=== PATIENT | female | born 1950 | race Caucasian/White ===

== ENCOUNTER → 2017-04-07 | Outpatient (CLI) | payer MEDICARE ==
--- NOTE | 2017-04-07 15:49 | CT ---
EXAMINATION TYPE: CT thoracic spine wo con DATE OF EXAM: 04/07/2017 COMPARISON: NONE HISTORY: Middle back pain. No known injury. CT DLP: 1251 mGycm Automated exposure control for dose reduction was used. Helical acquisition through the thoracic spin e. Coronal and sagittal reconstructions. FINDINGS: Postop changes are noted to the thoracic lumbar spine. There is artifact present. Thoracic vertebral bodies are intact. There is maintained height and alignment. There is multilevel s pondylosis. Vacuum phenomenon present at the intervertebral region of multiple levels. No significant spinal stenosis. No sizable disc herniation. Some facet arthropathy changes present at the lower lum bar levels. T12-L1 show some hypertrophic change at the ligamentum flavum likely encroaching on the l ateral recesses. No definite foraminal encroachment. There is mild spinal curvature. The heart may be enlarged. IMPRESSION: POSTOP CHANGES. DEGENERATIVE DISC DISEASE. FACET ARTHROPATHY. MILD SPINAL CURVATURE. ADDITIONAL FINDI NGS ABOVE.
== END | disposition home or self-care (01) ==
LOC: RADCTMAIN 15:05
PROVIDERS: ATTEND Orthopaedic Surgery
DX: M51.34 Other intervertebral disc degeneration, thoracic region (principal); M46.04 Spinal enthesopathy, thoracic region; M43.8X4 Other specified deforming dorsopathies, thoracic region; Z98.890 Other specified postprocedural states
CPT/HCPCS: 72128

== ENCOUNTER 2017-04-26 14:04 | Observation (INO) | payer MEDICARE ==
[2017-04-26] MEDS ORDERED: SODIUM CHLORIDE 0.9% 1,000 ML IV STA ×2 (14:23)
--- NOTE | 2017-04-26 14:42 | ED ---
General Adult HPI - General Chief complaint: Syncope Stated complaint: spouse states she blacked out in the car Time Seen by Provider: 04/26/17 14:22 Source: patient, RN notes reviewed, old records reviewed Mode of arrival: wheelchair Limitations: no limitations - History of Present Illness Initial comments: This is a 66-year-old female to the ER for evaluation. This patient presents today for evaluation of syncopal event. Patient was driving with family member , room began spinning, patient began to feel weak and lightheaded and then passed out. Patient's states there was then seizure-like activity patient stated blankly into space for about 2 minutes and no symptoms persisted. Patient has been feeling fine lately no nausea no vomiting no fevers. No other significant symptoms or complaints. Patient feels a little shaky at this time with headache denies chest pain or shortness of breath. No recent travel history no change of medications denies drugs or alcohol. Patient states she has had similar symptoms before I did see a neurologist for abnormal CT findings - Related Data Home Medications Medication Instructions Recorded Confirmed Baclofen [Lioresal] 10 mg PO BID 04/26/17 04/26/17 Cetirizine HCl [Zyrtec] 10 mg PO DAILY 04/26/17 04/26/17 Cholecalciferol (Vitamin D3) 2,000 unit PO DAILY 04/26/17 04/26/17 [Vitamin D3] DULoxetine HCL [Cymbalta] 60 mg PO DAILY 04/26/17 04/26/17 Dicyclomine [Bentyl] 20 mg PO QID PRN 04/26/17 04/26/17 Gabapentin [Neurontin] 600 mg PO Q6H 04/26/17 04/26/17 Levothyroxine Sodium [Synthroid] 112 mcg PO DAILY 04/26/17 04/26/17 Liothyronine Sodium [Cytomel] 10 mcg PO DAILY 04/26/17 04/26/17 Losartan Potassium [Cozaar] 100 mg PO DAILY 04/26/17 04/26/17 Meloxicam [Mobic] 15 mg PO DAILY 04/26/17 04/26/17 Multivitamins, Thera [Multivitamin 1 tab PO DAILY 04/26/17 04/26/17 (formulary)] Oxybutynin Chloride [Ditropan] 5 mg PO BID 04/26/17 04/26/17 Pantoprazole Sodium [Protonix] 40 mg PO DAILY 04/26/17 04/26/17 amLODIPine [Norvasc] 5 mg PO DAILY 04/26/17 04/26/17 oxyCODONE-APAP 10-325MG [Percocet 1 tab PO Q8H PRN 04/26/17 04/26/17 10-325 mg] Allergies Allergy/AdvReac Type Severity Reaction Status Date / Time adhesive tape Allergy Rash/Hives Verified 04/26/17 14:44 hydrocodone [From Vicodin] Allergy Rash/Hives Verified 04/26/17 14:44 metaxalone [From Skelaxin] Allergy Rash/Hives Verified 04/26/17 14:44 methocarbamol [From Robaxin] Allergy Rash/Hives Verified 04/26/17 14:44 Sulfa (Sulfonamide Allergy Rash/Hives Verified 04/26/17 14:44 Antibiotics) Review of Systems ROS Statement: Those systems with pertinent positive or pertinent negative responses have been documented in the HPI. ROS Other: All systems not noted in ROS Statement are negative. 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, back pain History of Any Multi-Drug Resistant Organisms: None Reported Past Surgical History: Back Surgery, Cholecystectomy, Joint Replacement, Orthopedic Surgery Additional Past Surgical History / Comment(s): left knee and left hip replacement, right wrist surgery Past Psychological History: Anxiety Smoking Status: Never smoker Past Alcohol Use History: None Reported Past Drug Use History: None Reported General Exam Limitations: no limitations General appearance: alert, in no apparent distress Head exam: Present: atraumatic, normocephalic, normal inspection Eye exam: Present: normal appearance, PERRL, EOMI. Absent: scleral icterus, conjunctival injection, periorbital swelling ENT exam: Present: normal exam, mucous membranes moist Neck exam: Present: normal inspection. Absent: tenderness, meningismus, lymphadenopathy Respiratory exam: Present: normal lung sounds bilaterally. Absent: respiratory distress, wheezes, rales, rhonchi, stridor Cardiovascular Exam: Present: regular rate, normal rhythm, normal heart sounds. Absent: systolic murmur, diastolic murmur, rubs, gallop, clicks GI/Abdominal exam: Present: soft, normal bowel sounds. Absent: distended, tenderness, guarding, rebound, rigid Extremities exam: Present: normal inspection, full ROM, normal capillary refill. Absent: tenderness, pedal edema, joint swelling, calf tenderness Back exam: Present: normal inspection Neurological exam: Present: alert, oriented X3, CN II-XII intact Psychiatric exam: Present: normal affect, normal mood Skin exam: Present: warm, dry, intact, normal color. Absent: rash Course Vital Signs 04/26/17 14:06 Temperature 97.0 F L Pulse Rate 83 Respiratory 16 Rate Blood Pressure 141/72 O2 Sat by Pulse 99 Oximetry - Reevaluation(s) Reevaluation #1: 04/26/17 15:38 She does have history of nodules on brain, patient is aware of these, may have been cause of prior episodes of syncope, same findings on today's CT brain Reevaluation #2: 04/26/17 15:39 Patient is without syncopal event here in the ER EKG Findings - EKG Comments: EKG Findings:: EKG shows normal sinus rate of 84, OH 154, QRS 132, QTc 479 Medical Decision Making - Medical Decision Making 66 female ER for evaluation of syncope. Patient has history of syncope which was similar events. Patient's symptoms lasted about 2 hours, patient new symptom is that she also seizure-like activity and confusion. Patient be admitted for neurological evaluation - Lab Data Result diagrams: 04/26/17 14:20 04/26/17 14:20 Lab Results 04/26/17 04/26/17 04/26/17 Range/Units 14:20 14:20 14:20 WBC 6.3 (3.8-10.6) k/uL RBC 4.88 (3.80-5.40) m/uL Hgb 14.0 (11.4-16.0) gm/dL Hct 42.5 (34.0-46.0) % MCV 87.1 (80.0-100.0) fL MCH 28.6 (25.0-35.0) pg MCHC 32.8 (31.0-37.0) g/dL RDW 14.5 (11.5-15.5) % Plt Count 284 (150-450) k/uL Neutrophils % 55 % Lymphocytes % 29 % Monocytes % 8 % Eosinophils % 5 % Basophils % 1 % Neutrophils # 3.5 (1.3-7.7) k/uL Lymphocytes # 1.9 (1.0-4.8) k/uL Monocytes # 0.5 (0-1.0) k/uL Eosinophils # 0.3 (0-0.7) k/uL Basophils # 0.1 (0-0.2) k/uL PT (9.0-12.0) sec INR (<1.2) APTT (22.0-30.0) sec D-Dimer (<0.60) mg/L FEU Sodium 139 (137-145) mmol/L Potassium 3.8 (3.5-5.1) mmol/L Chloride 103 (98-107) mmol/L Carbon Dioxide 25 (22-30) mmol/L Anion Gap 11 mmol/L BUN 15 (7-17) mg/dL Creatinine 0.63 (0.52-1.04) mg/dL Est GFR (MDRD) Af Amer >60 (>60 ml/min/1.73 sqM) Est GFR (MDRD) Non-Af >60 (>60 ml/min/1.73 sqM) Glucose 128 H (74-99) mg/dL Calcium 9.2 (8.4-10.2) mg/dL Phosphorus 3.2 (2.5-4.5) mg/dL Magnesium 1.8 (1.6-2.3) mg/dL Total Bilirubin 0.5 (0.2-1.3) mg/dL AST 35 (14-36) U/L ALT 45 (9-52) U/L Alkaline Phosphatase 166 H (38-126) U/L Total Creatine Kinase 40 (30-135) U/L CK-MB (CK-2) 0.9 (0.0-2.4) ng/mL CK-MB (CK-2) Rel Index 2.3 Troponin I <0.012 (0.000-0.034) ng/mL Total Protein 6.8 (6.3-8.2) g/dL Albumin 4.1 (3.5-5.0) g/dL Urine Color Urine Appearance (Clear) Urine pH (5.0-8.0) Ur Specific [place] (1.001-1.035) Urine Protein (Negative) Urine Glucose (UA) (Negative) Urine Ketones (Negative) Urine Blood (Negative) Urine Nitrite (Negative) Urine Bilirubin (Negative) Urine Urobilinogen (<2.0) mg/dL Ur Leukocyte Esterase (Negative) 04/26/17 04/26/17 Range/Units 14:20 15:15 WBC (3.8-10.6) k/uL RBC (3.80-5.40) m/uL Hgb (11.4-16.0) gm/dL Hct (34.0-46.0) % MCV (80.0-100.0) fL MCH (25.0-35.0) pg MCHC (31.0-37.0) g/dL RDW (11.5-15.5) % Plt Count (150-450) k/uL Neutrophils % % Lymphocytes % % Monocytes % % Eosinophils % % Basophils % % Neutrophils # (1.3-7.7) k/uL Lymphocytes # (1.0-4.8) k/uL Monocytes # (0-1.0) k/uL Eosinophils # (0-0.7) k/uL Basophils # (0-0.2) k/uL PT 10.3 (9.0-12.0) sec INR 1.0 (<1.2) APTT 23.5 (22.0-30.0) sec D-Dimer 0.86 H (<0.60) mg/L FEU Sodium (137-145) mmol/L Potassium (3.5-5.1) mmol/L Chloride (98-107) mmol/L Carbon Dioxide (22-30) mmol/L Anion Gap mmol/L BUN (7-17) mg/dL Creatinine (0.52-1.04) mg/dL Est GFR (MDRD) Af Amer (>60 ml/min/1.73 sqM) Est GFR (MDRD) Non-Af (>60 ml/min/1.73 sqM) Glucose (74-99) mg/dL Calcium (8.4-10.2) mg/dL Phosphorus (2.5-4.5) mg/dL Magnesium (1.6-2.3) mg/dL Total Bilirubin (0.2-1.3) mg/dL AST (14-36) U/L ALT (9-52) U/L Alkaline Phosphatase (38-126) U/L Total Creatine Kinase (30-135) U/L CK-MB (CK-2) (0.0-2.4) ng/mL CK-MB (CK-2) Rel Index Troponin I (0.000-0.034) ng/mL Total Protein (6.3-8.2) g/dL Albumin (3.5-5.0) g/dL Urine Color Yellow Urine Appearance Clear (Clear) Urine pH 7.0 (5.0-8.0) Ur Specific [place] 1.015 (1.001-1.035) Urine Protein Trace H (Negative) Urine Glucose (UA) Negative (Negative) Urine Ketones Negative (Negative) Urine Blood Negative (Negative) Urine Nitrite Negative (Negative) Urine Bilirubin Negative (Negative) Urine Urobilinogen 2.0 (<2.0) mg/dL Ur Leukocyte Esterase Negative (Negative) - Radiology Data Radiology results: report reviewed (CT brain negative, CT chest negative.), image reviewed Disposition Clinical Impression: Vasovagal syncope Disposition: ADMITTED IP TO THIS [facility] Condition: Fair Referrals: Cian Bonilla MD [Primary Care Provider] - 1-2 days
[2017-04-26 14:43] LABS: Basophils # (A) 0.1 k/uL (0-0.2); Basophils % (A) 1 %; CH 28.3; CHCM 32.6; Eosinophils # (A) 0.3 k/uL (0-0.7); Eosinophils % (A) 5 %; HCT 42.5 % (34.0-46.0); HDW 2.38; Luc # (Auto) 0.16; Luc % (Auto) 3; Lymphocytes # (A) 1.9 k/uL (1.0-4.8); Lymphocytes % (A) 29 %; MCH 28.6 pg (25.0-35.0); MCHC 32.8 g/dL (31.0-37.0); MCV 87.1 fL (80.0-100.0); Mean Platelet Volume 8.2; Monocytes # (A) 0.5 k/uL (0-1.0); Monocytes % (A) 8 %; Neutrophils # (A) 3.5 k/uL (1.3-7.7); Neutrophils % (A) 55 %; RBC 4.88 m/uL (3.80-5.40); RDW 14.5 % (11.5-15.5); WBC 6.3 k/uL (3.8-10.6)
[2017-04-26 14:56] LABS: ALT 45 U/L (9-52); AST 35 U/L (14-36); Alkaline Phosphatase 166 U/L (38-126); Anion Gap 11 mmol/L; Blood Urea Nitrogen 15 mg/dL (7-17); Calcium 9.2 mg/dL (8.4-10.2); Carbon Dioxide 25 mmol/L (22-30); Chloride 103 mmol/L (98-107); Glucose 128 mg/dL (74-99); Magnesium 1.8 mg/dL (1.6-2.3); Non-African American GFR(MDRD) >60 (>60 ml/min/1.73 sqM); Phosphorus 3.2 mg/dL (2.5-4.5); Sodium 139 mmol/L (137-145); Total Bilirubin 0.5 mg/dL (0.2-1.3); Total Protein 6.8 g/dL (6.3-8.2)
[2017-04-26 14:59] LABS: Partial Thromboplastin Time 23.5 sec (22.0-30.0); Prothrombin Time 10.3 sec (9.0-12.0)
[2017-04-26 15:02] LABS: Potassium 3.8 mmol/L (3.5-5.1)
[2017-04-26 15:08] LABS: Creatine Kinase 40 U/L (30-135)
[2017-04-26] MEDS ORDERED: RX INFO: IV CONTRAST WAS GIVEN 1 EACH MISC MISCELLANE PRN (15:08)
--- NOTE | 2017-04-26 15:09 | CT ---
EXAMINATION TYPE: CT brain wo con DATE OF EXAM: 04/26/2017 HISTORY: Blacked out CT DLP: 985.6 mGycm. Automated Exposure Control for Dose Reduction was Utilized. TECHNIQUE: CT scan of the head is performed without contrast. COMPARISON: None. FINDINGS: There is no acute intracranial hemorrhage or midline shift identified. There is diffuse v entricular and sulcal prominence consistent with diffuse age-related cerebral atrophy. There is low- attenuation in the periventricular white matter consistent with chronic small vessel ischemic change. There is 1.5 cm transverse by 1.4 cm AP diameter by 1.1 cm craniocaudal hyperdense oval well-define d lesion anterior suprasellar level on axial image 15 and sagittal image 25. The globes are intact an d the visualized sinuses are clear. No sellar mass is noted. IMPRESSION: No acute intracranial hemorrhage or midline shift. There is mild diffuse age-related ce rebral atrophy and chronic small vessel ischemic change noted. Round anterior hyperdense suprasellar extra-axial mass, differential would favor vascular etiology or aneurysm based on location relative to the kaibab of [place], neoplasm or meningioma is in differential, other etiologies are not excluded . Correlation with old outside CT and MRI is advised. Further investigation with MRI/MRA study can be performed based on clinical and outside imaging correlation.
[2017-04-26 15:21] LABS: Creatine Kinase MB 0.9 ng/mL (0.0-2.4); Troponin I <0.012 ng/mL (0.000-0.034)
[2017-04-26 15:30] LABS: Appearance,Urine Clear (Clear); Bilirubin,Urine Negative (Negative); Glucose,Urine (UA) Negative (Negative); Ketones,Urine Negative (Negative); Leukocyte Esterase,Urine Negative (Negative); Nitrite,Urine Negative (Negative); Protein,Urine Trace (Negative); Specific Gravity,Urine 1.015 (1.001-1.035); UA Billing (MACRO vs. MICRO) CHEM
[2017-04-26] MEDS ORDERED: ASPIRIN 325 MG TAB PO STA (15:34)
--- NOTE | 2017-04-26 15:48 | CT ---
EXAMINATION TYPE: CT angio chest DATE OF EXAM: 04/26/2017 COMPARISON: NONE HISTORY: Syncope today. Chest pain per order. CT DLP: 588 mGycm. Automated Exposure Control for Dose Reduction was Utilized. CONTRAST: CTA scan of the thorax is performed with IV Contrast, patient injected with 90 mL of Omnipaque 350, p ulmonary embolism protocol. MIP Images are created on CT scanner and reviewed. FINDINGS: LUNGS: Dependent atelectasis is present both lower lobes. Central increased opacity mosaic attenuatio n is consistent with mild congestion. No suspicious focal consolidation is seen. No pleural effusion or pneumothorax is present bilaterally. MEDIASTINUM: There is suboptimal bolus with heterogeneity and equal contrast in right and left heart systems but there is no convincing CT evidence for acute pulmonary embolism. There are no greater th an 1 cm hilar or mediastinal lymph nodes. No significant pericardial effusion is seen. Cardiomegaly is present. OTHER: There are posterior interpedicular rods and screws transfixing T11-L1 levels bilaterally. Ther e is moderate to severe anterior spurring mid to lower thoracic spine above this. There is sclerosis and disc space narrowing T10-T11 level. There is posterior spur disc effacing anterior thecal sac L1- L2 level on sagittal image 78. IMPRESSION: 1. Suboptimal study without CT evidence for pulmonary embolism. 2. Cannot exclude CHF exacerbation as there is cardiomegaly with suspected mild central vascular sarah beth estion, clinical correlation advised. No suspicious focal infiltrate noted.
--- NOTE | 2017-04-26 17:24 | US ---
EXAMINATION TYPE: US carotid duplex BILAT DATE OF EXAM: 04/26/2017 COMPARISON: NONE CLINICAL HISTORY: Stenosis. Weakness on admission. EXAM MEASUREMENTS: RIGHT: Peak Systolic Velocity (PSV) cm/sec ----- Right CCA: 85.9 ----- Right ICA: 79.0 ----- Right ECA: 56.9 ICA/CCA ratio: 0.9 RIGHT: End Diastole cm/sec ----- Right CCA: 6.9 ----- Right ICA: 13.5 ----- Right ECA: 6.5 LEFT: Peak Systolic Velocity (PSV) cm/sec ----- Left CCA: 69.3 ----- Left ICA: 100.0 ----- Left ECA: 78.2 ICA/CCA ratio: 1.4 LEFT: End Diastole cm/sec ----- Left CCA: 11.9 ----- Left ICA: 22.1 ----- Left ECA: 9.2 VERTEBRALS (direction of flow): Right Vertebral: Antegrade Left Vertebral: Antegrade Rhythm: Normal Patient has short thick neck with tortuous vessels, technically difficult study. No significant [facility] elevations. Exam is noted technically difficult and suboptimal as detailed above. Grayscale images show no signif icant focal plaque at carotid bulb level bilaterally. Velocity measurements and ratios in visualized portion of both internal carotid arteries is within normal limits. IMPRESSION: Suboptimal study without hemodynamically significant stenosis clearly seen in either int ernal carotid artery.
[2017-04-26] MEDS: SODIUM CHLORIDE 0.9% 1,000 ML IV SCH (17:35)
[2017-04-26 18:02] VITALS: BMI 36.1
--- NOTE | 2017-04-26 18:38 | HP ---
HISTORY AND PHYSICAL CHIEF COMPLAINT: 66-year-old, white female, brought for syncopal episode. HISTORY OF PRESENT ILLNESS: 66-year-old, white female came in for syncope. Room began spitting. Became weak, lightheadedness and passed out. She had seizure-like activity. Apparently about ten minutes and no symptoms persisted. No nausea. No vomiting. No fevers. Denies headache. Denies chest pain, shortness of breath. No travel history. No drug or alcohol. She had similar symptoms before and did see a neurologist, had normal CT scan findings. HOME MEDICATIONS: Include , Zyrtec, vitamin D3, Cymbalta, Bentyl, Neurontin, Synthroid, Cytomel, Cozaar, Mobic, multivitamin, Ditropan, Protonix, Norvasc and Percocet. ALLERGIES: TO ADHESIVE, HYDROCODONE, METHOCARBAMOL, SULFA. REVIEW OF SYMPTOMS: 14-point review of system negative except for mentioned in HPI. PAST MEDICAL HISTORY: Hypertension, nodules on her pituitary gland. Back pain. Back surgery, cholecystectomy, joint replacement. Orthopedic surgery, left knee and left hip replacement, right wrist surgery, anxiety. SOCIAL HISTORY: No smoking, no alcohol. No illicit drugs. PHYSICAL EXAM: Temp 97, pulse 83, respiratory rate 12 to 16, blood pressure 140s over 70s. O2 99% on room air. CARDIOVASCULAR: S1, S2. Lungs transmitted upper sounds. GI soft, nontender. HEMATOLOGIC: Negative Homans. Psych fair mood and affect. Back normal inspection. SKIN: Warm dry, intact. Ophthalmologic: Pupils equal, round, reactive to light and accommodation. ENT external ear canals within normal limits. EKG sinus rhythm. ASSESSMENT: 1. Syncope of unclear etiology. 2. Possible seizure-like activity. 3. Confusion. 4. Abnormal CAT scan, rule out aneurysm. Will discuss with the patient. Possible MRI and MRA of the brain. See if she has had that done before. Vasovagal syncope is more likely cause. Please see further orders in the chart. We will check her thyroid levels. Please see further orders. MMODL / IJN: [id number] /
[2017-04-27] MEDS ORDERED: MELATONIN 5 MG TABLET PO PRN (01:41)
[2017-04-27] MEDS: SODIUM CHLORIDE 0.9% 1,000 ML IV SCH ×2 (02:24→19:24)
[2017-04-27 04:17] LABS: Cholesterol 156 mg/dL (<200); HDL Cholesterol 52 mg/dL (40-60)
[2017-04-27] MEDS ORDERED: POTASSIUM CHLORIDE ER 20 MEQ TAB.ER PO STA (09:24)
[2017-04-27] MEDS: METOPROLOL TARTRATE 25 MG TAB PO SCH ×2 (10:13→19:41)
[2017-04-27] MEDS: ASPIRIN 325 MG TAB PO SCH (10:14)
[2017-04-27] MEDS: amLODIPine 5 MG TAB PO SCH (10:14)
[2017-04-27] MEDS: LEVOTHYROXINE 100 MCG TAB PO SCH (10:14)
[2017-04-27] MEDS ORDERED: DICYCLOMINE 20 MG TAB PO PRN (10:25)
[2017-04-27] MEDS ORDERED: ONDANSETRON 4 MG/2 ML VIAL IVP PRN (10:29)
[2017-04-27] MEDS: oxyCODONE-APAP 10-325MG 1 EACH TAB PO PRN ×2 (10:45→19:41)
--- NOTE | 2017-04-27 10:54 | CONS ---
CONSULTATION This is a 66-year-old lady with a history of hypertension, hypothyroidism, previous back surgery, and multiple joint replacements, specifically of the left hip and knee. She was traveling in the car with her boyfriend and then she had an episode when she felt dizzy. When she felt dizzy, she apparently mentioned that to her boyfriend and the next minute she remembers having woken up and then felt a little nauseous, but did not have any vomiting. She did not have any loss of bladder or bowel control. Apparently, her boyfriend noted some seizure-like activity when she threw her hands up. This is the 1st time she had an episode of this magnitude. Two years ago she blacked out briefly and had a neuro workup. Details are unavailable. She sees a doctor in the [facility] practice. She denies any chest pain. She is resting comfortably. The whole plane of the picture suggests more of a neurological event than a cardiac syncopal event. However she does not have any other major medical problems other than hypertension, which has been generally under good control. PAST MEDICAL HISTORY: 1. Hypertension. 2. Hypothyroidism on replacement therapy. 3. History of a syncope type episode of a very brief duration of less than a few seconds, 2 years ago. 4. History of back surgery, cholecystectomy, left hip and knee arthroplasty. SOCIAL HISTORY: Patient is not a smoker. Does not use recreational drugs and does not consume alcohol. ALLERGIES: SHE IS ALLERGIC TO VICODIN IS SKELAXIN, ROBAXIN, SULFA. MEDICATIONS: Include Synthroid 112 mcg daily, losartan 100 mg daily, Mobic, amlodipine 5 mg daily, Protonix, and she also takes Ditropan. REVIEW OF SYMPTOMS: Review of systems unremarkable for the episode discussed above. Specifically, she does not have any hematemesis, melena, genitourinary symptoms, fevers, chills, or cough with expectoration. She does have some anxiety issues. PHYSICAL EXAMINATION: Blood pressure was 160/80, pulse rate is about 80 per minute, regular. HEENT: Unremarkable. Fundus was not examined by me. Neck is supple. No JVD. I do not hear a carotid bruit. There is no thyromegaly. Heart exam reveals S1, S2 with slightly tachycardic. No murmurs or rubs. Lungs are clear. Abdomen is soft, nontender. Lower extremities reveal palpable pulses. No edema. Central nervous system is normal. EKG revealed a sinus mechanism with a right bundle branch block type pattern. No acute changes. LABORATORY DATA: Suggests that troponins are normal. Thyroid functions suggest a low TSH. IMPRESSION: 1. Episode of what seems to be more or less a syncope or more likely to be a seizure. 2. Hypertension. 3. Hypothyroidism. 4. Elevated D-dimer. RECOMMENDATIONS: I am recommending that we cut down the Synthroid from 112-100 mcg daily. I will optimize BP control by resumption of amlodipine and add a small dose of beta jhonny. Her clinical scenario suggests more likely seizure than syncope. I will continue telemetry monitoring. Obtain echocardiogram. CT scan raises the possibility of an aneurysm. This needs to be further clarified by MR angiography or CT angiography. I will await input from Neurology. We will do an echo tomorrow and optimize BP control and continue telemetry. I discussed my thoughts in detail with the patient. Thank you very much for the consult. IVONNE / IJN: [id number] /
[2017-04-27] MEDS: MELOXICAM 7.5 MG TAB PO SCH (11:25)
[2017-04-27] MEDS: OXYBUTYNIN CHLORIDE 5 MG TAB PO SCH ×2 (11:25→19:41)
[2017-04-27] MEDS: LORATADINE 10 MG TAB PO SCH (11:25)
[2017-04-27] MEDS: GABAPENTIN 300 MG CAP PO SCH ×3 (11:26→19:41)
[2017-04-27] MEDS: DULoxetine HCL 60 MG CAPSULE.DR PO SCH (11:26)
[2017-04-27] MEDS: LIOTHYRONINE SODIUM 5 MCG TAB PO SCH (11:26)
[2017-04-27] MEDS: LOSARTAN 50 MG TAB PO SCH (11:26)
--- NOTE | 2017-04-27 13:15 | P.CONS ---
History of Present Illness - Reason for Consult Consult date: 04/27/17 syncope - Chief Complaint syncope - History of Present Illness is a pleasant 66-year-old female being evaluated by the neurology service for syncope and possible seizure activity.she states she was in a car as a passenger with her boyfriend and she began to feel weak and lightheaded. Soon after that she had an episode of syncope with what is described as a generalized tonic posturing. She reportedly lasted for about 2-3 minutes. She was a little confused when she came out of this episode. There was no tongue biting or incontinence nausea or vomiting. She had a mild headache after. There was a little bit of confusion until the time she arrived to the emergency room, and she did notice some shaking of her right armstopped after about a half -hour. She had a similar episode about 2 years ago that was also witnessed. But at that time she was seated at a table she lost consciousness for only a few seconds, and there was no confusion afterwards.vital signs on admission were normal. Her EKG was normal. Her CT of the brain without contrast showed no acute intracranial abnormalities. There was some age-related cerebral atrophy and chronic small vessel ischemic changes. There was a finding of a round anterior hyperdense suprasellar mass. Differential was thought to favor a vascular etiology or aneurysm based on its location. Neoplasm and meningioma would be also in the differential. Further investigation was recommended with an MRI and MRA study. And this is been ordered . EEG has also been ordered. at the time of my exam she is resting comfortably in bed in no acute distress.she denies any new neurological symptoms. 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, back pain History of Any Multi-Drug Resistant Organisms: None Reported Past Surgical History: Back Surgery, Cholecystectomy, Joint Replacement, Orthopedic Surgery Additional Past Surgical History / Comment(s): left knee and left hip replacement, right wrist surgery, bilateral carpal tunnel release Past Anesthesia/Blood Transfusion Reactions: No Reported Reaction Past Psychological History: Anxiety Smoking Status: Never smoker Past Alcohol Use History: None Reported Past Drug Use History: None Reported - Past Family History Mother Family Medical History: Cancer Additional Family Medical History / Comment(s): from [facility] Father Family Medical History: Diabetes Mellitus Additional Family Medical History / Comment(s): from DM complications Medications and Allergies Home Medications Medication Instructions Recorded Confirmed Type Baclofen [Lioresal] 10 mg PO BID 04/26/17 04/26/17 History Cetirizine HCl [Zyrtec] 10 mg PO DAILY 04/26/17 04/26/17 History Cholecalciferol (Vitamin D3) 2,000 unit PO DAILY 04/26/17 04/26/17 History [Vitamin D3] DULoxetine HCL [Cymbalta] 60 mg PO DAILY 04/26/17 04/26/17 History Dicyclomine [Bentyl] 20 mg PO QID PRN 04/26/17 04/26/17 History Gabapentin [Neurontin] 600 mg PO Q6H 04/26/17 04/26/17 History Levothyroxine Sodium [Synthroid] 112 mcg PO DAILY 04/26/17 04/26/17 History Liothyronine Sodium [Cytomel] 10 mcg PO DAILY 04/26/17 04/26/17 History Losartan Potassium [Cozaar] 100 mg PO DAILY 04/26/17 04/26/17 History Meloxicam [Mobic] 15 mg PO DAILY 04/26/17 04/26/17 History Multivitamins, Thera [Multivitamin 1 tab PO DAILY 04/26/17 04/26/17 History (formulary)] Oxybutynin Chloride [Ditropan] 5 mg PO BID 04/26/17 04/26/17 History Pantoprazole Sodium [Protonix] 40 mg PO DAILY 04/26/17 04/26/17 History amLODIPine [Norvasc] 5 mg PO DAILY 04/26/17 04/26/17 History oxyCODONE-APAP 10-325MG [Percocet 1 tab PO Q8H PRN 04/26/17 04/26/17 History 10-325 mg] Allergies Allergy/AdvReac Type Severity Reaction Status Date / Time adhesive tape Allergy Rash/Hives Verified 04/26/17 14:44 hydrocodone [From Vicodin] Allergy Rash/Hives Verified 04/26/17 14:44 metaxalone [From Skelaxin] Allergy Rash/Hives Verified 04/26/17 14:44 methocarbamol [From Robaxin] Allergy Rash/Hives Verified 04/26/17 14:44 Sulfa (Sulfonamide Allergy Rash/Hives Verified 04/26/17 14:44 Antibiotics) Physical Exam Vitals: Vital Signs Temp Pulse Pulse Resp BP BP Pulse Ox 04/27/17 12:00 98.4 F 81 16 154/84 98 04/27/17 08:00 97.8 F 95 18 166/80 96 04/27/17 04:00 98.3 F 83 18 157/79 98 04/27/17 00:00 18 04/26/17 22:28 82 18 160/79 95 04/26/17 20:00 18 04/26/17 19:33 98 F 75 18 148/75 96 04/26/17 16:27 97.9 F 93 18 199/84 96 04/26/17 16:10 97.0 F L 87 20 160/82 97 04/26/17 15:45 77 20 169/82 97 04/26/17 14:06 97.0 F L 83 16 141/72 99 Intake and Output 04/26/17 04/27/17 04/27/17 22:59 06:59 14:59 Other: Voiding Method Toilet Toilet Toilet # Voids 1 Weight 89.5 kg - Constitutional General appearance: average body habitus, cooperative, no acute distress - EENT Eyes: no abnormal pupil, EOMI, PERRLA, no ptosis ENT: hearing grossly normal - Neck Neck: normal ROM, no rigidity - Respiratory Respiratory: negative: prolonged expiration, prolonged inspiration - Cardiovascular Rhythm: regular - Gastrointestinal General gastrointestinal: no distended, no tenderness - Neurologic The patient is alert awake and oriented 3. Speech and language are normal. There is no facial asymmetry. Strength is 5 out of 5 in bilateral upper and lower extremities. There is no sensory deficit. No tremors or seizures are seen. Cranial nerves II through XII are intact globally.is no pronator drift. Finger-nose testing is within normal limits. No visual deficits exist. Results CBC & Chem 7: 04/26/17 14:20 04/26/17 14:20 Labs: Abnormal Lab Results - Last 24 Hours (Table) 04/26/17 04/26/17 04/26/17 Range/Units 14:20 14:20 14:20 D-Dimer 0.86 H (<0.60) mg/L FEU Glucose 128 H (74-99) mg/dL Alkaline Phosphatase 166 H (38-126) U/L TSH <0.015 L (0.465-4.680) mIU/L Urine Protein (Negative) 04/26/17 Range/Units 15:15 D-Dimer (<0.60) mg/L FEU Glucose (74-99) mg/dL Alkaline Phosphatase (38-126) U/L TSH (0.465-4.680) mIU/L Urine Protein Trace H (Negative) Microbiology - Last 24 Hours (Table) 04/26/17 15:15 Urine Culture - Preliminary Urine,Voided Assessment and Plan (1) Syncope and collapse Current Visit: Yes Status: Acute Code(s): R55 - SYNCOPE AND COLLAPSE SNOMED Code(s): 267202933 (2) Generalized seizure Current Visit: Yes Status: Suspected Code(s): R56.9 - UNSPECIFIED CONVULSIONS SNOMED Code(s): 433891650 (3) Abnormal computed tomography scan Current Visit: Yes Status: Chronic Code(s): R93.8 - ABNORMAL FINDINGS ON DIAGNOSTIC IMAGING OF BODY STRUCTURES SNOMED Code(s): 595003707 (4) Intracranial mass Current Visit: Yes Status: Suspected Code(s): R90.0 - INTCRN SPACE- OCCUPYING LESION FOUND ON DX IMAGING OF CNSL SNOMED Code(s): 10185626 (5) Hypertension Current Visit: Yes Status: Chronic Code(s): I10 - ESSENTIAL (PRIMARY) HYPERTENSION SNOMED Code(s): 15289462 (6) Hypothyroidism Current Visit: Yes Status: Chronic Code(s): E03.9 - HYPOTHYROIDISM, UNSPECIFIED SNOMED Code(s): 32988883 (7) Chronic back pain Current Visit: Yes Status: Chronic Code(s): M54.9 - DORSALGIA, UNSPECIFIED; G89.29 - OTHER CHRONIC PAIN SNOMED Code(s): 842504615 Plan: the patient did suffer a syncopal episode where there was likely some seizure activity. She explains to other episodes of syncope or there was no witnessed seizure activity. Because of this and her CT findings on MRI and MRA have been ordered. An EEG has also been ordered. We will start her on Keppra 500 mg twice a day. Seizure precautions to be taken. Continue neurological checks. Continue cardiology workup as needed.we will continue to follow and make further recommendations based on the above studies. I have reviewed the history and physical on the above patient. I have reviewed the above note, and agree.
--- NOTE | 2017-04-27 14:44 | PN ---
PROGRESS NOTE SUBJECTIVE: 66-year-old, white female, with syncope. This patient has cardiac and Neurology pending. MRI of the brain is pending as well as EEG that were all ordered. Rule out seizure disorder, rule out any aneurysm of the brain. Neurology consult is pending as well as cardiology. Cardiology saw the patient today and wanted to monitor the patient overnight which will be done. Cardiovascular S1, S2. Lungs are clear. GI is soft, nontender. Negative Homans. ASSESSMENT: 1. Syncope unclear etiology. 2. Abnormal CT of the brain possible for aneurysm. MRI and EEG are pending. Please see further orders. MMODL / IJN: [id number] /
[2017-04-27] MEDS: levETIRAcetam 500 MG TAB PO SCH (19:40)
[2017-04-28] MEDS: SODIUM CHLORIDE 0.9% 1,000 ML IV SCH ×2 (05:55→16:54)
[2017-04-28] MEDS: LIOTHYRONINE SODIUM 5 MCG TAB PO SCH (05:57)
[2017-04-28] MEDS: GABAPENTIN 300 MG CAP PO SCH ×2 (05:57→09:27)
[2017-04-28] MEDS: LEVOTHYROXINE 100 MCG TAB PO SCH (05:58)
[2017-04-28] MEDS ORDERED: PANTOPRAZOLE 40 MG TABLET PO SCH (07:30)
[2017-04-28 07:52] VITALS: RESP 18
[2017-04-28] MEDS ORDERED: MULTIVITAMINS, THERA 1 EACH TAB PO SCH (09:00)
[2017-04-28] MEDS ORDERED: CHOLECALCIFEROL 1,000 UNIT TAB PO SCH (09:00)
[2017-04-28] MEDS: levETIRAcetam 500 MG TAB PO SCH (09:25)
[2017-04-28] MEDS: OXYBUTYNIN CHLORIDE 5 MG TAB PO SCH (09:25)
[2017-04-28] MEDS: amLODIPine 5 MG TAB PO SCH (09:25)
[2017-04-28] MEDS: DULoxetine HCL 60 MG CAPSULE.DR PO SCH (09:25)
[2017-04-28] MEDS: LOSARTAN 50 MG TAB PO SCH (09:25)
[2017-04-28] MEDS: METOPROLOL TARTRATE 25 MG TAB PO SCH (09:25)
[2017-04-28] MEDS: ASPIRIN 325 MG TAB PO SCH (09:25)
[2017-04-28] MEDS: LORATADINE 10 MG TAB PO SCH (09:25)
[2017-04-28] MEDS: MELOXICAM 7.5 MG TAB PO SCH (09:26)
[2017-04-28] MEDS: oxyCODONE-APAP 10-325MG 1 EACH TAB PO PRN (09:30)
--- NOTE | 2017-04-28 10:54 | ECHOF ---
Referral Reason:Thrombus MEASUREMENTS -------- HEIGHT: 157.5 cm WEIGHT: 89.4 kg BP: 124/69 IVSd: 1.4 cm (0.6 - 1.1) LVIDd: 3.7 cm (3.9 - 5.3) LVPWd: 1.2 cm (0.6 - 1.1) IVSs: 1.9 cm LVIDs: 2.1 cm LVPWs: 1.8 cm Ao Diam: 3.1 cm (2.0 - 3.7) AV Cusp: 1.8 cm (1.5 - 2.6) LA Diam: 2.9 cm (2.7 - 3.8) MV EXCURSION: 17.570 mm (> 18.000) MV EF SLOPE: 74 mm/s (70 - 150) EPSS: 0.2 cm MV E Dwight: 0.48 m/s MV DecT: 161 ms MV A Dwight: 0.57 m/s MV E/A Ratio: 0.83 RAP: 5.00 mmHg RVSP: 19.45 mmHg FINDINGS -------- Sinus rhythm. This was a technically good study. The left ventricular size is normal. There is mild concentric left ventricular hypertrophy. Overa ll left ventricular systolic function is normal with, an EF between 55 - 60 %. The right ventricle is normal in size and function. The left atrium is normal in size. The right atrium is normal in size. Aortic valve is trileaflet and is mildly thickened. The mitral valve leaflets are mildly thickened. Mild mitral regurgitation is present. Mild tricuspid regurgitation present. The right ventricular systolic pressure, as measured by Doppl er, is 19.45mmHg. There is no pulmonic regurgitation present. The aortic root size is normal. There is no pericardial effusion. CONCLUSIONS -------- 1. Sinus rhythm. 2. This was a technically good study. 3. There is mild concentric left ventricular hypertrophy. 4. Overall left ventricular systolic function is normal with, an EF between 55 - 60 %. 5. The left atrium is normal in size. 6. Aortic valve is trileaflet and is mildly thickened. 7. The mitral valve leaflets are mildly thickened. 8. Mild mitral regurgitation is present. 9. Mild tricuspid regurgitation present. 10. The right ventricular systolic pressure, as measured by Doppler, is 19.45mmHg. 11. There is no pulmonic regurgitation present. 12. The aortic root size is normal. 13. There is no pericardial effusion. PULL OVER MACHINE OPERATOR: Ailyn Escamilla RDCS
--- NOTE | 2017-04-28 11:20 | MR ---
EXAMINATION TYPE: MR angio head wo con DATE OF EXAM: 04/28/2017 COMPARISON: NONE HISTORY: syncopal episode TECHNIQUE: Utilizing 3-D [id number] intracranial MRA of the [place] was performed. FINDINGS: The vertebrobasilar and carotid systems are patent. There is no sizable aneurysm or vascular malform ation. Left vertebral artery is dominant. IMPRESSION: 1. No evidence of vascular malformation or sizable aneurysm.
--- NOTE | 2017-04-28 11:58 | MR ---
EXAMINATION TYPE: MR brain wo/w con DATE OF EXAM: 04/28/2017 COMPARISON: CT brain 04/26/2017 HISTORY: syncopal episode TECHNIQUE: Multiplanar, multisequence images of the brain and brainstem is performed without and with IV contras t, utilizing 9 mL intravenous Gadavist . FINDINGS: Diffusion weighted images demonstrate no evidence of a recent infarct or other diffusion ab normality. There is isointense focus on T1 and T2-weighted sequences along the sphenoid bone at the l evel of the left-sided Meckel's cave which shows homogenous enhancement following contrast administra tion and measures approximately 2.6 x 2.3 x 1.5 cm and is poorly visualized on CT scanning increased signal is noted on inversion recovery sequences.. The focus along the anterior aspect of the sphenoid bone just superior to the sella as seen on CT shows isointense signal on T1 and T2-weighted sequence s, and near uniform enhancement following contrast administration and measures approximately 13 mm in diameter. Additionally, there is somewhat more diffuse enhancement along the dura at the level of t he petrous bone surfaces dorsally superior orbital fissures as well as extension along the clivus. The corpus callosum, pituitary, cervical medullary junction, cerebellopontine angles are within wali l limits. Periventricular scattered hyperintensities are present within the deep white matter on inve rsion recovery and T2-weighted sequences, approximately 10-20 lesions. There is no hemorrhage or hydr ocephalus. The orbits show a symmetric appearance. There are normal vascular flow voids. IMPRESSION: Findings compatible with meningiomas, suspect en plaque meningioma is present as describe d along the sphenoid bone. Nonspecific white matter demyelination most likely due to chronic small ve ssel ischemia.
--- NOTE | 2017-04-28 14:00 | P.PN ---
Subjective Progress Note Date: 04/28/17 Principal diagnosis: syncope with seizure this is a pleasant 66-year-old occasion female continuing to be evaluated by the neurology service for syncope and seizure activity. Recall that she had some generalized tonic posturing. She did have postictal state on presentation to the emergency room. She had 2 syncopal episodes within the last 2 yearsdid not involve any witnessed seizure activity. Recall that his CT of her brain showed no acute intracranial abnormalities, but there was a finding of around anterior hyperdense suprasellar mass. Subsequent MRI and MRA were performed. Her MRA was normal. MRI of the brain showed findings compatible with meningiomas, suspect en plaque meningioma located along the sphenoid bone. There were also some nonspecific white matter changes not necessarily concerning at this time. We did place her on Keppra 500 mg twice a day andshe is tolerating this well. There have been no syncopal episodes or seizure activity since her admission. At the time of my exam she is resting comfortably in bed and has no new neurological complaints. Objective - Vital Signs Vital signs: Vital Signs Temp 97.4 F L 04/28/17 11:59 Pulse 68 04/28/17 11:59 Resp 18 04/28/17 11:59 BP 119/66 04/28/17 11:59 Pulse Ox 93 L 04/28/17 11:59 Intake & Output 04/27/17 04/28/17 04/28/17 18:59 06:59 18:59 Intake Total 800 Balance 800 Intake: Oral 800 Other: Voiding Method Toilet Toilet Toilet # Voids 1 - Constitutional General appearance: Present: cooperative, no acute distress - EENT Eyes: Present: EOMI, PERRLA. Absent: abnormal pupil, ptosis ENT: Present: hearing grossly normal - Neck Neck: Present: normal ROM. Absent: rigidity - Respiratory Respiratory: negative: prolonged expiration, prolonged inspiration - Cardiovascular Rhythm: regular - Gastrointestinal General gastrointestinal: Absent: distended, tenderness - Neurologic Neurologic Comment(s): The patient is alert awake and oriented 3. Speech and language are normal. There is no facial asymmetry. Strength is 5 out of 5 in bilateral upper and lower extremities. There is no sensory deficit. No tremors or seizures are seen. Cranial nerves II through XII are intact globally. - Labs CBC & Chem 7: 04/26/17 14:20 04/26/17 14:20 Labs: Microbiology - Last 24 Hours (Table) 04/26/17 15:15 Urine Culture - Final Urine,Voided Assessment and Plan (1) Syncope and collapse Current Visit: Yes Status: Acute Code(s): R55 - SYNCOPE AND COLLAPSE SNOMED Code(s): 325717465 (2) Generalized seizure Current Visit: Yes Status: Suspected Code(s): R56.9 - UNSPECIFIED CONVULSIONS SNOMED Code(s): 674283737 (3) Abnormal computed tomography scan Current Visit: Yes Status: Chronic Code(s): R93.8 - ABNORMAL FINDINGS ON DIAGNOSTIC IMAGING OF BODY STRUCTURES SNOMED Code(s): 274998775 (4) Intracranial mass Current Visit: Yes Status: Suspected Code(s): R90.0 - INTCRN SPACE- OCCUPYING LESION FOUND ON DX IMAGING OF CNSL SNOMED Code(s): 50265844 (5) Hypertension Current Visit: Yes Status: Chronic Code(s): I10 - ESSENTIAL (PRIMARY) HYPERTENSION SNOMED Code(s): 78763883 (6) Hypothyroidism Current Visit: Yes Status: Chronic Code(s): E03.9 - HYPOTHYROIDISM, UNSPECIFIED SNOMED Code(s): 63718541 (7) Chronic back pain Current Visit: Yes Status: Chronic Code(s): M54.9 - DORSALGIA, UNSPECIFIED; G89.29 - OTHER CHRONIC PAIN SNOMED Code(s): 788778268 (8) Meningioma Current Visit: Yes Status: Acute Code(s): D32.9 - BENIGN NEOPLASM OF MENINGES, UNSPECIFIED SNOMED Code(s): 718479350 Plan: the patient did suffer a syncopal episode where there was likely some seizure activity. She explains to other episodes of syncope or there was no witnessed seizure activity. Because of this and her CT findings on MRI and MRA were performed. a likely meningioma was found measuring approximately 2.6 x 2.3 x 1.5 cm. There was also an area along the sphenoid bone consistent with an en plaque meningioma. An EEG has also been ordered. she will continue Keppra 500 mg twice a day. Seizure precautions to be taken. Continue neurological checks. Continue cardiology workup as needed.she will need outpatient neurosurgical consultation. We will follow her up in clinic to monitor any seizure activity and response to Keppra. We can arrange a referral to neurosurgery. Otherwise she is cleared from a neurological standpoint to follow up in our office. I have reviewed the history and physical on the above patient. I have reviewed the above note, and agree.
--- NOTE | 2017-04-28 14:51 | P.PN ---
Subjective Progress Note Date: 04/28/17 This is a 66-year-old female with past medical history significant for hypertension and hypothyroidism. We are seeing her in follow-up today from previous consultation for possible syncope. She was started on lopressor 25 mg BID for blood pressure control and synthroid was decreased to 100 mcg daily. Upon exam today she is seen sitting in bed in no acute distress. She denies dizziness, palpitations, chest pain or shortness of breath. Echocardiogram reveals preserved LV function with ejection fraction 55-60% with mild concentric left ventricular hypertrophy, aortic valve is mildly thickened, mild mitral regurgitation, mild tricuspid regurgitation. Blood pressure 117/66 with heart rate of 79. Objective - Vital Signs Vital signs: Vital Signs Temp 97.4 F L 04/28/17 11:59 Pulse 68 04/28/17 11:59 Resp 18 04/28/17 11:59 BP 119/66 04/28/17 11:59 Pulse Ox 93 L 04/28/17 11:59 Intake & Output 04/27/17 04/28/17 04/28/17 18:59 06:59 18:59 Intake Total 800 Balance 800 Intake: Oral 800 Other: Voiding Method Toilet Toilet Toilet # Voids 1 - Exam GENERAL: Well-appearing, well-nourished and in no acute distress. NECK: Supple without JVD or thyromegaly. LUNGS: Breath sounds clear to auscultation bilaterally. Respiration equal and unlabored. No wheezes, rales or rhonchi. HEART: Regular rate and rhythm without murmurs, rubs or gallops. S1 and S2 heard. EXTREMITIES: Normal range of motion, no edema. No clubbing or cyanosis. Peripheral pulses intact and strong. - Labs CBC & Chem 7: 04/26/17 14:20 04/26/17 14:20 Labs: Microbiology - Last 24 Hours (Table) 04/26/17 15:15 Urine Culture - Final Urine,Voided Assessment and Plan Assessment: ASSESSMENT 1. Episode of possible syncope, most likely seizure 2. Hypertension 3. Hypothyroidism PLAN From cardiac standpoint the patient is stable for discharge home on current medication regimen. Her blood pressure and heart rate are tolerating addition of new medication. Echocardiogram is normal. She can follow-up with Dr. OUMOU Kenyon in 2 weeks. Nurse Practitioner note has been reviewed, I agree with a documented findings and plan of care. Patient was seen and examined.
[2017-04-28 15:59] VITALS: BP 107/56; PULSE 62; TEMP 97.2
--- NOTE | 2017-04-28 19:19 | EEG ---
ELECTROENCEPHALOGRAM REPORT DATE OF SERVICE: 04/28/2017. REASON FOR TESTING: Syncope. DESCRIPTION OF THE PROCEDURE: This EEG was performed using a 21 channel digital electroencephalograph, following international 10-20 system. DESCRIPTION OF THE RECORDING: From the beginning of the tracing, and with patient's eyes closed, the background rhythm was mostly consisting of 8 hertz alpha frequency in the posterior occipital leads. No obvious asymmetry is seen. Photic stimulation was performed with a minimal driving response seen. No pathological waves were elicited. Hyperventilation was not performed. Photic stimulation was repeated again and again no pathological waves were elicited. Occasional muscle and movement artifacts are seen. The patient remains awake throughout the tracing. No epileptiform discharges were seen. Her EKG lead showed a regular rate and rhythm. INTERPRETATION: This awake EEG can be considered within normal limits. There is no asymmetry seen. No epileptiform discharges were noticed. The absence of epileptiform discharges does not rule out the diagnosis of epilepsy, therefore clinical correlation is recommended. MMBRO / IJN: [id number] /
--- NOTE | 2017-06-15 10:13 | P.DS ---
Providers Date of admission: 04/26/17 15:34 Attending physician: Adonis Solomon Consults: 04/26/17 15:35 Consult Physician Routine Consulting Provider: Pan Moy Consult Reason/Comments: syncope,mass(h/o) Do you want consulting provider notified?: Yes Consult Physician Routine Consulting Provider: George Machado Consult Reason/Comments: syncope Do you want consulting provider notified?: Yes Primary care physician: Cain Bonilla Hospital Course: Patient was admitted with seizure and syncope activity patient was evaluated by Dr. Moy neurologist increased her Keppra to 500 mg twice a day for seizures MRI of the brain MRA of the brain were consistent with meningiomas which she'll be followed up as an outpatient by Dr. Moy no further syncope was seen in the hospital and she is cleared neurologically to be discharged please see reports in the chart as far as x-ray x-rays CAT scans and MRIs and labs thank you Patient Condition at Discharge: Fair Plan - Discharge Summary Discharge Rx Participant: No New Discharge Prescriptions: No Action Multivitamins, Thera [Multivitamin (formulary)] 1 tab PO DAILY Dicyclomine [Bentyl] 20 mg PO QID PRN PRN Reason: Cholecalciferol (Vitamin D3) [Vitamin D3] 2,000 unit PO DAILY Liothyronine Sodium [Cytomel] 10 mcg PO DAILY Levothyroxine Sodium [Synthroid] 112 mcg PO DAILY DULoxetine HCL [Cymbalta] 60 mg PO DAILY Cetirizine HCl [Zyrtec] 10 mg PO DAILY amLODIPine [Norvasc] 5 mg PO DAILY Pantoprazole Sodium [Protonix] 40 mg PO DAILY Oxybutynin Chloride [Ditropan] 5 mg PO BID Losartan Potassium [Cozaar] 100 mg PO DAILY Baclofen [Lioresal] 10 mg PO BID oxyCODONE-APAP 10-325MG [Percocet 10-325 mg] 1 tab PO Q8H PRN PRN Reason: Pain Meloxicam [Mobic] 15 mg PO DAILY Gabapentin [Neurontin] 600 mg PO Q6H Discharge Medication List Baclofen [Lioresal] 10 mg PO BID 04/26/17 [History] Cetirizine HCl [Zyrtec] 10 mg PO DAILY 04/26/17 [History] Cholecalciferol (Vitamin D3) [Vitamin D3] 2,000 unit PO DAILY 04/26/17 [History] DULoxetine HCL [Cymbalta] 60 mg PO DAILY 04/26/17 [History] Dicyclomine [Bentyl] 20 mg PO QID PRN 04/26/17 [History] Gabapentin [Neurontin] 600 mg PO Q6H 04/26/17 [History] Levothyroxine Sodium [Synthroid] 112 mcg PO DAILY 04/26/17 [History] Liothyronine Sodium [Cytomel] 10 mcg PO DAILY 04/26/17 [History] Losartan Potassium [Cozaar] 100 mg PO DAILY 04/26/17 [History] Meloxicam [Mobic] 15 mg PO DAILY 04/26/17 [History] Multivitamins, Thera [Multivitamin (formulary)] 1 tab PO DAILY 04/26/17 [History ] Oxybutynin Chloride [Ditropan] 5 mg PO BID 04/26/17 [History] Pantoprazole Sodium [Protonix] 40 mg PO DAILY 04/26/17 [History] amLODIPine [Norvasc] 5 mg PO DAILY 04/26/17 [History] oxyCODONE-APAP 10-325MG [Percocet 10-325 mg] 1 tab PO Q8H PRN 04/26/17 [History] Follow up Appointment(s)/Referral(s): Anne Kenyon MD [STAFF PHYSICIAN] - 2 Weeks (Office will call patient with appointment date and time) Pan Moy MD [STAFF PHYSICIAN] - 2 Weeks (Office will call [facility] with appointment date and time) Cain Bonilla MD [Primary Care Provider] - 1-2 days Discharge Disposition: HOME SELF-CARE
== END 2017-04-28 16:50 | disposition home or self-care (01) ==
LOC: EC 14:04 → 3OBS 15:34
PROVIDERS: ADMIT Family Medicine; ATTEND Family Medicine
DX: R55 Syncope and collapse (principal); I10 Essential (primary) hypertension; M54.9 Dorsalgia, unspecified; F41.9 Anxiety disorder, unspecified; R41.0 Disorientation, unspecified; R90.0 Intracranial space-occupying lesion found on diagnostic imaging of central nervous system; I08.1 Rheumatic disorders of both mitral and tricuspid valves; G89.29 Other chronic pain; E03.9 Hypothyroidism, unspecified; Z83.3 Family history of diabetes mellitus; Z79.1 Long term (current) use of non-steroidal anti-inflammatories (NSAID); Z79.899 Other long term (current) drug therapy; Z88.5 Allergy status to narcotic agent; Z88.2 Allergy status to sulfonamides; Z88.8 Allergy status to other drugs, medicaments and biological substances; Z91.048 Other nonmedicinal substance allergy status
CPT/HCPCS: 96374; 99285; 36415; 94760 ×2; 95819; 93005; 93306; 85379; 84439; 80061; 80053; 84443; 82550; 82553; 83735; 84100; 84484 ×2; 85025; 85610; 85730; 81003; 87086; 93880; 70450; 71275; 70544; 70553; G0378 ×3; Q9967; J2405; A9581

== ENCOUNTER → 2017-09-01 | Outpatient (CLI) | payer MEDICARE ==
[2017-09-01 14:37] LABS: ALT 21 U/L (9-52); AST 28 U/L (14-36); Albumin 4.2 g/dL (3.5-5.0); Alkaline Phosphatase 128 U/L (38-126); Anion Gap 9 mmol/L; Bilirubin, Delta 0.4 mg/dL (0.0-0.2); Bilirubin,Unconjugated 0.2 mg/dL (0.0-1.1); Blood Urea Nitrogen 16 mg/dL (7-17); C Reactive Protein 11.5 mg/L (<10.0); Calcium 9.6 mg/dL (8.4-10.2); Carbon Dioxide 34 mmol/L (22-30); Chloride 102 mmol/L (98-107); Cholesterol 166 mg/dL (<200); Glucose 107 mg/dL (74-99); HDL Cholesterol 42 mg/dL (40-60); LDL Cholesterol,Calculated 68 mg/dL (0-99); Sodium 145 mmol/L (137-145); Total Bilirubin 0.6 mg/dL (0.2-1.3); Total Protein 7.1 g/dL (6.3-8.2); Triglycerides 279 mg/dL (<150)
[2017-09-01 14:41] LABS: Potassium 4.3 mmol/L (3.5-5.1)
[2017-09-01 14:46] LABS: T4, Free (Free Thyroxine) 1.05 ng/dL (0.78-2.19)
[2017-09-01 20:07] LABS: Anti-DNA, DS unit <1.0 IU/mL; Cyclic Citrullinated Pep IgG NEGATIVE (NEGATIVE); DNA Double-Stranded NEGATIVE (NEGATIVE)
[2017-09-01 20:08] LABS: RNP 1.1 AI; Scleroderma SC-70 Ab <0.2 AI
[2017-09-02 05:12] LABS: Hemoglobin A1C 5.4 % (4.0-6.0)
[2017-09-02 10:07] LABS: ANA Pattern Speckled
== END | disposition home or self-care (01) ==
LOC: LABWHC1 13:43
PROVIDERS: ATTEND Internal Medicine Endocrinology, Diabetes & Metabolism
DX: E11.65 Type 2 diabetes mellitus with hyperglycemia (principal); E03.9 Hypothyroidism, unspecified; E55.9 Vitamin D deficiency, unspecified; E78.5 Hyperlipidemia, unspecified; M25.50 Pain in unspecified joint
CPT/HCPCS: 36415; 80053; 80061; 82248; 82306; 83036; 83516; 84439; 84443; 85652; 86038; 86039; 86140; 86200; 86225; 86235

== ENCOUNTER 2017-09-17 21:07 | Emergency (ER) | payer MEDICARE ==
[2017-09-17 21:15] VITALS: RESP 18
[2017-09-17] MEDS ORDERED: SODIUM CHLORIDE 0.9% 1,000 ML IV STA (21:20)
[2017-09-17 21:33] LABS: Glucose,Whole Blood 101 mg/dL (75-99)
[2017-09-17 21:46] LABS: Basophils # (A) 0.1 k/uL (0-0.2); Basophils % (A) 1 %; Eosinophils # (A) 0.3 k/uL (0-0.7); Eosinophils % (A) 4 %; HCT 42.3 % (34.0-46.0); HGB 13.8 gm/dL (11.4-16.0); Lymphocytes # (A) 1.8 k/uL (1.0-4.8); Lymphocytes % (A) 24 %; MCH 28.3 pg (25.0-35.0); MCHC 32.7 g/dL (31.0-37.0); MCV 86.4 fL (80.0-100.0); Mean Platelet Volume 7.8; Monocytes # (A) 0.5 k/uL (0-1.0); Monocytes % (A) 7 %; Neutrophils # (A) 4.7 k/uL (1.3-7.7); Neutrophils % (A) 62 %; Platelet Count 273 k/uL (150-450); RBC 4.89 m/uL (3.80-5.40); RDW 14.1 % (11.5-15.5); WBC 7.5 k/uL (3.8-10.6)
[2017-09-17 21:55] LABS: ALT 37 U/L (9-52); AST 42 U/L (14-36); Albumin 4.3 g/dL (3.5-5.0); Alkaline Phosphatase 137 U/L (38-126); Anion Gap 9 mmol/L; Blood Urea Nitrogen 19 mg/dL (7-17); Calcium 9.5 mg/dL (8.4-10.2); Carbon Dioxide 29 mmol/L (22-30); Chloride 104 mmol/L (98-107); Glucose 106 mg/dL (74-99); Magnesium 1.6 mg/dL (1.6-2.3); Sodium 142 mmol/L (137-145); Total Bilirubin 0.6 mg/dL (0.2-1.3)
[2017-09-17 21:56] LABS: Partial Thromboplastin Time 22.9 sec (22.0-30.0); Prothrombin Time 10.3 sec (9.0-12.0)
--- NOTE | 2017-09-17 22:10 | CT ---
EXAMINATION TYPE: CT brain diana wo con DATE OF EXAM: 09/17/2017 COMPARISON: NONE HISTORY: Seizure and syncope. CT DLP: 1493 mGycm Automated exposure control for dose reduction was used. TECHNIQUE: CT scan of the head and cervical spine are performed without contrast. FINDINGS: Ventricles of normal size. There is no mass effect nor midline shift. There is no sign of intracranial hemorrhage. There is a calcified 1.5 cm mass at the anterior aspect of the sella turcic a. This is probably arising from the tuberculum sella. The calvarium is intact. The cervical vertebra show anterior subluxation of C6 in relation to C7 of 5 mm. There is moderate na rrowing of disc spaces from C3 to C7. There is no compression fracture. Posterior elements are intact . There is some facet arthropathy in the lower cervical spine. Skull base is intact. There is calcifi ed posterior disc herniation at C5-6. There is 5 mm spinal stenosis at C5-6. IMPRESSION: Calcified mass at the tuberculum sella consistent with a meningioma that is unchanged compared to old exam. No acute intracranial abnormality. Moderate spondylotic changes in the cervical spine. C5-6 spinal stenosis that measures 5 mm. No fract ure seen. Degenerative subluxation at C6-7.
[2017-09-17 22:17] LABS: Creatine Kinase 55 U/L (30-135)
[2017-09-17] MEDS ORDERED: levETIRAcetam IV 1,000 MG in SALINE 1 100ML.BAG IVPB STA (22:18)
--- NOTE | 2017-09-17 22:19 | ED ---
General Adult HPI - General Chief complaint: Syncope Stated complaint: Seizure-Head Injury Time Seen by Provider: 09/17/17 21:20 Source: patient, family, RN notes reviewed, old records reviewed Mode of arrival: ambulatory Limitations: no limitations - History of Present Illness Initial comments: This is a 66-year-old female the ER for evaluation of syncope. Patient is newly recent diagnosed seizures. And this is just prior to discharge similar to her prior similars episode when she had a seizure. Patient denies headache no chest pain or shortness of breath. No headache chest pain or shortness of breath prior to event. Patient states she did hit her head so currently she does have some a mild headache where she did hit her head. She denies any recent nausea vomiting or diarrhea she states she is taking all medications as prescribed. Patient's is at bedside he did witness the event. Patient did not bite her tongue and not urinate her pants. - Related Data Home Medications Medication Instructions Recorded Confirmed Baclofen [Lioresal] 10 mg PO BID 04/26/17 09/17/17 Cetirizine HCl [Zyrtec] 10 mg PO DAILY 04/26/17 09/17/17 Cholecalciferol (Vitamin D3) 2,000 unit PO DAILY 04/26/17 09/17/17 [Vitamin D3] DULoxetine HCL [Cymbalta] 60 mg PO DAILY 04/26/17 09/17/17 Dicyclomine [Bentyl] 20 mg PO QID PRN 04/26/17 09/17/17 Gabapentin [Neurontin] 600 mg PO Q6H 04/26/17 09/17/17 Liothyronine Sodium [Cytomel] 10 mcg PO DAILY 04/26/17 09/17/17 Losartan Potassium [Cozaar] 100 mg PO DAILY 04/26/17 09/17/17 Multivitamins, Thera [Multivitamin 1 tab PO DAILY 04/26/17 09/17/17 (formulary)] Oxybutynin Chloride [Ditropan] 5 mg PO BID 04/26/17 09/17/17 Pantoprazole Sodium [Protonix] 40 mg PO DAILY 04/26/17 09/17/17 amLODIPine [Norvasc] 5 mg PO DAILY 04/26/17 09/17/17 oxyCODONE-APAP 10-325MG [Percocet 1 tab PO Q8H PRN 04/26/17 09/17/17 10-325 mg] Levothyroxine Sodium [Synthroid] 100 mcg PO DAILY 09/17/17 09/17/17 Metoprolol Tartrate [Lopressor] 25 mg PO DAILY 09/17/17 09/17/17 Naproxen 500 mg PO BID 09/17/17 09/17/17 levETIRAcetam [Keppra] 500 mg PO BID 09/17/17 09/17/17 Allergies Allergy/AdvReac Type Severity Reaction Status Date / Time adhesive tape Allergy Rash/Hives Verified 09/17/17 22:26 hydrocodone [From Vicodin] Allergy Rash/Hives Verified 09/17/17 22:26 metaxalone [From Skelaxin] Allergy Rash/Hives Verified 09/17/17 22:26 methocarbamol [From Robaxin] Allergy Rash/Hives Verified 09/17/17 22:26 Sulfa (Sulfonamide Allergy Rash/Hives Verified 09/17/17 22:26 Antibiotics) Review of Systems ROS Statement: Those systems with pertinent positive or pertinent negative responses have been documented in the HPI. ROS Other: All systems not noted in ROS Statement are negative. 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, back pain History of Any Multi-Drug Resistant Organisms: None Reported Past Surgical History: Back Surgery, Cholecystectomy, Joint Replacement, Orthopedic Surgery Additional Past Surgical History / Comment(s): left knee and left hip replacement, right wrist surgery, bilateral carpal tunnel release Past Anesthesia/Blood Transfusion Reactions: No Reported Reaction Past Psychological History: Anxiety Smoking Status: Never smoker Past Alcohol Use History: None Reported Past Drug Use History: None Reported - Past Family History Mother Family Medical History: Cancer Additional Family Medical History / Comment(s): from cervial CA Father Family Medical History: Diabetes Mellitus Additional Family Medical History / Comment(s): from DM complications General Exam Limitations: no limitations Course Vital Signs 09/17/17 09/17/17 21:08 22:31 Temperature 98.7 F Pulse Rate 90 74 Respiratory 18 18 Rate Blood Pressure 176/76 142/63 O2 Sat by Pulse 94 L 96 Oximetry - Reevaluation(s) Reevaluation #1: 09/17/17 22:37 Patient fell seizure-like activity here in the ER, no syncopal activity no headache chest pain shortness of breath Medical Decision Making - Medical Decision Making 66 female the ER for evaluation secondary or seizure. History of seizure. CT brain is negative for traumatic injury. Patient has no activity seizure-like here in the hospital. Patient will be discharged home - Lab Data Result diagrams: 09/17/17 21:28 09/17/17 21:28 Lab Results 09/17/17 09/17/17 09/17/17 Range/Units 21:25 21:28 21:28 WBC 7.5 (3.8-10.6) k/uL RBC 4.89 (3.80-5.40) m/uL Hgb 13.8 (11.4-16.0) gm/dL Hct 42.3 (34.0-46.0) % MCV 86.4 (80.0-100.0) fL MCH 28.3 (25.0-35.0) pg MCHC 32.7 (31.0-37.0) g/dL RDW 14.1 (11.5-15.5) % Plt Count 273 (150-450) k/uL Neutrophils % 62 % Lymphocytes % 24 % Monocytes % 7 % Eosinophils % 4 % Basophils % 1 % Neutrophils # 4.7 (1.3-7.7) k/uL Lymphocytes # 1.8 (1.0-4.8) k/uL Monocytes # 0.5 (0-1.0) k/uL Eosinophils # 0.3 (0-0.7) k/uL Basophils # 0.1 (0-0.2) k/uL PT (9.0-12.0) sec INR (<1.2) APTT (22.0-30.0) sec Sodium (137-145) mmol/L Potassium (3.5-5.1) mmol/L Chloride (98-107) mmol/L Carbon Dioxide (22-30) mmol/L Anion Gap mmol/L BUN (7-17) mg/dL Creatinine (0.52-1.04) mg/dL Est GFR (CKD-EPI)AfAm (>60 ml/min/1.73 sqM) Est GFR (CKD-EPI)NonAf (>60 ml/min/1.73 sqM) Glucose (74-99) mg/dL POC Glucose (mg/dL) 101 H (75-99) mg/dL POC Glu Fine Craft Artist ID Diomedes [place] Calcium (8.4-10.2) mg/dL Magnesium (1.6-2.3) mg/dL Total Bilirubin (0.2-1.3) mg/dL AST (14-36) U/L ALT (9-52) U/L Alkaline Phosphatase (38-126) U/L Total Creatine Kinase 55 (30-135) U/L CK-MB (CK-2) 0.8 (0.0-2.4) ng/mL CK-MB (CK-2) Rel Index 1.5 Troponin I <0.012 (0.000-0.034) ng/mL Total Protein (6.3-8.2) g/dL Albumin (3.5-5.0) g/dL Urine Color Urine Appearance (Clear) Urine pH (5.0-8.0) Ur Specific [place] (1.001-1.035) Urine Protein (Negative) Urine Glucose (UA) (Negative) Urine Ketones (Negative) Urine Blood (Negative) Urine Nitrite (Negative) Urine Bilirubin (Negative) Urine Urobilinogen (<2.0) mg/dL Ur Leukocyte Esterase (Negative) Urine RBC (0-5) /hpf Urine WBC (0-5) /hpf Ur Squamous Epith Cells (0-4) /hpf Urine Bacteria (None) /hpf Urine Mucus (None) /hpf 09/17/17 09/17/17 09/17/17 Range/Units 21:28 21:28 22:17 WBC (3.8-10.6) k/uL RBC (3.80-5.40) m/uL Hgb (11.4-16.0) gm/dL Hct (34.0-46.0) % MCV (80.0-100.0) fL MCH (25.0-35.0) pg MCHC (31.0-37.0) g/dL RDW (11.5-15.5) % Plt Count (150-450) k/uL Neutrophils % % Lymphocytes % % Monocytes % % Eosinophils % % Basophils % % Neutrophils # (1.3-7.7) k/uL Lymphocytes # (1.0-4.8) k/uL Monocytes # (0-1.0) k/uL Eosinophils # (0-0.7) k/uL Basophils # (0-0.2) k/uL PT 10.3 (9.0-12.0) sec INR 1.0 (<1.2) APTT 22.9 (22.0-30.0) sec Sodium 142 (137-145) mmol/L Potassium 4.0 (3.5-5.1) mmol/L Chloride 104 (98-107) mmol/L Carbon Dioxide 29 (22-30) mmol/L Anion Gap 9 mmol/L BUN 19 H (7-17) mg/dL Creatinine 0.67 (0.52-1.04) mg/dL Est GFR (CKD-EPI)AfAm >90 (>60 ml/min/1.73 sqM) Est GFR (CKD-EPI)NonAf >90 (>60 ml/min/1.73 sqM) Glucose 106 H (74-99) mg/dL POC Glucose (mg/dL) (75-99) mg/dL POC Glu Fine Craft Artist ID Calcium 9.5 (8.4-10.2) mg/dL Magnesium 1.6 (1.6-2.3) mg/dL Total Bilirubin 0.6 (0.2-1.3) mg/dL AST 42 H (14-36) U/L ALT 37 (9-52) U/L Alkaline Phosphatase 137 H (38-126) U/L Total Creatine Kinase (30-135) U/L CK-MB (CK-2) (0.0-2.4) ng/mL CK-MB (CK-2) Rel Index Troponin I (0.000-0.034) ng/mL Total Protein 7.0 (6.3-8.2) g/dL Albumin 4.3 (3.5-5.0) g/dL Urine Color Yellow Urine Appearance Cloudy H (Clear) Urine pH 5.5 (5.0-8.0) Ur Specific [place] 1.020 (1.001-1.035) Urine Protein Trace H (Negative) Urine Glucose (UA) Negative (Negative) Urine Ketones Negative (Negative) Urine Blood Negative (Negative) Urine Nitrite Negative (Negative) Urine Bilirubin Negative (Negative) Urine Urobilinogen 2.0 (<2.0) mg/dL Ur Leukocyte Esterase Trace H (Negative) Urine RBC 1 (0-5) /hpf Urine WBC 2 (0-5) /hpf Ur Squamous Epith Cells 7 H (0-4) /hpf Urine Bacteria Occasional H (None) /hpf Urine Mucus Rare H (None) /hpf - Radiology Data Radiology results: report reviewed (CT brain is negative for acute disease), image reviewed Disposition Clinical Impression: Syncope and collapse, Seizure, Recurrent seizures Disposition: HOME SELF-CARE Condition: Good Instructions: Recurrent Seizures in Adults (ED) Referrals: aCin Bonilla MD [Primary Care Provider] - 1-2 days
[2017-09-17 22:30] LABS: Creatine Kinase MB 0.8 ng/mL (0.0-2.4); Troponin I <0.012 ng/mL (0.000-0.034)
[2017-09-17 22:32] LABS: Appearance,Urine Cloudy (Clear); Bacteria,Urine Occasional /hpf; Bilirubin,Urine Negative (Negative); Blood,Urine Negative (Negative); Color,Urine Yellow; Glucose,Urine (UA) Negative (Negative); Ketones,Urine Negative (Negative); Leukocyte Esterase,Urine Trace (Negative); Mucus,Urine Rare /hpf; Nitrite,Urine Negative (Negative); PH, Urine 5.5 (5.0-8.0); Protein,Urine Trace (Negative); RBC,Urine 1 /hpf (0-5); Squamous Epithelial Cell,Urine 7 /hpf (0-4); WBC,Urine 2 /hpf (0-5)
[2017-09-17 23:41] VITALS: BP 125/69; PULSE 73; TEMP 97.6
== END 2017-09-17 23:41 | disposition home or self-care (01) ==
LOC: EC 21:07 → SUPCPDRO 21:07 → EC 23:41
DX: G40.909 Epilepsy, unspecified, not intractable, without status epilepticus (principal); R51 Headache; I10 Essential (primary) hypertension; F41.9 Anxiety disorder, unspecified; Z79.1 Long term (current) use of non-steroidal anti-inflammatories (NSAID); Z79.899 Other long term (current) drug therapy; Z88.2 Allergy status to sulfonamides; Z88.5 Allergy status to narcotic agent; Z88.8 Allergy status to other drugs, medicaments and biological substances; Z91.048 Other nonmedicinal substance allergy status; Z87.39 Personal history of other diseases of the musculoskeletal system and connective tissue; W22.8XXA Striking against or struck by other objects, initial encounter
CPT/HCPCS: 99285; 96374; 96361; 36415; 93005; 80053; 80177; 82550; 82553; 83735; 84484; 85025; 85610; 85730; 81001; 72125; 70450; J1953

== ENCOUNTER → 2017-11-10 | Day surgery (SDC) | payer MEDICARE ==
[2017-11-05 16:15] VITALS: BMI 36.6
[~2017-11-10] MED LIST: SODIUM CHLORIDE 0.9% 1,000 ML IV SCH
[2017-11-10 07:47] VITALS: RESP 18; TEMP 97.8
[2017-11-10 07:48] VITALS: PULSE 58
[2017-11-10 10:38] VITALS: BP 162/85
--- NOTE | 2017-11-10 16:49 | P.PCN ---
Preoperative Diagnosis: Diagnosis Recurrent syncope Twelve-lead ECG Sinus rhythm normal WA right bundle branch block, LVH normal QT interval Tilt table test for protocol Baseline blood pressure 161/92 mmHg Baseline heart rate 64 beats a minute patient was tilted upright at an angle of 70 per protocol. There was no evidence for neurocardiogenic syncope heart rate and blood pressure remained stable Impression Elevated blood pressures at baseline No evidence for neurocardiogenic syncope or dysautonomia
== END ==
LOC: CATHEP 06:59
PROVIDERS: ATTEND Internal Medicine Clinical Cardiac Electrophysiology
DX: R55 Syncope and collapse (principal); R00.1 Bradycardia, unspecified; I51.7 Cardiomegaly; I10 Essential (primary) hypertension
CPT/HCPCS: 93660

== ENCOUNTER → 2017-11-27 | Outpatient (CLI) | payer MEDICARE | END | disposition home or self-care (01) | LOC: LABWHC1 13:31 | PROVIDERS: ATTEND Psychiatry & Neurology Neurology | DX: Z53.9 Procedure and treatment not carried out, unspecified reason (principal) ==

== ENCOUNTER → 2017-11-28 | Outpatient (CLI) | payer MEDICARE ==
[2017-11-28 10:26] LABS: HCT 45.7 % (34.0-46.0); HGB 14.8 gm/dL (11.4-16.0); MCH 28.5 pg (25.0-35.0); MCHC 32.5 g/dL (31.0-37.0); MCV 87.9 fL (80.0-100.0); Mean Platelet Volume 7.2; Platelet Count 303 k/uL (150-450); RDW 13.3 % (11.5-15.5); WBC 6.4 k/uL (3.8-10.6)
[2017-11-28 11:25] LABS: ALT 38 U/L (9-52); AST 40 U/L (14-36); Albumin 4.2 g/dL (3.5-5.0); Alkaline Phosphatase 139 U/L (38-126); Anion Gap 13 mmol/L; Blood Urea Nitrogen 19 mg/dL (7-17); C Reactive Protein 12.6 mg/L (<10.0); Calcium 9.6 mg/dL (8.4-10.2); Carbon Dioxide 31 mmol/L (22-30); Chloride 101 mmol/L (98-107); Creatine Kinase 37 U/L (30-135); Glucose 108 mg/dL (74-99); Magnesium 2.1 mg/dL (1.6-2.3); Potassium 4.2 mmol/L (3.5-5.1); Sodium 145 mmol/L (137-145); Total Bilirubin 0.9 mg/dL (0.2-1.3); Total Protein 6.8 g/dL (6.3-8.2)
[2017-11-28 12:11] LABS: Erythrocyte Sedimentation Rate 7 mm/hr (0-20)
[2017-11-28 15:08] LABS: Appearance,Urine Clear (Clear); Bilirubin,Urine 2+ (Negative); Blood,Urine Negative (Negative); Color,Urine Light Yellow; Glucose,Urine (UA) Negative (Negative); Ketones,Urine Negative (Negative); Leukocyte Esterase,Urine Negative (Negative); Nitrite,Urine Negative (Negative); Protein,Urine Negative (Negative); Specific Gravity,Urine 1.005 (1.001-1.035); Urobilinogen,Urine <2.0 mg/dL (<2.0)
[2017-11-28 17:28] LABS: Anti-DNA, DS unit <1.0 IU/mL; Cyclic Citrullinated Pep IgG NEGATIVE (NEGATIVE); DNA Double-Stranded NEGATIVE (NEGATIVE); RNP 0.7 AI; Scleroderma SC-70 Ab <0.2 AI
[2017-12-01 13:29] LABS: Vitamin K 0.77 nmol/L (0.22-4.88)
[2017-12-01 15:45] LABS: Histone Antibody 0.6 UNITS (<1.0)
== END | disposition home or self-care (01) ==
LOC: LABWHC1 09:23
PROVIDERS: ATTEND Psychiatry & Neurology Pain Medicine
DX: M25.50 Pain in unspecified joint (principal); G89.4 Chronic pain syndrome; Z79.899 Other long term (current) drug therapy
CPT/HCPCS: 36415; 80053; 81003; 82550; 83516; 83519; 83735; 84207; 84425; 84446; 84590; 84591; 84597; 85027; 85652; 86038; 86140; 86200; 86225; 86235

== ENCOUNTER → 2018-04-27 | Outpatient (CLI) | payer MEDICARE ==
[2018-04-27 20:05] LABS: Albumin/Globulin Ratio 2.11 (1.20-2.10); Anion Gap 6.6 mmol/L (4.00-12.00); Calcium 8.9 mg/dL (8.7-10.3); Carbon Dioxide 29.4 mmol/L (21.6-31.8); Globulin 1.9 g/dL (2.1-3.7); Potassium 4.7 mmol/L (3.5-5.5); Total Bilirubin 0.3 mg/dL (0.2-1.2); Total Protein 5.9 g/dL (6.2-8.2)
[2018-04-27 20:12] LABS: T4, Free (Free Thyroxine) 1.2 ng/dL (0.80-1.80)
[2018-04-27 20:25] LABS: Iron Saturation 15.79 (12.00-45.00)
[2018-04-27 20:32] LABS: Vitamin D 25 Hydroxy 20.6 ng/mL (30.0-100.0)
[2018-04-27 20:45] LABS: Folate, Serum 12.7 ng/mL
[2018-04-27 22:28] LABS: Hemoglobin A1C 5.6 % (4.0-6.0)
[2018-04-29 03:43] LABS: Vitamin B1 83 ug/L (38-122)
== END ==
LOC: LABWHC1 13:46
PROVIDERS: ATTEND Internal Medicine Endocrinology, Diabetes & Metabolism
DX: E03.9 Hypothyroidism, unspecified (principal); E11.65 Type 2 diabetes mellitus with hyperglycemia; E55.9 Vitamin D deficiency, unspecified; D64.9 Anemia, unspecified; R53.83 Other fatigue
CPT/HCPCS: 36415; 80053; 82306; 82607; 82728; 82746; 83036; 83540; 83550; 84207; 84425; 84439; 84443; 84466; 84591

== ENCOUNTER → 2018-04-30 | Outpatient (CLI) | payer MEDICARE ==
--- NOTE | 2018-04-30 23:29 | MR ---
EXAMINATION TYPE: MR cervical spine wo con DATE OF EXAM: 04/30/2018 COMPARISON: None HISTORY: Neck pain, headaches, BUE weakness TECHNIQUE: Multiplanar, multisequence images of the cervical spine were acquired. Cervical vertebra show some straightening. There is slight kyphotic curvature at the C4 level. There is moderate spurring of the endplates and facet arthropathy. There is resultant multilevel cervical b swathi spinal stenosis. The spinal canal measures only 4 mm at the C5-6 level. The canal measures 5 mm a t C4-5 and 6 mm at C3-4. Cervical spinal cord however does not show any significant edema. The brains tem is intact. There is no compression fracture. There is small posterior T1-T2 disc herniation witho ut significant impingement on the spinal cord. IMPRESSION: Moderate multilevel spondylosis. Moderately severe multilevel cervical bony spinal stenosis that is m ost severe at C5-6.
== END | disposition home or self-care (01) ==
LOC: RADMRIMAIN 21:11
PROVIDERS: ATTEND Psychiatry & Neurology Pain Medicine
DX: M48.02 Spinal stenosis, cervical region (principal); M47.816 Spondylosis without myelopathy or radiculopathy, lumbar region
CPT/HCPCS: 72141

== ENCOUNTER 2018-05-15 15:59 | Inpatient (IN) | payer MEDICARE ==
[2018-05-15] MEDS ORDERED: SODIUM CHLORIDE 0.9% 1,000 ML IV STA (17:30)
--- NOTE | 2018-05-15 17:39 | ED ---
General Adult HPI - General Chief complaint: Seizure Stated complaint: having seizures everyday Time Seen by Provider: 05/15/18 17:15 Source: patient, RN notes reviewed Mode of arrival: wheelchair Limitations: no limitations - History of Present Illness Initial comments: 67-year-old female with a past medical history of seizure disorder, hypertension presents to the emergency department for a chief complaint of possible change in baseline of seizures. Patient states she was diagnosed with seizures last May and started on Keppra by Dr. Moy. Patient states that 1 month ago she started to have an increase in seizures and Dr. Moy increased her Keppra from 1000 mg to 1500 mg twice a day. Patient states she is now experiencing seizures every day. She states she last had a seizure about 4 hours ago. She states she was outside when she a lot and fell on her bottom. She denies hitting her head and states her boyfriend saw her fall and he said she did not hit her head. Patient denies any loss of bladder or bowel function. She denies biting her tongue. Patient states she almost threw up afterwards. She denies any injuries.Patient has no other complaints at this time including shortness of breath, chest pain, abdominal pain, nausea or vomiting, headache, or visual changes. - Related Data Home Medications Medication Instructions Recorded Confirmed Baclofen [Lioresal] 10 mg PO BID 04/26/17 05/15/18 Cetirizine HCl [Zyrtec] 10 mg PO DAILY 04/26/17 05/15/18 DULoxetine HCL [Cymbalta] 60 mg PO DAILY 04/26/17 05/15/18 Gabapentin [Neurontin] 600 mg PO Q6H 04/26/17 05/15/18 Liothyronine Sodium [Cytomel] 10 mcg PO [id number] 04/26/17 05/15/18 Losartan Potassium [Cozaar] 100 mg PO DAILY 04/26/17 05/15/18 Multivitamins, Thera [Multivitamin 1 tab PO DAILY 04/26/17 05/15/18 (formulary)] Oxybutynin Chloride [Ditropan] 5 mg PO BID 04/26/17 05/15/18 Pantoprazole Sodium [Protonix] 40 mg PO DAILY 04/26/17 05/15/18 amLODIPine [Norvasc] 5 mg PO DAILY 04/26/17 05/15/18 oxyCODONE-APAP 10-325MG [Percocet 1 tab PO Q8H PRN 04/26/17 05/15/18 10-325 mg] Metoprolol Tartrate [Lopressor] 25 mg PO BID 09/17/17 05/15/18 levETIRAcetam [Keppra] 500 mg PO BID 09/17/17 05/15/18 Ergocalciferol [Vitamin D2] 50,000 unit PO WE 05/15/18 05/15/18 Etodolac [Lodine] 300 mg PO BID 05/15/18 05/15/18 Levothyroxine Sodium [Synthroid] 112 mcg PO DAILY 05/15/18 05/15/18 levETIRAcetam [Keppra] 1,000 mg PO BID 05/15/18 05/15/18 Allergies Allergy/AdvReac Type Severity Reaction Status Date / Time adhesive tape Allergy Rash/Hives Verified 05/15/18 19:29 hydrocodone [From Vicodin] Allergy Rash/Hives Verified 05/15/18 19:29 metaxalone [From Skelaxin] Allergy Rash/Hives Verified 05/15/18 19:29 methocarbamol [From Robaxin] Allergy Rash/Hives Verified 05/15/18 19:29 Sulfa (Sulfonamide Allergy Rash/Hives Verified 05/15/18 19:29 Antibiotics) Review of Systems ROS Statement: Those systems with pertinent positive or pertinent negative responses have been documented in the HPI. ROS Other: All systems not noted in ROS Statement are negative. 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, back pain History of Any Multi-Drug Resistant Organisms: None Reported Past Surgical History: Back Surgery, Cholecystectomy, Joint Replacement, Orthopedic Surgery Additional Past Surgical History / Comment(s): left knee and left hip replacement, right wrist surgery, bilateral carpal tunnel release Past Anesthesia/Blood Transfusion Reactions: No Reported Reaction Past Psychological History: Anxiety Smoking Status: Never smoker Past Alcohol Use History: None Reported Past Drug Use History: None Reported - Past Family History Mother Family Medical History: Cancer Additional Family Medical History / Comment(s): from [facility] Father Family Medical History: Diabetes Mellitus Additional Family Medical History / Comment(s): from DM complications General Exam Limitations: no limitations General appearance: alert, in no apparent distress Head exam: Present: atraumatic, normocephalic, normal inspection Eye exam: Present: normal appearance, PERRL, EOMI. Absent: scleral icterus, conjunctival injection, nystagmus, periorbital swelling ENT exam: Present: normal exam, normal oropharynx (Uvula midline), mucous membranes moist, TM's normal bilaterally, normal external ear exam Neck exam: Present: normal inspection, full ROM. Absent: tenderness, meningismus, lymphadenopathy Respiratory exam: Present: normal lung sounds bilaterally. Absent: respiratory distress, wheezes, rales, rhonchi, stridor Cardiovascular Exam: Present: regular rate, normal rhythm, normal heart sounds. Absent: systolic murmur, diastolic murmur, rubs, gallop, clicks GI/Abdominal exam: Present: soft, normal bowel sounds. Absent: distended, tenderness, guarding, rebound, rigid Neurological exam: Present: alert, oriented X3, CN II-XII intact Expanded Patient oriented to: Present: person, place, time Speech: Present: fluid speech Cranial nerves: EOM's Intact: Normal, Tongue Deviation: Normal, Nystagmus: Normal Cerebellar function: Finger to Nose: Normal Upper motor neuron: Pronator Drift: Normal Sensory exam: Upper Extremity Light Touch: Normal, Upper Extremity Pin Prick: Normal, Lower Extremity Light Touch: Normal, Lower Extremity Pin Prick: Normal Motor strength exam: RUE: 5, LUE: 5, RLE: 5, LLE: 5 Eye Response: (4) open spontaneously Motor Response: (6) obeys commands Verbal Response: (5) oriented Caroline Total: 15 Psychiatric exam: Present: normal affect, normal mood Course Vital Signs 05/15/18 05/15/18 05/15/18 16:32 19:00 19:16 Temperature 98.8 F 98.4 F Pulse Rate 65 45 L Pulse Rate [ Pulse Oximetery ] Respiratory 16 18 Rate Blood Pressure 183/79 165/90 189/73 Blood Pressure [Right Arm] O2 Sat by Pulse 96 98 Oximetry 05/16/18 05/16/18 05/16/18 00:10 02:26 03:00 Temperature 98.4 F 98.1 F Pulse Rate 48 L Pulse Rate [ 44 L Pulse Oximetery ] Respiratory 17 18 16 Rate Blood Pressure 172/59 Blood Pressure 170/82 [Right Arm] O2 Sat by Pulse 96 99 Oximetry EKG Findings - EKG Comments: EKG Findings:: Sinus bradycardia, ventricular rate 45, VT interval 156, QRS duration 124, right bundle-branch Medical Decision Making - Medical Decision Making 67-year-old female presents to the emergency department for chief complaint of change in baseline of seizures. Patient has a history of seizure disorder as well as hypertension. She states that she was also seizures last May and started on Keppra. She states that over the past 3 weeks seizures have increased to about once every day. She states the last one was earlier today. She denies bladder or bowel function loss or biting her tongue. She denies hitting her head. Exam is relatively unremarkable. No focal neuro deficits. Patient is alert and oriented and is well-appearing.CBC and CMP are unremarkable. Troponin less than 0.012. Serum alcohol negative urine does not show any evidence of infection. CT brain shows a large partly calcified mass in the midline anterior turcica that is unchanged compared old exam, no acute intracranial abnormality. C-spine shows moderate multilevel spondylitic changes that appear stable. Patient has been evaluated for both seizures and syncope in the past. These are likely near syncopal events that are occurring. Patient is also bradycardic in the 40s in the emergency department. Patient will be admitted with consults to cardiology and neurology. - Lab Data Result diagrams: 05/15/18 17:30 05/15/18 17:30 Lab Results 05/15/18 05/15/18 05/15/18 Range/Units 17:30 17:30 17:30 WBC 6.8 (3.8-10.6) k/uL RBC 4.92 (3.80-5.40) m/uL Hgb 14.2 (11.4-16.0) gm/dL Hct 42.9 (34.0-46.0) % MCV 87.2 (80.0-100.0) fL MCH 28.8 (25.0-35.0) pg MCHC 33.0 (31.0-37.0) g/dL RDW 13.7 (11.5-15.5) % Plt Count 251 (150-450) k/uL Neutrophils % 64 % Lymphocytes % 22 % Monocytes % 7 % Eosinophils % 4 % Basophils % 1 % Neutrophils # 4.3 (1.3-7.7) k/uL Lymphocytes # 1.5 (1.0-4.8) k/uL Monocytes # 0.5 (0-1.0) k/uL Eosinophils # 0.3 (0-0.7) k/uL Basophils # 0.1 (0-0.2) k/uL PT (9.0-12.0) sec INR (<1.2) APTT (22.0-30.0) sec Sodium 140 (137-145) mmol/L Potassium 4.5 (3.5-5.1) mmol/L Chloride 104 (98-107) mmol/L Carbon Dioxide 29 (22-30) mmol/L Anion Gap 7 mmol/L BUN 18 H (7-17) mg/dL Creatinine 0.61 (0.52-1.04) mg/dL Est GFR (CKD-EPI)AfAm >90 (>60 ml/min/1.73 sqM) Est GFR (CKD-EPI)NonAf >90 (>60 ml/min/1.73 sqM) Glucose 110 H (74-99) mg/dL Plasma Lactic Acid Calos (0.7-2.0) mmol/L Calcium 9.6 (8.4-10.2) mg/dL Magnesium 2.1 (1.6-2.3) mg/dL Total Bilirubin 1.0 (0.2-1.3) mg/dL AST 75 H (14-36) U/L ALT 81 H (9-52) U/L Alkaline Phosphatase 207 H (38-126) U/L Total Creatine Kinase (30-135) U/L CK-MB (CK-2) (0.0-2.4) ng/mL CK-MB (CK-2) Rel Index Troponin I (0.000-0.034) ng/mL Total Protein 7.1 (6.3-8.2) g/dL Albumin 4.2 (3.5-5.0) g/dL Urine Color Yellow Urine Appearance Clear (Clear) Urine pH 6.5 (5.0-8.0) Ur Specific [place] 1.008 (1.001-1.035) Urine Protein Negative (Negative) Urine Glucose (UA) Negative (Negative) Urine Ketones Negative (Negative) Urine Blood Negative (Negative) Urine Nitrite Negative (Negative) Urine Bilirubin 1+ H (Negative) Urine Urobilinogen 3.0 (<2.0) mg/dL Ur Leukocyte Esterase Negative (Negative) Serum Alcohol <10 mg/dL 05/15/18 05/15/18 05/15/18 Range/Units 17:30 17:30 17:30 WBC (3.8-10.6) k/uL RBC (3.80-5.40) m/uL Hgb (11.4-16.0) gm/dL Hct (34.0-46.0) % MCV (80.0-100.0) fL MCH (25.0-35.0) pg MCHC (31.0-37.0) g/dL RDW (11.5-15.5) % Plt Count (150-450) k/uL Neutrophils % % Lymphocytes % % Monocytes % % Eosinophils % % Basophils % % Neutrophils # (1.3-7.7) k/uL Lymphocytes # (1.0-4.8) k/uL Monocytes # (0-1.0) k/uL Eosinophils # (0-0.7) k/uL Basophils # (0-0.2) k/uL PT 9.9 (9.0-12.0) sec INR 1.0 (<1.2) APTT 22.8 (22.0-30.0) sec Sodium (137-145) mmol/L Potassium (3.5-5.1) mmol/L Chloride (98-107) mmol/L Carbon Dioxide (22-30) mmol/L Anion Gap mmol/L BUN (7-17) mg/dL Creatinine (0.52-1.04) mg/dL Est GFR (CKD-EPI)AfAm (>60 ml/min/1.73 sqM) Est GFR (CKD-EPI)NonAf (>60 ml/min/1.73 sqM) Glucose (74-99) mg/dL Plasma Lactic Acid [place] 1.3 (0.7-2.0) mmol/L Calcium (8.4-10.2) mg/dL Magnesium (1.6-2.3) mg/dL Total Bilirubin (0.2-1.3) mg/dL AST (14-36) U/L ALT (9-52) U/L Alkaline Phosphatase (38-126) U/L Total Creatine Kinase 40 (30-135) U/L CK-MB (CK-2) 0.4 (0.0-2.4) ng/mL CK-MB (CK-2) Rel Index 1.0 Troponin I <0.012 (0.000-0.034) ng/mL Total Protein (6.3-8.2) g/dL Albumin (3.5-5.0) g/dL Urine Color Urine Appearance (Clear) Urine pH (5.0-8.0) Ur Specific [place] (1.001-1.035) Urine Protein (Negative) Urine Glucose (UA) (Negative) Urine Ketones (Negative) Urine Blood (Negative) Urine Nitrite (Negative) Urine Bilirubin (Negative) Urine Urobilinogen (<2.0) mg/dL Ur Leukocyte Esterase (Negative) Serum Alcohol mg/dL - EKG Data -: EKG Interpreted by Me (and Dr Renee) When compared to previous EKG there are: no significant change Disposition Clinical Impression: Near syncope, Seizure disorder Disposition: ADMITTED IP TO THIS [facility] Condition: Good Is patient prescribed a controlled substance at d/c from ED?: No Time of Disposition: 04:51
[2018-05-15 18:16] LABS: Appearance,Urine Clear (Clear); Basophils # (A) 0.1 k/uL (0-0.2); Basophils % (A) 1 %; Bilirubin,Urine 1+ (Negative); Blood,Urine Negative (Negative); Color,Urine Yellow; Eosinophils # (A) 0.3 k/uL (0-0.7); Eosinophils % (A) 4 %; Glucose,Urine (UA) Negative (Negative); HCT 42.9 % (34.0-46.0); HGB 14.2 gm/dL (11.4-16.0); Ketones,Urine Negative (Negative); Leukocyte Esterase,Urine Negative (Negative); Lymphocytes # (A) 1.5 k/uL (1.0-4.8); Lymphocytes % (A) 22 %; MCH 28.8 pg (25.0-35.0); MCV 87.2 fL (80.0-100.0); Mean Platelet Volume 7.5; Monocytes # (A) 0.5 k/uL (0-1.0); Monocytes % (A) 7 %; Neutrophils # (A) 4.3 k/uL (1.3-7.7); Neutrophils % (A) 64 %; Nitrite,Urine Negative (Negative); PH, Urine 6.5 (5.0-8.0); Platelet Count 251 k/uL (150-450); Protein,Urine Negative (Negative); RBC 4.92 m/uL (3.80-5.40); RDW 13.7 % (11.5-15.5); Specific Gravity,Urine 1.008 (1.001-1.035); WBC 6.8 k/uL (3.8-10.6)
[2018-05-15 18:21] LABS: Partial Thromboplastin Time 22.8 sec (22.0-30.0); Prothrombin Time 9.9 sec (9.0-12.0)
[2018-05-15 18:22] LABS: ALT 81 U/L (9-52); AST 75 U/L (14-36); Albumin 4.2 g/dL (3.5-5.0); Alcohol <10 mg/dL; Alkaline Phosphatase 207 U/L (38-126); Anion Gap 7 mmol/L; Blood Urea Nitrogen 18 mg/dL (7-17); Calcium 9.6 mg/dL (8.4-10.2); Carbon Dioxide 29 mmol/L (22-30); Chloride 104 mmol/L (98-107); Glucose 110 mg/dL (74-99); Magnesium 2.1 mg/dL (1.6-2.3); Potassium 4.5 mmol/L (3.5-5.1); Sodium 140 mmol/L (137-145); Total Protein 7.1 g/dL (6.3-8.2)
[2018-05-15 18:23] LABS: Creatine Kinase 40 U/L (30-135)
--- NOTE | 2018-05-15 18:25 | CT ---
EXAMINATION TYPE: CT brain diana gilmore con DATE OF EXAM: 05/15/2018 COMPARISON: 09/17/2017 HISTORY: Multiple seizures neck pain. Headache CT DLP: 1169.5 mGycm Automated exposure control for dose reduction was used. TECHNIQUE: CT scan of the head and cervical spine are performed without contrast. FINDINGS: There is 1.8 x 1.4 cm partly calcified mass at the anterior aspect of the sella turcica. There is no midline shift. There is no sign of intracranial hemorrhage. Calvarium is intact. There is cerebral cortical atrophy. There is multilevel spondylotic changes in the cervical spine from C4 to C7. There is a few millimete r subluxation of C7 in relation to T1. There is extensive endplate spur formation and bony spinal cecelia nosis at C5-6. Skull base is intact. There is no compression fracture. IMPRESSION: Moderate multilevel spondylotic changes in the cervical spine appears stable. C5-6 bony spinal stenos is. Large partly calcified mass in the midline anterior sella turcica could be a meningioma and appears u nchanged compared to old exam. No acute intracranial abnormality. No fracture.
[2018-05-15 18:36] LABS: Creatine Kinase MB 0.4 ng/mL (0.0-2.4); Troponin I <0.012 ng/mL (0.000-0.034)
--- NOTE | 2018-05-15 19:18 | XR ---
EXAMINATION TYPE: XR chest 2V DATE OF EXAM: 05/15/2018 COMPARISON: NONE HISTORY: Chest pain TECHNIQUE: Frontal and lateral views of the chest are obtained. FINDINGS: There is no heart failure nor confluent pneumonic infiltrate. Costophrenic angles are bandar r. There is posterior fusion surgery in the lumbar spine. There are chest leads. IMPRESSION: No active cardiopulmonary disease.
[2018-05-15] MEDS ORDERED: amLODIPine 5 MG TAB PO STA (19:22)
[2018-05-15] MEDS ORDERED: oxyCODONE-APAP 10-325MG 1 EACH TAB PO STA (19:34)
[2018-05-15] MEDS ORDERED: NALOXONE 0.4 MG/ML 1 ML VIAL IV PRN (19:45)
[2018-05-16] MEDS: METOPROLOL TARTRATE 25 MG TAB PO SCH ×3 (02:45→23:00)
[2018-05-16] MEDS: SODIUM CHLORIDE 0.9% 1,000 ML IV SCH ×3 (02:54→23:01)
[2018-05-16] MEDS: GABAPENTIN 300 MG CAP PO SCH ×5 (02:55→22:58)
[2018-05-16] MEDS: amLODIPine 5 MG TAB PO SCH (02:56)
[2018-05-16] MEDS: BACLOFEN 10 MG TAB PO SCH ×3 (02:57→23:00)
[2018-05-16] MEDS: OXYBUTYNIN CHLORIDE 5 MG TAB PO SCH ×3 (02:57→23:00)
[2018-05-16] MEDS: oxyCODONE-APAP 10-325MG 1 EACH TAB PO PRN ×2 (03:02→16:26)
[2018-05-16] MEDS: LIOTHYRONINE SODIUM 5 MCG TAB PO SCH ×2 (03:52→08:19)
[2018-05-16] MEDS: levETIRAcetam 500 MG TAB PO SCH ×6 (03:53→23:22)
[2018-05-16] MEDS: ETODOLAC 300 MG CAPSULE PO SCH ×3 (03:53→23:22)
[2018-05-16] MEDS: LEVOTHYROXINE 112 MCG TAB PO SCH (06:20)
[2018-05-16] MEDS: LOSARTAN 50 MG TAB PO SCH (08:19)
[2018-05-16] MEDS: PANTOPRAZOLE 40 MG TABLET PO SCH (08:19)
[2018-05-16] MEDS: DULoxetine HCL 60 MG CAPSULE.DR PO SCH (08:20)
[2018-05-16] MEDS: LORATADINE 10 MG TAB PO SCH (08:20)
--- NOTE | 2018-05-16 12:30 | US ---
EXAMINATION TYPE: US carotid duplex BILAT DATE OF EXAM: 05/16/2018 COMPARISON: Previous study dated 04/26/2017 CLINICAL HISTORY: tia. EXAM MEASUREMENTS: RIGHT: Peak Systolic Velocity (PSV) cm/sec ----- Right CCA: 56.0 ----- Right ICA: 91.2 ----- Right ECA: 53.1 ICA/CCA ratio: 1.6 RIGHT: End Diastole cm/sec ----- Right CCA: 11.6 ----- Right ICA: 26.0 ----- Right ECA: 8.6 LEFT: Peak Systolic Velocity (PSV) cm/sec ----- Left CCA: 81.4 ----- Left ICA: 87.8 ----- Left ECA: 61.4 ICA/CCA ratio: 1.1 LEFT: End Diastole cm/sec ----- Left CCA: 11.5 ----- Left ICA: 18.6 ----- Left ECA: 0.0 VERTEBRALS (direction of flow): Right Vertebral: Antegrade Left Vertebral: Antegrade Rhythm: Normal Exam limitations due to high burfication and tortuous vessels. Mild changes, no elevated velocity in either ICA. No significant stenosis. IMPRESSION: I DO NOT SEE EVIDENCE OF A HEMODYNAMICALLY SIGNIFICANT STENOSIS IN EITHER CAROTID SYSTEM. Criteria for Assigning % of Stenosis / Diameter reduction (Estimation based on the indirect measurements of the internal carotid artery velocities (ICA PSV). 1. Normal (no stenosis)=ICA PSV < 125 cm/s: ratio < 2.0: ICA EDV<40 cm/s. 2. Less than 50% stenosis=ICA PSV < 125 cm/s: ratio < 2.0: ICA EDV<40 cm/s. 3. 50 to 69% stenosis=ICA PSV of 125 to 230 cm/s: ration 2.0 ? 4.0: ICA EDV 40-100 cm/s. 4. Greater than 70% stenosis to near occlusion= ICA PSV > 230 cm/s: ratio > 4.0: ICA EDV > 100 cm/s. 5. Near occlusion= ICA PSV velocities may be low or undetectable: variable ratio and ICA EDV. 6. Total occlusion=unable to detect flow.
--- NOTE | 2018-05-16 12:52 | P.CRDCN ---
History of Present Illness Consult date: 05/16/18 History of present illness: This is a 67-year-old female with history of hypertension and also seizure disorder, being followed by neurology closely. Patient has been treated with Keppra and the dose of the medication was recently increased because of recurrent seizures. Patient now came to the hospital with complaints of increasing seizure episodes. Apparently she has jerking movements and feels like a fog coming in front of her eyes. Sometimes he loses consciousness. Sometimes if she doesn't lose consciousness. Denies any chest pain, palpitations, dizziness. Patient was slightly bradycardic in the emergency room. There was consideration for possible syncopal episodes. We're asked to see the patient for possibility of syncope. So fa, Patient did not have any significant cardiac arrhythmias. EKG showed sinus rhythm with a right bundle branch block. We're awaiting further evaluation by neurologist. We'll continue to monitor blood pressure and also heart rate. If neurology doesn't feel that she is having seizure episodes, we may consider long-term monitoring. Otherwise, no further cardiac workup necessary at this time. 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, back pain History of Any Multi-Drug Resistant Organisms: None Reported Past Surgical History: Back Surgery, Cholecystectomy, Joint Replacement, Orthopedic Surgery Additional Past Surgical History / Comment(s): left knee and left hip replacement, right wrist surgery, bilateral carpal tunnel release Past Anesthesia/Blood Transfusion Reactions: No Reported Reaction Past Psychological History: Anxiety Smoking Status: Never smoker Past Alcohol Use History: None Reported Past Drug Use History: None Reported - Past Family History Mother Family Medical History: Cancer Additional Family Medical History / Comment(s): from [facility] Father Family Medical History: Diabetes Mellitus Additional Family Medical History / Comment(s): from DM complications Medications and Allergies Home Medications Medication Instructions Recorded Confirmed Type Baclofen [Lioresal] 10 mg PO BID 04/26/17 05/15/18 History Cetirizine HCl [Zyrtec] 10 mg PO DAILY 04/26/17 05/15/18 History DULoxetine HCL [Cymbalta] 60 mg PO DAILY 04/26/17 05/15/18 History Gabapentin [Neurontin] 600 mg PO Q6H 04/26/17 05/15/18 History Liothyronine Sodium [Cytomel] 10 mcg PO MOTUWETHFRSA 04/26/17 05/15/18 History Losartan Potassium [Cozaar] 100 mg PO DAILY 04/26/17 05/15/18 History Multivitamins, Thera [Multivitamin 1 tab PO DAILY 04/26/17 05/15/18 History (formulary)] Oxybutynin Chloride [Ditropan] 5 mg PO BID 04/26/17 05/15/18 History Pantoprazole Sodium [Protonix] 40 mg PO DAILY 04/26/17 05/15/18 History amLODIPine [Norvasc] 5 mg PO DAILY 04/26/17 05/15/18 History oxyCODONE-APAP 10-325MG [Percocet 1 tab PO Q8H PRN 04/26/17 05/15/18 History 10-325 mg] Metoprolol Tartrate [Lopressor] 25 mg PO BID 09/17/17 05/15/18 History levETIRAcetam [Keppra] 500 mg PO BID 09/17/17 05/15/18 History Ergocalciferol [Vitamin D2] 50,000 unit PO WE 05/15/18 05/15/18 History Etodolac [Lodine] 300 mg PO BID 05/15/18 05/15/18 History Levothyroxine Sodium [Synthroid] 112 mcg PO DAILY 05/15/18 05/15/18 History levETIRAcetam [Keppra] 1,000 mg PO BID 05/15/18 05/15/18 History Allergies Allergy/AdvReac Type Severity Reaction Status Date / Time adhesive tape Allergy Rash/Hives Verified 05/15/18 19:29 hydrocodone [From Vicodin] Allergy Rash/Hives Verified 05/15/18 19:29 metaxalone [From Skelaxin] Allergy Rash/Hives Verified 05/15/18 19:29 methocarbamol [From Robaxin] Allergy Rash/Hives Verified 05/15/18 19:29 Sulfa (Sulfonamide Allergy Rash/Hives Verified 05/15/18 19:29 Antibiotics) Physical Exam Vitals: Vital Signs Temp Pulse Pulse Resp BP BP Pulse Ox 05/16/18 08:22 98.1 F 95 16 170/63 95 05/16/18 03:00 16 05/16/18 02:26 98.1 F 44 L 18 170/82 99 05/16/18 00:10 98.4 F 48 L 17 172/59 96 05/15/18 19:16 98.4 F 45 L 18 189/73 98 05/15/18 19:00 165/90 05/15/18 16:32 98.8 F 65 16 183/79 96 Intake and Output 05/15/18 05/16/18 05/16/18 22:59 06:59 14:59 Intake Total 300 220 Balance 300 220 Intake: Intake, IV Titration 300 Amount Sodium Chloride 0.9% 1, 300 000 ml @ 75 mls/hr IV . [id number] [facility] Rx#:[id number] Oral 220 Other: # Voids 3 Weight 97.522 kg GENERAL EXAM: Patient is alert and oriented and doesn't appear to be in any acute distress HEENT: Normocephalic. Normal reaction of pupils, equal size, normal range of extraocular motion. No erythema or exudates in the throat. NECK: No masses, no nuchal rigidity. CHEST: No chest wall deformity. LUNGS: Equal air entry with no crackles or wheeze. HEART: S1 and S2 normal with no audible mumurs or gallops. Regular rhythm, femorals equal on both sides.. ABDOMEN: No hepatosplenomegaly, normal bowel sounds, no guarding or rigidity. SKIN: No rashes CENTRAL NERVOUS SYSTEM: No focal deficits. EXTREMITIES: No cyanosis, clubbing or edema. Results 05/15/18 17:30 05/15/18 17:30 Cardiac Enzymes 05/15/18 05/15/18 Range/Units 17:30 17:30 AST 75 H (14-36) U/L CK-MB (CK-2) 0.4 (0.0-2.4) ng/mL Troponin I <0.012 (0.000-0.034) ng/mL Coagulation 05/15/18 Range/Units 17:30 PT 9.9 (9.0-12.0) sec APTT 22.8 (22.0-30.0) sec CBC 05/15/18 Range/Units 17:30 WBC 6.8 (3.8-10.6) k/uL RBC 4.92 (3.80-5.40) m/uL Hgb 14.2 (11.4-16.0) gm/dL Hct 42.9 (34.0-46.0) % Plt Count 251 (150-450) k/uL Comprehensive Metabolic Panel 05/15/18 Range/Units 17:30 Sodium 140 (137-145) mmol/L Potassium 4.5 (3.5-5.1) mmol/L Chloride 104 (98-107) mmol/L Carbon Dioxide 29 (22-30) mmol/L BUN 18 H (7-17) mg/dL Creatinine 0.61 (0.52-1.04) mg/dL Glucose 110 H (74-99) mg/dL Calcium 9.6 (8.4-10.2) mg/dL AST 75 H (14-36) U/L ALT 81 H (9-52) U/L Alkaline Phosphatase 207 H (38-126) U/L Total Protein 7.1 (6.3-8.2) g/dL Albumin 4.2 (3.5-5.0) g/dL Current Medications Generic Name Dose Route Start Last Admin Trade Name Freq PRN Reason Stop Dose Admin Amlodipine Besylate 5 mg 05/16/18 09:00 05/16/18 02:56 Norvasc PO 5 mg DAILY JOYCELYN Administration Baclofen 10 mg 05/15/18 21:00 05/16/18 08:20 Lioresal PO 10 mg BID JOYCELYN Administration Duloxetine HCl 60 mg 05/16/18 09:00 05/16/18 08:20 Cymbalta PO 60 mg DAILY JOYCELYN Administration Ergocalciferol 50,000 unit 05/20/18 09:00 Vitamin D2 PO WE JOYCELYN Etodolac 300 mg 05/15/18 21:00 05/16/18 08:20 Lodine PO 300 mg BID JOYCELYN Administration Gabapentin 600 mg 05/15/18 20:00 05/16/18 08:19 Neurontin PO 600 mg Q6H JOYCELYN Administration Sodium Chloride 1,000 mls @ 75 mls/hr 05/15/18 19:45 05/16/18 02:54 Saline 0.9% IV 75 mls/hr .[id number] JOYCELYN Administration Levetiracetam 500 mg 05/15/18 21:00 05/16/18 08:20 Keppra PO 500 mg BID JOYCELYN Administration Levetiracetam 1,000 mg 05/15/18 21:00 05/16/18 08:20 Keppra PO 1,000 mg BID JOYCELYN Administration Levothyroxine Sodium 112 mcg 05/16/18 06:30 05/16/18 06:20 Synthroid PO 112 mcg DAILY@0630 JOYCELYN Administration Liothyronine Sodium 10 mcg 05/15/18 20:00 05/16/18 08:19 Cytomel PO 10 mcg MOTUWETHFRSA JOYCELYN Administration Loratadine 10 mg 05/16/18 09:00 05/16/18 08:20 Claritin PO 10 mg DAILY JOYCELYN Administration Losartan Potassium 100 mg 05/16/18 09:00 05/16/18 08:19 Cozaar PO 100 mg DAILY JOYCELYN Administration Metoprolol Tartrate 25 mg 05/15/18 21:00 05/16/18 08:19 Lopressor PO 25 mg BID JOYCELYN Administration Multivitamins 1 each 05/16/18 12:00 Theragran PO DAILY@1200 JOYC[facility]N Naloxone HCl 0.2 mg 05/15/18 19:45 Narcan IV Q2M PRN Opioid Reversal Oxybutynin Chloride 5 mg 05/15/18 21:00 05/16/18 08:19 Ditropan PO 5 mg BID JOYC[facility]N Administration Oxycodone/Acetaminophen 1 each 05/15/18 19:47 05/16/18 03:02 Percocet 10-325 PO 1 each Q8H PRN Administration Pain Pantoprazole Sodium 40 mg 05/16/18 09:00 05/16/18 08:19 Protonix PO 40 mg DAILY JOYCELYN Administration Intake and Output 05/15/18 05/16/18 05/16/18 22:59 06:59 14:59 Intake Total 300 220 Balance 300 220 Intake: Intake, IV Titration 300 Amount Sodium Chloride 0.9% 1, 300 000 ml @ 75 mls/hr IV . [id number] [facility] Rx#:[id number] Oral 220 Other: # Voids 3 Weight 97.522 kg 05/15/18 17:30 05/15/18 17:30 EKG Interpretations (text) Sinus rhythm with right bundle branch block Assessment and Plan (1) Seizure disorder Current Visit: Yes Status: Acute Code(s): G40.909 - EPILEPSY, UNSP, NOT INTRACTABLE, WITHOUT STATUS EPILEPTICUS SNOMED Code(s): 877094596 (2) Meningioma Current Visit: No Status: Acute Code(s): D32.9 - BENIGN NEOPLASM OF MENINGES , UNSPECIFIED SNOMED Code(s): 168409294 (3) Hypertension Current Visit: No Status: Chronic Code(s): I10 - ESSENTIAL (PRIMARY) HYPERTENSION SNOMED Code(s): 49283919 (4) Hypothyroidism Current Visit: No Status: Chronic Code(s): E03.9 - HYPOTHYROIDISM, UNSPECIFIED SNOMED Code(s): 20484732 Plan: Continue to monitor her vital signs closely. We'll wait for neurology input. If neurology doesn't think that she is having seizure episodes, may consider long-term monitoring as an outpatient
--- NOTE | 2018-05-16 13:07 | HP ---
HISTORY AND PHYSICAL CHIEF COMPLAINT: This patient is a 67-year-old white female with seizures every day, worsening over the past 2 months, to the point where she has fallen every day and is unsafe at home, at which time she tried increased medicine from Dr. Moy, her neurologist, up to 1500 mg b.i.d. of Keppra. It did not work. She is still having 4 to 6 seizures a day and is falling all the time. She was brought to the hospital for intractable seizures. She has fallen a lot on her bottom, did not hit her head. She threw up after she fell recently, at which time she was brought to the hospital. HOME MEDICATIONS: 1. Lioresal 10 mg b.i.d. 2. Zyrtec 10 mg daily. 3. Cymbalta 60 mg daily. 4. Neurontin 600 mg q.6 hours. 5. Cytomel 10 mcg p.o. daily. 6. Cozaar 100 mg daily. 7. Multivitamin daily. 8. Ditropan 5 mg b.i.d. 9. Protonix 40 mg daily. 10.Norvasc 5 mg daily. 11.Percocet 10/325 q.8. 12.Lopressor 25 b.i.d. 13.Keppra 500 b.i.d. 14.Vitamin D 50,000 units once a week. 15.Lodine 300 mg b.i.d. 16.Keppra 1000 mg p.o. b.i.d. 17.Synthroid 112 mcg daily. ALLERGIES: 1. VICODIN. 2. SKELAXIN. 3. ROBAXIN. 4. ADHESIVE TAPE. 5. SULFA. REVIEW OF SYSTEM: Fourteen-point review of systems negative except as mentioned in HPI. PAST MEDICAL HISTORY: 1. Hypertension. 2. Osteoarthritis. 3. Seizure disorder. 4. Hypothyroidism. 5. Nodules on pituitary gland. 6. Chronic back pain. 7. History of anxiety. PAST SURGICAL HISTORY: 1. Back surgery. 2. Cholecystectomy. 3. Joint replacement. 4. Orthopedic surgery. 5. Left knee and left hip replacement. 6. Right wrist surgery. 7. Bilateral carpal tunnel release. SOCIAL HISTORY: No smoking. No alcohol. No illicit drugs. FAMILY HISTORY: Mother with cervical cancer. Father with diabetes mellitus. PHYSICAL EXAMINATION: Vital signs are stable. Afebrile. Temperature 98.4, pulse 45 to 64, blood pressure 180s to 160s over 70s to 90s, oxygen 96% to 98%. ENDOCRINE: BMI is over 30. CARDIOVASCULAR: S1, S2. LUNGS: Clear. OPHTHALMOLOGIC: Pupils equal, round, reactive to light and accommodation. NEUROLOGIC: Muscle strength equal x4. ABDOMEN: Soft. PSYCH: Normal. EKG shows sinus bradycardia. ASSESSMENT: 1. Uncontrolled seizures. 2. Hypertension acceleration. 3. Abnormal CT scan of the brain with a partially calcified mass in the anterior turcica, moderate spondylitic changes in her spine. 4. Bradycardia into the 40s. Labs were reviewed. CT scan was reviewed. Check labs. Check thyroid doses. 1. Elevated liver enzymes of unclear etiology. May be possibly due to seizure medications. Alcohol is negative. Will do an ultrasound of the liver. 2. Near-syncope. 3. Seizure disorder. Will request an opinion from Dr. Moy, Neurology. Cardiology consult. Check thyroid. Please see further orders in the chart. MMODL / IJN: [id number] /
[2018-05-16] MEDS: MULTIVITAMINS, THERA 1 EACH TAB PO SCH (13:20)
[2018-05-16 13:39] LABS: T4, Free (Free Thyroxine) 1.39 ng/dL (0.78-2.19)
--- NOTE | 2018-05-16 15:15 | P.CNNES ---
History of Present Illness Consult date: 05/16/18 Requesting physician: Adonis Solomon Reason for Consult: Seizures History of Present Illness: Patient is a pleasant 67-year-old female who is being evaluated by the neurology service on 05/16/2018 per the request of Dr. Solomon for seizures. Patient is known to our service and follows in our office for seizures and back pain. Patient started having seizures approximately a year and a half ago and was placed on Keppra. Seizures were very well controlled on Keppra until recently. She started having increase in breakthrough seizures and her Keppra was increased to 1500 mg twice a day. Patient states she is now experiencing seizures daily. Patient reports having an aura prior to seizure. Usually, aura consists of extreme nausea with accompanying headache at times. Patient denies loss of bowel or bladder function. Patient denies biting her tongue. Patient reports visual changes prior to seizure. Chest x-ray done on admission shows no active cardiopulmonary disease. CT of the brain shows calcified mass at the anterior aspect of the sella turcica. There is no sign of intracranial hemorrhage. CT of the cervical spine shows multilevel spondylitic changes and spinal stenosis at C5-C6. EKG on admission showed bradycardia and cardiology was consulted. Vital signs on admission showed temperature 98.8, pulse rate 65, respiratory rate 16, blood pressure 183/79, and oxygen saturation 96% on room air. Labs on admission showed BUN of 18, creatinine 0.61, glucose 110, AST 75, ALT 81, alk phos 207. TSH was low at 0.033. Patient has not had any further seizures since admission. At the time of my evaluation, patient's resting comfortably in bed and appears to be in no acute distress. Review of Systems REVIEW OF SYSTEMS: Otherwise unremarkable and noncontributory. 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, back pain History of Any Multi-Drug Resistant Organisms: None Reported Past Surgical History: Back Surgery, Cholecystectomy, Joint Replacement, Orthopedic Surgery Additional Past Surgical History / Comment(s): left knee and left hip replacement, right wrist surgery, bilateral carpal tunnel release Past Anesthesia/Blood Transfusion Reactions: No Reported Reaction Past Psychological History: Anxiety Smoking Status: Never smoker Past Alcohol Use History: None Reported Past Drug Use History: None Reported - Past Family History Mother Family Medical History: Cancer Additional Family Medical History / Comment(s): from cervial CA Father Family Medical History: Diabetes Mellitus Additional Family Medical History / Comment(s): from DM complications Medications and Allergies Home Medications Medication Instructions Recorded Confirmed Type Baclofen [Lioresal] 10 mg PO BID 04/26/17 05/15/18 History Cetirizine HCl [Zyrtec] 10 mg PO DAILY 04/26/17 05/15/18 History DULoxetine HCL [Cymbalta] 60 mg PO DAILY 04/26/17 05/15/18 History Gabapentin [Neurontin] 600 mg PO Q6H 04/26/17 05/15/18 History Liothyronine Sodium [Cytomel] 10 mcg PO MOTUWETHFRSA 04/26/17 05/15/18 History Losartan Potassium [Cozaar] 100 mg PO DAILY 04/26/17 05/15/18 History Multivitamins, Thera [Multivitamin 1 tab PO DAILY 04/26/17 05/15/18 History (formulary)] Oxybutynin Chloride [Ditropan] 5 mg PO BID 04/26/17 05/15/18 History Pantoprazole Sodium [Protonix] 40 mg PO DAILY 04/26/17 05/15/18 History amLODIPine [Norvasc] 5 mg PO DAILY 04/26/17 05/15/18 History oxyCODONE-APAP 10-325MG [Percocet 1 tab PO Q8H PRN 04/26/17 05/15/18 History 10-325 mg] Metoprolol Tartrate [Lopressor] 25 mg PO BID 09/17/17 05/15/18 History levETIRAcetam [Keppra] 500 mg PO BID 09/17/17 05/15/18 History Ergocalciferol [Vitamin D2] 50,000 unit PO WE 05/15/18 05/15/18 History Etodolac [Lodine] 300 mg PO BID 05/15/18 05/15/18 History Levothyroxine Sodium [Synthroid] 112 mcg PO DAILY 05/15/18 05/15/18 History levETIRAcetam [Keppra] 1,000 mg PO BID 05/15/18 05/15/18 History Allergies Allergy/AdvReac Type Severity Reaction Status Date / Time adhesive tape Allergy Rash/Hives Verified 05/15/18 19:29 hydrocodone [From Vicodin] Allergy Rash/Hives Verified 05/15/18 19:29 metaxalone [From Skelaxin] Allergy Rash/Hives Verified 05/15/18 19:29 methocarbamol [From Robaxin] Allergy Rash/Hives Verified 05/15/18 19:29 Sulfa (Sulfonamide Allergy Rash/Hives Verified 05/15/18 19:29 Antibiotics) Physical Examination - Vital Signs Vital Signs: Vital Signs Temp Pulse Pulse Resp BP BP Pulse Ox 05/16/18 14:17 98.7 F 74 16 169/82 97 05/16/18 08:22 98.1 F 95 16 170/63 95 05/16/18 03:00 16 05/16/18 02:26 98.1 F 44 L 18 170/82 99 05/16/18 00:10 98.4 F 48 L 17 172/59 96 05/15/18 19:16 98.4 F 45 L 18 189/73 98 05/15/18 19:00 165/90 05/15/18 16:32 98.8 F 65 16 183/79 96 Intake and Output 05/15/18 05/16/18 05/16/18 22:59 06:59 14:59 Intake Total 300 340 Balance 300 340 Intake: Intake, IV Titration 300 Amount Sodium Chloride 0.9% 1, 300 000 ml @ 75 mls/hr IV . [id number] [facility] Rx#:[id number] Oral 340 Other: # Voids 3 Weight 97.522 kg PHYSICAL EXAM: GENERAL APPEARANCE: Patient is a well-developed, female who appears to be in no acute distress. HEENT: Normocephalic, atraumatic, no facial asymmetry is seen. Neck is supple with no masses felt. CARDIOVASCULAR: Regular rate and rhythm. ABDOMEN: Nontender, nondistended. EXTREMITIES: Show no edema or clubbing. NEUROLOGICAL EXAM: Patient is awake, alert, and oriented 3. Speech and language are normal. Strength is full in all 4 extremities. Sensory exam to light touch is normal in all 4 extremities. No facial asymmetry is seen on cranial nerve testing. No tremors or seizure-like activity noted. Results - Laboratory Findings CBC and BMP: 05/15/18 17:30 05/15/18 17:30 Abnormal Lab Findings: Abnormal Labs 05/15/18 05/15/18 05/15/18 17:30 17:30 17:30 BUN 18 H Glucose 110 H AST 75 H ALT 81 H Alkaline Phosphatase 207 H TSH 0.033 L Urine Bilirubin 1+ H Assessment and Plan Plan: Impression: 1. Seizure disorder, tonic-clonic type 2. Chronic back pain 3. Hypertension 4. Hypothyroid 5. Elevated liver enzymes 6. 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 Bradycardia Recommendation: Patient is having more frequent breakthrough seizures on current medicine which is Keppra 1500 mg twice a day. I will order an MRI of the brain to evaluate for possible contributing etiology. I will order an EEG and Keppra level. I will add Vimpat 100 mg twice a day titrating to 200 mg twice a day after one week. Continue cardiology workup for possible arrhythmia causing syncope. Ultrasound of the liver was ordered for elevated liver enzymes. I recommend adjusting thyroid medication per her levels drawn. Continue seizure precautions. Continue neurological checks. I will continue to follow with you. Further recommendations to follow testing. Thank you for allowing me to participate in the care of your patient. Feel free to call me with any questions or concerns. I performed an examination of the patient and discussed the management with the TRADE SPECIALIST. I have reviewed the TRADE SPECIALIST notes and agree with the findings and plan of care.
[2018-05-16] MEDS: LACOSAMIDE 50 MG TABLET PO SCH (23:00)
[2018-05-17] MEDS: oxyCODONE-APAP 10-325MG 1 EACH TAB PO PRN ×3 (00:03→18:06)
[2018-05-17] MEDS: GABAPENTIN 300 MG CAP PO SCH ×4 (04:49→20:22)
[2018-05-17] MEDS: LEVOTHYROXINE 112 MCG TAB PO SCH (06:10)
--- NOTE | 2018-05-17 09:02 | ECHOF ---
Referral Reason:tia MEASUREMENTS -------- HEIGHT: 157.5 cm WEIGHT: 97.5 kg BP: 170/63 RVIDd: 2.8 cm (< 3.3) IVSd: 1.7 cm (0.6 - 1.1) LVIDd: 2.9 cm (3.9 - 5.3) LVPWd: 2.0 cm (0.6 - 1.1) IVSs: 2.4 cm LVIDs: 1.9 cm LVPWs: 2.1 cm Ao Diam: 3.0 cm (2.0 - 3.7) AV Cusp: 1.8 cm (1.5 - 2.6) LA Diam: 3.5 cm (2.7 - 3.8) MV EXCURSION: 18.048 mm (> 18.000) MV EF SLOPE: 65 mm/s (70 - 150) EPSS: 0.2 cm MV E Dwight: 0.77 m/s MV DecT: 289 ms MV A Dwight: 0.60 m/s MV E/A Ratio: 1.27 RAP: 5.00 mmHg RVSP: 29.14 mmHg FINDINGS -------- Resting bradycardia (HR<60bpm). This was a technically difficult study with suboptimal apical views. The left ventricular size is normal. There is severe concentric left ventricular hypertrophy. Ove rall left ventricular systolic function is normal with, an EF between 55 - 60 %. The right ventricular wall thickness is normal measuring < 5mm. The left atrium is normal in size. The right atrium is normal in size. The aortic valve is trileaflet and appears structurally normal. There is trace mitral regurgitation. Trace tricuspid regurgitation present. The right ventricular systolic pressure, as measured by Dopp ler, is 29.14mmHg. Pulmonic valve appears structurally normal. The aortic root size is normal. The pericardium is normal. CONCLUSIONS -------- 1. Resting bradycardia (HR<60bpm). 2. This was a technically difficult study with suboptimal apical views. 3. The left ventricular size is normal. 4. There is severe concentric left ventricular hypertrophy. 5. Overall left ventricular systolic function is normal with, an EF between 55 - 60 %. 6. The right ventricular wall thickness is normal measuring < 5mm. 7. The left atrium is normal in size. 8. The right atrium is normal in size. 9. The aortic valve is trileaflet and appears structurally normal. 10. There is trace mitral regurgitation. 11. Trace tricuspid regurgitation present. 12. The right ventricular systolic pressure, as measured by Doppler, is 29.14mmHg. 13. Pulmonic valve appears structurally normal. 14. The aortic root size is normal. 15. The pericardium is normal. PLYWOOD PATCHER: Ailyn Escamilla RDCS
[2018-05-17] MEDS: amLODIPine 5 MG TAB PO SCH (09:09)
[2018-05-17] MEDS: levETIRAcetam 500 MG TAB PO SCH ×4 (09:09→20:22)
[2018-05-17] MEDS: BACLOFEN 10 MG TAB PO SCH ×2 (09:09→20:22)
[2018-05-17] MEDS: LACOSAMIDE 50 MG TABLET PO SCH (09:09)
[2018-05-17] MEDS: DULoxetine HCL 60 MG CAPSULE.DR PO SCH (09:09)
[2018-05-17] MEDS: OXYBUTYNIN CHLORIDE 5 MG TAB PO SCH ×2 (09:09→20:22)
[2018-05-17] MEDS: LOSARTAN 50 MG TAB PO SCH (09:09)
[2018-05-17] MEDS: LORATADINE 10 MG TAB PO SCH (09:10)
[2018-05-17] MEDS: PANTOPRAZOLE 40 MG TABLET PO SCH (09:10)
[2018-05-17] MEDS: ETODOLAC 300 MG CAPSULE PO SCH ×2 (09:16→20:22)
[2018-05-17] MEDS: MULTIVITAMINS, THERA 1 EACH TAB PO SCH (12:10)
[2018-05-17] MEDS: SODIUM CHLORIDE 0.9% 1,000 ML IV SCH (12:10)
--- NOTE | 2018-05-17 14:16 | P.PN ---
Subjective Progress Note Date: 05/17/18 This is a 67-year-old female with history of seizure disorder being treated with Keppra. Recently the dose was increased because of increasing episodes of "seizures". Patient came to the emergency room with the recurrent episodes and is admitted here for further evaluation. Initial EKGs and monitoring did not reveal any arrhythmias except right bundle-branch block. However, patient was having recurrent episodes of dizzy feeling and almost passing out, whenever she was sitting at the end of the bed. She was transferred to telemetry unit. She was noted to have episodes of 2-1 AV conduction. Today while she was walking to the bathroom., She again complained of dizziness which correlated with her episodes of 2to 1 block. Patient is advised to have permanent pacemaker implantation. See was advised the risks and benefits of the procedure including the possibility of pneumothorax, hemothorax, cardiac perforation recurrent effusion infections and hematomas. Patient fully understood and accepted. Objective - Vital Signs Vital signs: Vital Signs Temp 97.3 F L 05/17/18 12:00 Pulse 45 L 05/17/18 12:00 Resp 18 05/17/18 12:00 BP 180/80 05/17/18 12:00 Pulse Ox 97 05/17/18 12:00 Intake & Output 05/16/18 05/17/18 05/17/18 18:59 06:59 18:59 Intake Total 1120 1080 480 Output Total 900 Balance 1120 1080 -420 Weight 71 kg Intake: Intake, IV Titration 600 Amount Sodium Chloride 0.9% 1, 600 000 ml @ 75 mls/hr IV . [id number] JOYCELYN Rx#:[id number] Oral 520 1080 480 Output: Urine 900 Other: # Voids 3 1 2 # Bowel Movements 0 - Exam GENERAL EXAM: Patient is alert and oriented and doesn't appear to be in any acute distress HEENT: Normocephalic. Normal reaction of pupils, equal size, normal range of extraocular motion. No erythema or exudates in the throat. NECK: No masses, no nuchal rigidity. CHEST: No chest wall deformity. LUNGS: Equal air entry with no crackles or wheeze. HEART: S1 and S2 normal with no audible mumurs or gallops. Regular rhythm, femorals equal on both sides.. ABDOMEN: No hepatosplenomegaly, normal bowel sounds, no guarding or rigidity. SKIN: No rashes CENTRAL NERVOUS SYSTEM: No focal deficits. EXTREMITIES: No cyanosis, clubbing or edema. - Labs CBC & Chem 7: 05/15/18 17:30 05/15/18 17:30 Assessment and Plan (1) Seizure disorder Current Visit: Yes Status: Acute Code(s): G40.909 - EPILEPSY, UNSP, NOT INTRACTABLE, WITHOUT STATUS EPILEPTICUS SNOMED Code(s): 118304808 (2) Meningioma Current Visit: No Status: Acute Code(s): D32.9 - BENIGN NEOPLASM OF MENINGES , UNSPECIFIED SNOMED Code(s): 924397023 (3) Hypertension Current Visit: No Status: Chronic Code(s): I10 - ESSENTIAL (PRIMARY) HYPERTENSION SNOMED Code(s): 33528489 (4) Hypothyroidism Current Visit: No Status: Chronic Code(s): E03.9 - HYPOTHYROIDISM, UNSPECIFIED SNOMED Code(s): 22282502 (5) Second degree AV block Current Visit: Yes Status: Acute Code(s): I44.1 - ATRIOVENTRICULAR BLOCK, SECOND DEGREE SNOMED Code(s): 670956977 (6) Near syncope Current Visit: Yes Status: Acute Code(s): R55 - SYNCOPE AND COLLAPSE SNOMED Code(s): 064661778 Plan: We will proceed with permanent pacemaker implantation tomorrow.
--- NOTE | 2018-05-17 16:23 | P.PN ---
Subjective Progress Note Date: 05/17/18 Principal diagnosis: Patient is a pleasant 67-year-old female who is being followed by the neurology service for seizures. Patient follows in the office for seizures and back pain. Patient started having seizures approximately a year and half ago and was placed on Keppra. Recently Keppra was increased due to breakthrough seizures. Patient reports increasing frequency of seizure activity. She describes seizure activity as consistent with previous seizure activity. Patient states there is an aura prior to seizure with extreme nausea and occasional headache. Patient denies loss of bowel or bladder function. Patient denies biting her tongue. Cardiology was consulted for possible cardiac etiology. Following admission to the hospital, patient was placed on telemetry and was found to have significant cardiac arrhythmia with a second- degree AV block. This is likely causing patient's symptoms. Patient is due to have a permanent pacemaker implant tomorrow. At the time of my evaluation, patient is resting comfortably in bed and appears to be in no acute distress. Objective - Vital Signs Vital signs: Vital Signs Temp 97.5 F L 05/17/18 15:05 Pulse 58 L 05/17/18 15:05 Resp 18 05/17/18 15:05 BP 194/69 05/17/18 15:05 Pulse Ox 95 05/17/18 15:05 Intake & Output 05/16/18 05/17/18 05/17/18 18:59 06:59 18:59 Intake Total 1120 1080 580 Output Total 900 Balance 1120 1080 -320 Weight 71 kg Intake: Intake, IV Titration 600 Amount Sodium Chloride 0.9% 1, 600 000 ml @ 75 mls/hr IV . [id number] [facility] Rx#:[id number] Oral 520 1080 580 Output: Urine 900 Other: # Voids 3 1 2 # Bowel Movements 0 - Constitutional Constitutional Comment(s): PHYSICAL EXAM: GENERAL APPEARANCE: Patient is a well-developed, female who appears to be in no acute distress. HEENT: Normocephalic, atraumatic, no facial asymmetry is seen. Neck is supple with no masses felt. CARDIOVASCULAR: Regular rate and rhythm. ABDOMEN: Nontender, nondistended. EXTREMITIES: Show no edema or clubbing. NEUROLOGICAL EXAM: Patient is awake, alert, and oriented 3. Speech and language are normal. Strength is full in all 4 extremities. No facial asymmetry is seen on cranial nerve testing. Sensory exam is normal to light touch in all 4 extremities. No tremors or seizure-like activity noted. - Labs CBC & Chem 7: 05/15/18 17:30 05/15/18 17:30 Assessment and Plan Plan: Impression: 1. Seizure disorder, tonic-clonic type 2. Chronic back pain 3. Hypertension 4. Hypothyroid 5. Elevated liver enzymes 6. 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 Bradycardia 8. Cardiac arrhythmia/second-degree AV block Recommendation: Patient seemed to be having more frequent breakthrough seizures on current medicine which is Keppra 1500 mg twice a day. Patient states episodes are happening daily. Patient was found to have bradycardia on admission and cardiology was consulted. Patient was placed on telemetry and found to have second-degree AV block causing symptoms. Patient will undergo a permanent pacemaker implantation tomorrow. I will discontinue Vimpat as these episodes seem to be cardiac related and not seizures. I am awaiting EEG and Keppra level. I will discontinue Vimpat . Continue Keppra at current dosing of 1500 mg twice daily. Continue cardiology management. Continue seizure precautions. Continue neurological checks. I will continue to follow with you. Further recommendations to follow testing. I performed an examination of the patient and discussed the management with the LIFT MECHANIC. I have reviewed the LIFT MECHANIC notes and agree with the findings and plan of care.
[2018-05-17] MEDS: HEPARIN SODIUM,PORCINE 5,000 UNIT/ML 1 ML VIAL SQ SCH (20:23)
--- NOTE | 2018-05-17 21:36 | P.CNPUL ---
History of Present Illness Consult date: 05/16/18 (Late entry note) Reason for consult: other Chief complaint: Syncope and intermittent seizures History of present illness: 67-year-old female with a past medical history of seizure disorder, hypertension presents to the emergency department for a chief complaint of possible change in baseline of seizures as well as syncopal episode, occurred 2 days prior to coming into the hospital Patient states she was diagnosed with seizures last year in May and started on Keppra by Dr. Moy. Patient states that 1 month ago she started to have an increase in seizures and Dr. Moy increased her Keppra from 1000 mg to 1500 mg twice a day. Patient states she is now experiencing seizures every day. She states she last had a seizure about 4 hours before coming into the hospital. She denies hitting her head and states her boyfriend saw her fall and he said she did not hit her head. Patient denies any loss of bladder or bowel function. She denies biting her tongue. Patient states she almost threw up afterwards. She denies any injuries.Patient has no other complaints at this time including shortness of breath, chest pain, abdominal pain, nausea or vomiting, headache, or visual changes. Patient has been evaluated by a computed tomography scan of the head as well as chest x-ray, carotid duplex as well as echocardiogram is performed as well, echocardiogram is significant for ejection fraction of 55-60%, trace MR is noted along with TR, mild elevation of right-sided systolic blood pressure is noted off 29 mm Hg, carotid duplex is negative for any significant stenosis EKG revealed sinus bradycardia and right bundle branch block and LVH, computed tomography scan of the head suggestive of small meningioma of 1.8 x 1.4 cm in midline without any significant change compared to one performed back in August 2017, along with some arthritic changes seen in C-spine, chest x-ray unremarkable Review of Systems All systems: negative 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, back pain History of Any Multi-Drug Resistant Organisms: None Reported Past Surgical History: Back Surgery, Cholecystectomy, Joint Replacement, Orthopedic Surgery Additional Past Surgical History / Comment(s): left knee and left hip replacement, right wrist surgery, bilateral carpal tunnel release Past Anesthesia/Blood Transfusion Reactions: No Reported Reaction Past Psychological History: Anxiety Smoking Status: Never smoker Past Alcohol Use History: None Reported Past Drug Use History: None Reported - Past Family History Mother Family Medical History: Cancer Additional Family Medical History / Comment(s): from cervial CA Father Family Medical History: Diabetes Mellitus Additional Family Medical History / Comment(s): from DM complications Medications and Allergies Home Medications Medication Instructions Recorded Confirmed Type Baclofen [Lioresal] 10 mg PO BID 04/26/17 05/15/18 History Cetirizine HCl [Zyrtec] 10 mg PO DAILY 04/26/17 05/15/18 History DULoxetine HCL [Cymbalta] 60 mg PO DAILY 04/26/17 05/15/18 History Gabapentin [Neurontin] 600 mg PO Q6H 04/26/17 05/15/18 History Liothyronine Sodium [Cytomel] 10 mcg PO MOTUWETHFRSA 04/26/17 05/15/18 History Losartan Potassium [Cozaar] 100 mg PO DAILY 04/26/17 05/15/18 History Multivitamins, Thera [Multivitamin 1 tab PO DAILY 04/26/17 05/15/18 History (formulary)] Oxybutynin Chloride [Ditropan] 5 mg PO BID 04/26/17 05/15/18 History Pantoprazole Sodium [Protonix] 40 mg PO DAILY 04/26/17 05/15/18 History amLODIPine [Norvasc] 5 mg PO DAILY 04/26/17 05/15/18 History oxyCODONE-APAP 10-325MG [Percocet 1 tab PO Q8H PRN 04/26/17 05/15/18 History 10-325 mg] Metoprolol Tartrate [Lopressor] 25 mg PO BID 09/17/17 05/15/18 History levETIRAcetam [Keppra] 500 mg PO BID 09/17/17 05/15/18 History Ergocalciferol [Vitamin D2] 50,000 unit PO WE 05/15/18 05/15/18 History Etodolac [Lodine] 300 mg PO BID 05/15/18 05/15/18 History Levothyroxine Sodium [Synthroid] 112 mcg PO DAILY 05/15/18 05/15/18 History levETIRAcetam [Keppra] 1,000 mg PO BID 05/15/18 05/15/18 History Allergies Allergy/AdvReac Type Severity Reaction Status Date / Time adhesive tape Allergy Rash/Hives Verified 05/15/18 19:29 hydrocodone [From Vicodin] Allergy Rash/Hives Verified 05/15/18 19:29 metaxalone [From Skelaxin] Allergy Rash/Hives Verified 05/15/18 19:29 methocarbamol [From Robaxin] Allergy Rash/Hives Verified 05/15/18 19:29 Sulfa (Sulfonamide Allergy Rash/Hives Verified 05/15/18 19:29 Antibiotics) Physical Exam Vitals: Vital Signs Temp Pulse Resp BP Pulse Ox 05/17/18 15:05 97.5 F L 58 L 18 194/69 95 05/17/18 12:00 97.3 F L 45 L 18 180/80 97 05/17/18 08:00 97.0 F L 46 L 18 131/65 96 05/17/18 04:10 97.1 F L 48 L 18 144/82 96 05/17/18 01:09 42 L 17 Intake and Output 05/17/18 05/17/18 05/17/18 06:59 14:59 22:59 Intake Total 580 Output Total 900 200 Balance -320 -200 Intake: Oral 580 Output: Urine 900 200 Other: # Voids 1 2 # Bowel Movements 0 Weight 71 kg GENERAL EXAM: Patient is alert and oriented and doesn't appear to be in any acute distress HEENT: Normocephalic. Normal reaction of pupils, equal size, normal range of extraocular motion. No erythema or exudates in the throat. NECK: No masses, no nuchal rigidity. CHEST: No chest wall deformity. LUNGS: Equal air entry with no crackles or wheeze. HEART: S1 and S2 normal with no audible mumurs or gallops. Regular rhythm, femorals equal on both sides.. ABDOMEN: No hepatosplenomegaly, normal bowel sounds, no guarding or rigidity. SKIN: No rashes CENTRAL NERVOUS SYSTEM: No focal deficits. EXTREMITIES: No cyanosis, clubbing or edema. Results - Laboratory Findings CBC and BMP: 05/15/18 17:30 05/15/18 17:30 PT/INR, D-dimer PT 9.9 sec (9.0-12.0) 05/15/18 17:30 INR 1.0 (<1.2) 05/15/18 17:30 Abnormal lab findings: Abnormal Labs 05/15/18 05/15/18 05/15/18 17:30 17:30 17:30 BUN 18 H Glucose 110 H AST 75 H ALT 81 H Alkaline Phosphatase 207 H TSH 0.033 L Urine Bilirubin 1+ H - Diagnostic Findings Chest x-ray: report reviewed, image reviewed (As noted in HPI) Additional studies: As noted in HPI Assessment and Plan Assessment: Recurrent seizure Near syncope related to above Hypertension hypertensive cardiovascular disease Chronic neuropathy Meningioma likely Asymptomatic bradycardia C-spine stenosis Plan: We will use lorazepam for short-lived seizure as needed Continue Keppra as per recommended by neurology service Continued DVT and peptic ulcer disease prophylaxis Will keep patient in selective care no need to transfer to the ICU Monitor observe bradycardia closely as hemodynamic status is stable Further recommendations pending plan of care as per clinical response of the patient Time with Patient: Greater than 30
--- NOTE | 2018-05-17 21:42 | P.PN ---
Subjective Progress Note Date: 05/17/18 Principal diagnosis: Intermittent high-grade AV block, Symptomatic bradycardia, intermittent heart block, intermittent seizures, seizure disorder, degenerative joint disease osteoarthritis, severe morbid obesity possible sleep disorder breathing and sleep apnea 05/17/2018, patient seen eval examined during the rounds patient has being monitored on selective care on a telemetry bed where patient is having high- grade AV block with symptoms and dizziness and significant bradycardia episodes are episode ache patient is being followed by cardiovascular service as well as neurology service no active seizures were seen patient does have symptoms of ongoing dizziness, appears to be related to intermittent heart block, patient is being considered for a permanent pacemaker by cardiovascular services 67-year-old female with a past medical history of seizure disorder, hypertension presents to the emergency department for a chief complaint of possible change in baseline of seizures as well as syncopal episode, occurred 2 days prior to coming into the hospital Patient states she was diagnosed with seizures last year in May and started on Keppra by Dr. Moy. Patient states that 1 month ago she started to have an increase in seizures and Dr. Moy increased her Keppra from 1000 mg to 1500 mg twice a day. Patient states she is now experiencing seizures every day. She states she last had a seizure about 4 hours before coming into the hospital. She denies hitting her head and states her boyfriend saw her fall and he said she did not hit her head. Patient denies any loss of bladder or bowel function. She denies biting her tongue. Patient states she almost threw up afterwards. She denies any injuries.Patient has no other complaints at this time including shortness of breath, chest pain, abdominal pain, nausea or vomiting, headache, or visual changes. Patient has been evaluated by a computed tomography scan of the head as well as chest x-ray, carotid duplex as well as echocardiogram is performed as well, echocardiogram is significant for ejection fraction of 55-60%, trace MR is noted along with TR, mild elevation of right-sided systolic blood pressure is noted off 29 mm Hg, carotid duplex is negative for any significant stenosis EKG revealed sinus bradycardia and right bundle branch block and LVH, computed tomography scan of the head suggestive of small meningioma of 1.8 x 1.4 cm in midline without any significant change compared to one performed back in August 2017, along with some arthritic changes seen in C-spine, chest x-ray unremarkable Objective - Vital Signs Vital signs: Vital Signs Temp 97.5 F L 05/17/18 15:05 Pulse 58 L 05/17/18 15:05 Resp 18 05/17/18 15:05 BP 194/69 05/17/18 15:05 Pulse Ox 95 05/17/18 15:05 Intake & Output 05/17/18 05/17/18 05/18/18 06:59 18:59 06:59 Intake Total 1080 580 Output Total 900 200 Balance 1080 -320 -200 Weight 71 kg Intake: Oral 1080 580 Output: Urine 900 200 Other: # Voids 1 2 # Bowel Movements 0 - Exam GENERAL EXAM: Patient is alert and oriented and doesn't appear to be in any acute distress HEENT: Normocephalic. Normal reaction of pupils, equal size, normal range of extraocular motion. No erythema or exudates in the throat. NECK: No masses, no nuchal rigidity. CHEST: No chest wall deformity. LUNGS: Equal air entry with no crackles or wheeze. HEART: S1 and S2 normal with no audible mumurs or gallops. Regular rhythm, femorals equal on both sides.. ABDOMEN: No hepatosplenomegaly, normal bowel sounds, no guarding or rigidity. SKIN: No rashes CENTRAL NERVOUS SYSTEM: No focal deficits. EXTREMITIES: No cyanosis, clubbing or edema. - Labs CBC & Chem 7: 05/15/18 17:30 05/15/18 17:30 Assessment and Plan Assessment: High-grade AV block with significant symptomatic bradycardia Recurrent syncopal episode with symptoms related to above Recurrent mini seizure, likely related to above Near syncope related to above Hypertension hypertensive cardiovascular disease Chronic neuropathy Meningioma likely Asymptomatic bradycardia C-spine stenosis Plan: Agree with permanent pacemaker placement We will use lorazepam for short-lived seizure as needed, however it appears that patient is symptomatic more so for a rhythm problem rather than seizures Continue Keppra as per recommended by neurology service Continued DVT and peptic ulcer disease prophylaxis Will keep patient in selective care no need to transfer to the ICU for now Monitor observe bradycardia closely as hemodynamic status is stable Further recommendations pending plan of care as per clinical response of the patient Time with Patient: Greater than 30
[2018-05-17 22:53] LABS: Glucose,Whole Blood 101 mg/dL (75-99)
[2018-05-17] MEDS: ENALAPRILAT 1.25 MG/ML 1 ML VIAL IVP PRN (23:00)
--- NOTE | 2018-05-18 00:04 | PN ---
PROGRESS NOTE DATE OF SERVICE: 05/17/2018. HISTORY: She has been hemodynamically unstable. She has bradycardia in the 40s. She feels slightly lightheaded. PHYSICAL EXAMINATION: Blood pressure 170/70, respiratory rate of 18, pulse rate of 46, temperature 98, O2 saturation on room air is 96%. HEENT is unremarkable. Chest reveals decreased breath sounds. Cardiovascular system is S1, S2. Abdomen is soft. There is no edema. LABS: White count of 6.8, hemoglobin of 14.2. Sodium 140, potassium 4.5, chloride 104, bicarb 29, BUN 18, creatinine 0.61. IMPRESSION: 1. Syncope secondary to symptomatic bradycardia with high-degree AV block. 2. Doubt seizure. 3. Hypertension. 4. Obesity. 5. Uncontrolled hypertension. PLAN: At this point in time, the patient is being considered for possible pacemaker within the next day or 2. Would watch her closely while in the hospital and treat bradycardia accordingly. She has been seen by Pulmonary, Cardiology and Neurology, and we appreciate their input. IVONNE / SHINE: [id number] /
[2018-05-18] MEDS: SODIUM CHLORIDE 0.9% 1,000 ML IV SCH ×2 (00:08→16:39)
[2018-05-18] MEDS: oxyCODONE-APAP 10-325MG 1 EACH TAB PO PRN ×3 (00:08→18:41)
[2018-05-18] MEDS: ENALAPRILAT 1.25 MG/ML 1 ML VIAL IVP PRN (03:55)
[2018-05-18] MEDS: GABAPENTIN 300 MG CAP PO SCH ×4 (03:55→21:10)
[2018-05-18 05:59] LABS: Basophils # (A) 0.1 k/uL (0-0.2); Basophils % (A) 1 %; Eosinophils # (A) 0.2 k/uL (0-0.7); Eosinophils % (A) 3 %; HCT 41.5 % (34.0-46.0); HGB 13.5 gm/dL (11.4-16.0); Lymphocytes # (A) 2.1 k/uL (1.0-4.8); Lymphocytes % (A) 30 %; MCH 28.5 pg (25.0-35.0); MCHC 32.6 g/dL (31.0-37.0); MCV 87.4 fL (80.0-100.0); Mean Platelet Volume 7.1; Monocytes # (A) 0.5 k/uL (0-1.0); Monocytes % (A) 8 %; Neutrophils # (A) 3.8 k/uL (1.3-7.7); Neutrophils % (A) 55 %; Platelet Count 259 k/uL (150-450); RBC 4.75 m/uL (3.80-5.40); RDW 13.8 % (11.5-15.5); WBC 6.9 k/uL (3.8-10.6)
[2018-05-18] MEDS ORDERED: ceFAZolin 1,000 MG in SODIUM CHLORIDE 0.9% IRRIGATIO 250 ML IRRIGATION ONE (06:00)
[2018-05-18 06:07] LABS: Anion Gap 7 mmol/L; Blood Urea Nitrogen 11 mg/dL (7-17); Calcium 9.2 mg/dL (8.4-10.2); Carbon Dioxide 28 mmol/L (22-30); Chloride 107 mmol/L (98-107); Glucose 101 mg/dL (74-99); Magnesium 2.1 mg/dL (1.6-2.3); Potassium 3.7 mmol/L (3.5-5.1); Sodium 142 mmol/L (137-145)
[2018-05-18 06:09] LABS: INR 1.1 (<1.2); Prothrombin Time 10.4 sec (9.0-12.0)
[2018-05-18] MEDS ORDERED: fentaNYL (PF) 50 MCG/ML 2 ML AMP ONE ×2 (06:29→09:35)
[2018-05-18] MEDS ORDERED: MIDAZOLAM 2 MG/2 ML VIAL ONE ×2 (06:29→09:35)
[2018-05-18] MEDS ORDERED: IV FLUID CONTINUATION 1,000 ML IV ONE (06:30)
[2018-05-18] MEDS ORDERED: MIDAZOLAM 2 MG/2 ML VIAL IV ONE ×2 (06:32→09:45)
[2018-05-18] MEDS ORDERED: fentaNYL (PF) 50 MCG/ML 2 ML AMP IV ONE (06:32)
[2018-05-18] MEDS ORDERED: hydrALAZINE HCL 20 MG/ML 1 ML VIAL ONE (06:34)
[2018-05-18] MEDS ORDERED: LIDOCAINE 1% INJ 10MG/ML (20 ML MDV) SQ ONE ×4 (06:35→09:54)
[2018-05-18] MEDS ORDERED: hydrALAZINE HCL 20 MG/ML 1 ML VIAL IV ONE (06:37)
[2018-05-18] MEDS ORDERED: LABETALOL 5 MG/ML VIAL MDV IVP STA (06:37)
[2018-05-18] MEDS ORDERED: ACETAMINOPHEN TAB 325 MG TAB PO PRN ×2 (06:43→10:49)
--- NOTE | 2018-05-18 06:49 | P.PCN ---
Date of Procedure: 05/18/18 Preoperative Diagnosis: High degree AV block with episodes of syncope Postoperative Diagnosis: The same Procedure(s) Performed: Temporary pacemaker implantation Description of Procedure: This is a 67-year-old female with history of recurrent syncopal episodes who was noted to have high degree AV block with episodes of 2 to one conduction and also complete heart block. Patient is advised to have temporary pacemaker implantation. She is being scheduled for a permanent pacemaker later today. Procedure: Patient was brought to the quality lab technician in a fasting state. She was prepped and draped in the usual fashion. The right groin is infiltrated with lidocaine. She was given Versed 1 mg and fentanyl 25 mg. The right femoral vein was entered using Seldinger technique and a 6-[place] sheath was left in place. A 5-[place] balloontipped temporary pacemaker was advanced under fluoroscopy and was placed near the cardiac apex. Satisfactory pacing thresholds were obtained. The pacemaker is set at a rate of 50 and output of 3. No immediate complications. Final impression: #1. Temporary pacemaker implantation without any complications. Plan: proceed with permanent pacemaker implantation
[2018-05-18] MEDS ORDERED: LABETALOL 5 MG/ML VIAL MDV IV ONE ×2 (06:57→09:45)
[2018-05-18] MEDS: LOSARTAN 50 MG TAB PO SCH (08:34)
[2018-05-18] MEDS: amLODIPine 5 MG TAB PO SCH (08:34)
[2018-05-18] MEDS: DULoxetine HCL 60 MG CAPSULE.DR PO SCH (08:34)
[2018-05-18] MEDS: levETIRAcetam 500 MG TAB PO SCH ×3 (08:35→21:09)
[2018-05-18] MEDS: LORATADINE 10 MG TAB PO SCH (08:36)
[2018-05-18] MEDS: PANTOPRAZOLE 40 MG TABLET PO SCH (08:36)
[2018-05-18] MEDS: ETODOLAC 300 MG CAPSULE PO SCH ×2 (08:36→21:09)
[2018-05-18] MEDS ORDERED: ceFAZolin IN SWFI 2 GM/20 ML SYRINGE IVP STA (09:05)
[2018-05-18] MEDS ORDERED: IOPAMIDOL-250 100ML BTL IV ONE (09:28)
[2018-05-18] MEDS ORDERED: LIDOCAINE 1% INJ 10MG/ML (20 ML MDV) ONE ×2 (09:36→09:54)
[2018-05-18] MEDS: fentaNYL (PF) 50 MCG/ML 2 ML AMP IV ONE ×2 (09:44→09:57)
[2018-05-18] MEDS ORDERED: cloNIDine 0.1 MG/24HR PATCH TRANSDERM SCH (11:00)
--- NOTE | 2018-05-18 11:00 | P.PCN ---
Date of Procedure: 05/18/18 Preoperative Diagnosis: High degree AV block and syncope Postoperative Diagnosis: The same Procedure(s) Performed: Permanent pacemaker implantation, dual-chamber Description of Procedure: HISTORY: This is a 67-year-old female with history of hypertension who has been having recurrent episodes of syncope/seizure. Patient was admitted to the hospital this time with increasing episodes of seizures. She was found to have evidence of high degree AV block with pauses up to 4 to 5 seconds. Patient is advised to have permanent pacemaker implantation. Patient already had a temporary pacemaker. CONSENT:I have discussed the risks, benefits and alternative therapies for the above-mentioned procedure and for both sedation/analgesia as well as necessary blood product administration, if indicated, as they pertain to this patient. The patient has indicated understanding and acceptance of the risks and procedures discussed. PROCEDURE: Patient was brought to the lab in a fasting state. Patient was prepped and draped in the usual fashion. Patient was given IV sedation with fentanyl and Versed. The skin below the left clavicle was infiltrated with lidocaine. An incision was made parallel to deltopectoral groove was deepened until the pectoral fascia was exposed. A pocket was created by blunt dissection and cautery. Axillary venography was performed to delineate the course of the axillary vein. 2 sticks were performed into extrathoracic portion of the axillary vein and 2 sheaths were advanced over the guidewires and left in subclavian vein. Conscious Sedation: Versed 1 mg Fentanyl 100 g Duration 55minutes LEADS: ATRIAL: This is manufactured by [employer]. The model number is [id number]/46 cm. The serial number is [id number]. VENTRICULAR: THIS IS MANUFACTURED BY [employer]. The model number is 2088/58 cm. The model number is [id number] The ventricular lead is maneuvered l with help of a straight and curved stylets into the left ventricle apical region. Satisfactory position was obtained and threshold measurements were made. The atrial lead was then maneuvered into the right atrial appendage. And thresholds were obtained. THRESHOLDS: ATRIUM:. The minimum pacing threshold was 0.75 V at a pulse width of 0.5 ms. The impedance is 450 ohms. The P-wave is 3.9 mV VENTRICLE: The minimal patient threshold is 0.75 at pulse width of 0.5 ms. The R-wave is more than 12. The impedance is 8 and 30 ohms The leads and pulse generator remained in the pocket after it was washed with antibiotics. Pocket was closed in the usual fashion. The fascia was closed with 2-0 Prolene ,the subcutaneous tissue was closed with 3-0 Prolene and the skin was closed with 4-0 Prolene. PROGRAMMING: MODE: DDD RATE: 60- 120 OUTPUT: Atrium 3.5 Ventricle: 3.5 V FINAL IMPRESSION: #1 axillary venography #2. Successful implantation of dual- chamber pacemaker COMPLICATIONS: None PLAN: Patient will be monitored on the telemetry unit. Prophylactic antibiotics and be continued. Possible discharge within 24 hours
[2018-05-18] MEDS ORDERED: ONDANSETRON 4 MG/2 ML VIAL IVP PRN (11:16)
--- NOTE | 2018-05-18 12:58 | P.PN ---
Subjective Progress Note Date: 05/18/18 Principal diagnosis: Intermittent high-grade AV block, Symptomatic bradycardia, intermittent heart block, intermittent seizures, seizure disorder, degenerative joint disease osteoarthritis, severe morbid obesity possible sleep disorder breathing and sleep apnea 05/18/2018, patient seen eval examined during the rounds she is status post DDD double chamber pacemaker, for symptomatic bradycardia and high-grade AV block with along positives and syncope, EEG is pending no more seizure-like activity or near-syncope has been noted and hemodynamic status stable denies any chest pain or breathing difficulty, labs reviewed medications reviewed 05/17/2018, patient seen eval examined during the rounds patient has being monitored on selective care on a telemetry bed where patient is having high- grade AV block with symptoms and dizziness and significant bradycardia episodes are episode ache patient is being followed by cardiovascular service as well as neurology service no active seizures were seen patient does have symptoms of ongoing dizziness, appears to be related to intermittent heart block, patient is being considered for a permanent pacemaker by cardiovascular services 67-year-old female with a past medical history of seizure disorder, hypertension presents to the emergency department for a chief complaint of possible change in baseline of seizures as well as syncopal episode, occurred 2 days prior to coming into the hospital Patient states she was diagnosed with seizures last year in May and started on Keppra by Dr. Moy. Patient states that 1 month ago she started to have an increase in seizures and Dr. Moy increased her Keppra from 1000 mg to 1500 mg twice a day. Patient states she is now experiencing seizures every day. She states she last had a seizure about 4 hours before coming into the hospital. She denies hitting her head and states her boyfriend saw her fall and he said she did not hit her head. Patient denies any loss of bladder or bowel function. She denies biting her tongue. Patient states she almost threw up afterwards. She denies any injuries.Patient has no other complaints at this time including shortness of breath, chest pain, abdominal pain, nausea or vomiting, headache, or visual changes. Patient has been evaluated by a computed tomography scan of the head as well as chest x-ray, carotid duplex as well as echocardiogram is performed as well, echocardiogram is significant for ejection fraction of 55-60%, trace MR is noted along with TR, mild elevation of right-sided systolic blood pressure is noted off 29 mm Hg, carotid duplex is negative for any significant stenosis EKG revealed sinus bradycardia and right bundle branch block and LVH, computed tomography scan of the head suggestive of small meningioma of 1.8 x 1.4 cm in midline without any significant change compared to one performed back in August 2017, along with some arthritic changes seen in C-spine, chest x-ray unremarkable Objective - Vital Signs Vital signs: Vital Signs Temp 97.7 F 05/18/18 12:00 Pulse 80 05/18/18 12:00 Resp 15 05/18/18 12:00 BP 144/93 05/18/18 12:00 Pulse Ox 94 L 05/18/18 12:00 Intake & Output 05/17/18 05/18/18 05/18/18 18:59 06:59 18:59 Intake Total 580 645 225 Output Total 900 850 600 Balance -320 -205 -375 Intake: IV 595 225 Sodium Chloride 0.9% 1, 545 225 000 ml @ 75 mls/hr IV . [id number] JOY[facility] Rx#:[id number] Oral 580 50 Output: Urine 900 850 600 Other: Voiding Method Bedpan Bedpan # Voids 2 # Bowel Movements 0 - Exam GENERAL EXAM: Patient is alert and oriented and doesn't appear to be in any acute distress HEENT: Normocephalic. Normal reaction of pupils, equal size, normal range of extraocular motion. No erythema or exudates in the throat. NECK: No masses, no nuchal rigidity. CHEST: No chest wall deformity. LUNGS: Equal air entry with no crackles or wheeze. HEART: S1 and S2 normal with no audible mumurs or gallops. Regular rhythm, femorals equal on both sides.. ABDOMEN: No hepatosplenomegaly, normal bowel sounds, no guarding or rigidity. SKIN: No rashes CENTRAL NERVOUS SYSTEM: No focal deficits. EXTREMITIES: No cyanosis, clubbing or edema. - Labs CBC & Chem 7: 05/18/18 05:24 05/18/18 05:24 Labs: Abnormal Lab Results - Last 24 Hours (Table) 05/15/18 05/16/18 05/17/18 Range/Units 17:30 16:11 22:26 Glucose (74-99) mg/dL POC Glucose (mg/dL) 101 H (75-99) mg/dL Levetiracetam 67.3 H 60.8 H (3.0-60.0) ug/mL 05/18/18 Range/Units 05:24 Glucose 101 H (74-99) mg/dL POC Glucose (mg/dL) (75-99) mg/dL Levetiracetam (3.0-60.0) ug/mL Assessment and Plan Assessment: High-grade AV block with significant symptomatic bradycardia and sinus arrest and pauses Recurrent syncopal episode with symptoms related to above Recurrent mini seizure, likely related to above Near syncope related to above Hypertension hypertensive cardiovascular disease Chronic neuropathy Meningioma likely Asymptomatic bradycardia C-spine stenosis Plan: Status post DDD permanent pacemaker placement We will use lorazepam for short-lived seizure as needed, however it appears that patient is symptomatic more so for a rhythm problem rather than seizures Continue Keppra as per recommended by neurology service Continued DVT and peptic ulcer disease prophylaxis Will keep patient in selective care no need to transfer to the ICU for now Monitor observe bradycardia closely as hemodynamic status is stable Further recommendations pending plan of care as per clinical response of the patient Time with Patient: Greater than 30
[2018-05-18] MEDS: OXYBUTYNIN CHLORIDE 5 MG TAB PO SCH ×2 (13:46→21:09)
[2018-05-18] MEDS: HEPARIN SODIUM,PORCINE 5,000 UNIT/ML 1 ML VIAL SQ SCH ×2 (13:46→21:10)
[2018-05-18] MEDS: MULTIVITAMINS, THERA 1 EACH TAB PO SCH (13:46)
--- NOTE | 2018-05-18 13:58 | P.CN ---
Psychiatric Consult - . Consult date: 05/18/18 Consult:: 05/18/18 09:45 Depression Assessment and Plan Assessment: HPI: 67-year-old female with a past medical history of seizure disorder, hypertension presents to the emergency department for a chief complaint of possible change in baseline of seizures. Patient states she was diagnosed with seizures last May and started on Keppra by Dr. Moy. Patient states that 1 month ago she started to have an increase in seizures and Dr. Moy increased her Keppra from 1000 mg to 1500 mg twice a day. Patient states she is now experiencing seizures every day. She states she last had a seizure about 4 hours ago. She states she was outside when she a lot and fell on her bottom. She denies hitting her head and states her boyfriend saw her fall and he said she did not hit her head. Patient denies any loss of bladder or bowel function. She denies biting her tongue. Patient states she almost threw up afterwards. She denies any injuries.Patient has no other complaints at this time including shortness of breath, chest pain, abdominal pain, nausea or vomiting, headache, or visual changes. Psychiatric interview HPI: This is a pleasant 67-year-old female who has been depressed and her primary care physician has placed her on Cymbalta which has resulted in her feeling still depressed and overwhelmed. She describes that she has a daughter 36 years of age 3 children 3 fathers one marriage failed and with the of her has been overwhelmed with life circumstances. She does have a supportive boyfriend will help her make Thanksgiving dinner this week. She retired from work and has had physical ailments that has made her more increased and her depression. She has periods of anxiety and hopelessness. She was fearful that she was having seizures and now is grateful to understand that she needed a pacemaker. - Related Data Home Medications Medication Instructions Recorded Confirmed Baclofen [Lioresal] 10 mg PO BID 04/26/17 05/15/18 Cetirizine HCl [Zyrtec] 10 mg PO DAILY 04/26/17 05/15/18 DULoxetine HCL [Cymbalta] 60 mg PO DAILY 04/26/17 05/15/18 Gabapentin [Neurontin] 600 mg PO Q6H 04/26/17 05/15/18 Liothyronine Sodium [Cytomel] 10 mcg PO [id number] 04/26/17 05/15/18 Losartan Potassium [Cozaar] 100 mg PO DAILY 04/26/17 05/15/18 Multivitamins, Thera [Multivitamin 1 tab PO DAILY 04/26/17 05/15/18 (formulary)] Oxybutynin Chloride [Ditropan] 5 mg PO BID 04/26/17 05/15/18 Pantoprazole Sodium [Protonix] 40 mg PO DAILY 04/26/17 05/15/18 amLODIPine [Norvasc] 5 mg PO DAILY 04/26/17 05/15/18 oxyCODONE-APAP 10-325MG [Percocet 1 tab PO Q8H PRN 04/26/17 05/15/18 10-325 mg] Metoprolol Tartrate [Lopressor] 25 mg PO BID 09/17/17 05/15/18 levETIRAcetam [Keppra] 500 mg PO BID 09/17/17 05/15/18 Ergocalciferol [Vitamin D2] 50,000 unit PO WE 05/15/18 05/15/18 Etodolac [Lodine] 300 mg PO BID 05/15/18 05/15/18 Levothyroxine Sodium [Synthroid] 112 mcg PO DAILY 05/15/18 05/15/18 levETIRAcetam [Keppra] 1,000 mg PO BID 05/15/18 05/15/18 Allergies Allergy/AdvReac Type Severity Reaction Status Date / Time adhesive tape Allergy Rash/Hives Verified 05/15/18 19:29 hydrocodone [From Vicodin] Allergy Rash/Hives Verified 05/15/18 19:29 metaxalone [From Skelaxin] Allergy Rash/Hives Verified 05/15/18 19:29 methocarbamol [From Robaxin] Allergy Rash/Hives Verified 05/15/18 19:29 Sulfa (Sulfonamide Allergy Rash/Hives Verified 05/15/18 19:29 Antibiotics) Mental Status Examination - General Appearance: [well groomed appears older than stated age] Speech/Language: [spontaneous Attitude/Behavior: [cooperative Mood: [ depressed, anxious,fearful, hopelessness] Affect: [ flat Orientation: [time, person, place situation] Thought Content: [wnl Risk Factors: [She is not suicidal (ideations, plan) nor Homicidal (ideations, plan), other] Perception: [wnl Thought Processes: [goal-oriented Concentration/Attention Span: [wnl] [Per observation and interview with the patient] Recent Memory: [wnl Remote Memory: [wnl ] [past events, as related history] Intelligence: [ average] [based on history, based on vocabulary, syntax, grammar , and content] Judgement: [good ] [per patient's behavior/history of present illness] Insight: [good ] [understanding severity of illness/history of present illness] Psychiatric clinical impression: Major depressive disordermoderate: Situational anxietyadjustment disorder Psychiatric recommendations: She is currently on Cymbalta and feels this is not helping her. She talked that her primary care that he had to wean Cymbalta when he actually you don't sense is in the fluoxetine family. Since she has multiple somatic complaints a better antidepressant would be venlafaxine ( Effexor) which better for anxiety and as the author on Chronic pain study, we found doses alert and 150 mg or greater were insufficient in treating depression and anxiety and chronic pain. Starting dose will be 37 Mg XR by mouth daily at bedtime every 3 days raising it until reaching the maximum dose after 2 weeks 150 mg XL by mouth daily at bedtime. I would recommend not starting this dose until she is outpatient and should follow up with a psychiatrist as opposed to her primary care physician. People with cardiac events usually require higher risk for developing severe depression plus really needs to follow up with a mental health provider. Also noted that she is on Cytomel and Synthroid with a TSH that's low and a T4 is normal. I recommending getting a T3 level as well since she's being augmented with Cytomel. This sometimes can lead to worsening depression and it would be fruitful to evaluate she is in the hospital. Pending the EEG would also probably be prudent to consider titration off Keppra since his been noted to cause some worsening of depression and evidence-based psychosis and the literature. Thank you for the consult for this most interesting patient Rio Flores D.O. PhD attending psychiatrist Myriam Lowe (1) Depression (emotion) Current Visit: Yes Status: Acute Code(s): F32.9 - MAJOR DEPRESSIVE DISORDER , SINGLE EPISODE, UNSPECIFIED SNOMED Code(s): 88632147
[2018-05-18] MEDS: LEVOTHYROXINE 112 MCG TAB PO SCH (16:37)
[2018-05-18] MEDS: BACLOFEN 10 MG TAB PO SCH ×2 (16:37)
[2018-05-18] MEDS: ceFAZolin IN SWFI 2 GM/20 ML SYRINGE IVP SCH ×2 (16:38→21:09)
--- NOTE | 2018-05-18 17:12 | P.PN ---
Subjective Progress Note Date: 05/18/18 Principal diagnosis: Patient is a pleasant 67-year-old female who is being followed by the neurology service for seizures. Patient follows in the office for seizures and back pain. Patient started having seizures approximately a year and half ago and was placed on Keppra. Recently Keppra was increased due to breakthrough seizures. Patient reports increasing frequency of seizure activity. She describes seizure activity as consistent with previous seizure activity. Patient states there is an aura prior to seizure with extreme nausea and occasional headache. Patient denies loss of bowel or bladder function. Patient denies biting her tongue. Cardiology was consulted for possible cardiac etiology. Following admission to the hospital, patient was placed on telemetry and was found to have significant cardiac arrhythmia with a second- degree AV block. This is likely causing patient's symptoms. Patient is due to have a permanent pacemaker implant tomorrow. At the time of my evaluation, patient is resting comfortably in bed and appears to be in no acute distress. 05/18/2018 Patient is a pleasant 67-year-old female who is being followed by the neurology service for seizures. Patient has been on seizure medicine for the last year. Patient has had episodes with witnessed seizure-like activity and was placed on Keppra. Episodes slowed down but continued. Patient came to the hospital with seizure like episode and was found to be bradycardic. Cardiology was consulted. After further investigation it is noted that patient was probably having a second-degree block causing her to have syncopal episodes. Patient is status post pacemaker today and has no recurrence of syncopal episodes thus far. It is likely the episodes that were seizure-like were actually cardiac related. Patient was supposed to follow up with cardiology last May and never followed through. At the time of my evaluation, patient 's resting comfortably in bed in the ICU. Patient does not appear to be in any acute distress. Objective - Vital Signs Vital signs: Vital Signs Temp 98 F 05/18/18 16:00 Pulse 74 05/18/18 16:30 Resp 11 L 05/18/18 16:30 BP 142/77 05/18/18 16:30 Pulse Ox 92 L 05/18/18 16:30 Intake & Output 05/17/18 05/18/18 05/18/18 18:59 06:59 18:59 Intake Total 580 645 450 Output Total 900 850 600 Balance -320 -205 -150 Intake: IV 595 450 Sodium Chloride 0.9% 1, 545 450 000 ml @ 75 mls/hr IV . [id number] [facility] Rx#:[id number] Oral 580 50 Output: Urine 900 850 600 Other: Voiding Method Bedpan Bedpan # Voids 2 # Bowel Movements 0 - Exam PHYSICAL EXAM: GENERAL APPEARANCE: Patient is a well-developed, female who appears to be in no acute distress. HEENT: Normocephalic, atraumatic, no facial asymmetry is seen. Neck is supple with no masses felt. CARDIOVASCULAR: Regular rate and rhythm. Status post pacemaker. ABDOMEN: Nontender, nondistended. EXTREMITIES: Show no edema or clubbing. NEUROLOGICAL EXAM: Patient is awake, alert, and oriented 3. Speech and language are normal. Strength is full in all 4 extremities. Sensory exam to light touch is normal in all 4 extremities. No facial asymmetry is seen on cranial nerve testing. No seizures or tremors noted. - Labs CBC & Chem 7: 05/18/18 05:24 05/18/18 05:24 Labs: Abnormal Lab Results - Last 24 Hours (Table) 05/15/18 05/16/18 05/17/18 Range/Units 17:30 16:11 22:26 Glucose (74-99) mg/dL POC Glucose (mg/dL) 101 H (75-99) mg/dL Levetiracetam 67.3 H 60.8 H (3.0-60.0) ug/mL 05/18/18 Range/Units 05:24 Glucose 101 H (74-99) mg/dL POC Glucose (mg/dL) (75-99) mg/dL Levetiracetam (3.0-60.0) ug/mL Assessment and Plan Plan: Impression: 1. Questionable seizure disorder 2. Chronic back pain 3. Hypertension 4. Hypothyroid 5. Elevated liver enzymes 6. 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 Bradycardia 8. Cardiac arrhythmia/status post pacemaker Recommendation: Patient seemed to be having more frequent breakthrough seizures on current medicine which is Keppra 1500 mg twice a day. Patient states episodes are happening daily. Patient was found to have bradycardia on admission and cardiology was consulted. Patient was placed on telemetry and found to have second-degree AV block causing symptoms. Patient had a permanent pacemaker implantation today. EEG and Keppra level are pending. I will decrease her Keppra dose to 1000 mg twice a day. Further weaning of Keppra can be done in the outpatient setting. If any further seizure-like episodes occur, patient will likely need 72 hour EEG. For now, patient's episodes seem to be cardiac related and have subsided since pacemaker implant. Continue cardiology management. Continue seizure precautions. Continue neurological checks. I will continue to follow with you. Further recommendations to follow testing. I performed an examination of the patient and discussed the management with the HOT CAR OPERATOR. I have reviewed the HOT CAR OPERATOR notes and agree with the findings and plan of care.
[2018-05-18] MEDS: LIOTHYRONINE SODIUM 5 MCG TAB PO SCH (21:09)
--- NOTE | 2018-05-18 22:38 | PN ---
PROGRESS NOTE SUBJECTIVE: This patient is a 67-year-old white female with a high-grade AV block. Temporal pacemaker was placed last night. She is going for a full pacemaker at this time. EEG shows no more seizure activity. Vital signs stable. Afebrile. CARDIOVASCULAR: S1, S2. LUNGS: Clear to auscultation. PSYCH: Fair mood and affect. GI: Soft. HEMATOLOGY: Negative Homans. ASSESSMENT: 1. High-grade AV jorge block. 2. Symptomatic bradycardia. 3. Recurrent syncopal episode. 4. Recurrent mini seizure. 5. Near-syncope. 6. Hypertensive cardiovascular disease. 7. Chronic neuropathy. 8. Meningioma. 9. bradycardia. 10.Cervical spine stenosis. Placement of permanent pacemaker. Possible discharge home in the next 24 to 48 hours with an event monitor. Santos for seizures. Continue current treatment. MMODL / FRANCN: [id number] /
[2018-05-19] MEDS: GABAPENTIN 300 MG CAP PO SCH ×2 (02:25→08:06)
[2018-05-19] MEDS: ceFAZolin IN SWFI 2 GM/20 ML SYRINGE IVP SCH ×2 (02:26→08:11)
[2018-05-19 05:42] LABS: Basophils # (A) 0.1 k/uL (0-0.2); Basophils % (A) 1 %; Eosinophils # (A) 0.5 k/uL (0-0.7); Eosinophils % (A) 6 %; HCT 38.8 % (34.0-46.0); Lymphocytes # (A) 1.7 k/uL (1.0-4.8); Lymphocytes % (A) 23 %; MCH 29.5 pg (25.0-35.0); MCHC 33.5 g/dL (31.0-37.0); MCV 88.2 fL (80.0-100.0); Mean Platelet Volume 7.4; Monocytes # (A) 0.6 k/uL (0-1.0); Monocytes % (A) 8 %; Neutrophils # (A) 4.4 k/uL (1.3-7.7); Neutrophils % (A) 60 %; Platelet Count 245 k/uL (150-450); RDW 13.9 % (11.5-15.5); WBC 7.3 k/uL (3.8-10.6)
[2018-05-19] MEDS: oxyCODONE-APAP 10-325MG 1 EACH TAB PO PRN (05:43)
[2018-05-19 05:53] LABS: Anion Gap 7 mmol/L; Blood Urea Nitrogen 14 mg/dL (7-17); Calcium 8.8 mg/dL (8.4-10.2); Carbon Dioxide 27 mmol/L (22-30); Chloride 106 mmol/L (98-107); Glucose 96 mg/dL (74-99); Magnesium 2.1 mg/dL (1.6-2.3); Phosphorus 5.7 mg/dL (2.5-4.5); Potassium 3.6 mmol/L (3.5-5.1); Sodium 140 mmol/L (137-145)
[2018-05-19] MEDS ORDERED: POTASSIUM CHLORIDE ER 20 MEQ TAB.ER PO SCH (07:00)
[2018-05-19] MEDS: LEVOTHYROXINE 112 MCG TAB PO SCH (07:25)
--- NOTE | 2018-05-19 07:54 | XR ---
EXAMINATION TYPE: XR chest 1V DATE OF EXAM: 05/19/2018 COMPARISON: Prior chest x-ray 05/15/2018 HISTORY: Lead placement check TECHNIQUE: Single frontal view of the chest is obtained. FINDINGS: There is no focal air space opacity, pleural effusion, or pneumothorax seen. The cardiac silhouette size is stable. The osseous structures are intact. Generator has been placed in the left pectoral region, there are leads in the right atrium and ventricle. Postop change again noted to the lower thoracic spine. There are overlying cardiac leads. IMPRESSION: No evident complication status post lead placement.
[2018-05-19] MEDS: SODIUM CHLORIDE 0.9% 1,000 ML IV SCH (07:57)
[2018-05-19] MEDS: BACLOFEN 10 MG TAB PO SCH (08:05)
[2018-05-19] MEDS: MULTIVITAMINS, THERA 1 EACH TAB PO SCH (08:06)
[2018-05-19] MEDS: HEPARIN SODIUM,PORCINE 5,000 UNIT/ML 1 ML VIAL SQ SCH (08:06)
[2018-05-19] MEDS: levETIRAcetam 500 MG TAB PO SCH (08:06)
[2018-05-19] MEDS: PANTOPRAZOLE 40 MG TABLET PO SCH (08:06)
[2018-05-19] MEDS: LOSARTAN 50 MG TAB PO SCH (08:06)
[2018-05-19] MEDS: OXYBUTYNIN CHLORIDE 5 MG TAB PO SCH (08:06)
[2018-05-19] MEDS: DULoxetine HCL 60 MG CAPSULE.DR PO SCH (08:06)
[2018-05-19] MEDS: LORATADINE 10 MG TAB PO SCH (08:07)
[2018-05-19] MEDS: ETODOLAC 300 MG CAPSULE PO SCH (08:07)
[2018-05-19] MEDS: amLODIPine 5 MG TAB PO SCH (08:07)
--- NOTE | 2018-05-19 09:53 | P.PN ---
Subjective Progress Note Date: 05/19/18 Principal diagnosis: Intermittent high-grade AV block, Symptomatic bradycardia, intermittent heart block, intermittent seizures, seizure disorder, degenerative joint disease osteoarthritis, severe morbid obesity possible sleep disorder breathing and sleep apnea 05/19/2018, patient seen evanabella examined during the rounds clinically patient is a doing slightly better in terms of breathing no more episodes of seizure-like activity has been noted patient is status post a permanent pacemaker postop day #1, chest x-ray performed earlier today reviewed no complication noted fairly unremarkable 05/18/2018, patient seen evanabella examined during the rounds she is status post DDD double chamber pacemaker, for symptomatic bradycardia and high-grade AV block with along positives and syncope, EEG is pending no more seizure-like activity or near-syncope has been noted and hemodynamic status stable denies any chest pain or breathing difficulty, labs reviewed medications reviewed 05/17/2018, patient seen evanabella examined during the rounds patient has being monitored on selective care on a telemetry bed where patient is having high- grade AV block with symptoms and dizziness and significant bradycardia episodes are episode ache patient is being followed by cardiovascular service as well as neurology service no active seizures were seen patient does have symptoms of ongoing dizziness, appears to be related to intermittent heart block, patient is being considered for a permanent pacemaker by cardiovascular services 67-year-old female with a past medical history of seizure disorder, hypertension presents to the emergency department for a chief complaint of possible change in baseline of seizures as well as syncopal episode, occurred 2 days prior to coming into the hospital Patient states she was diagnosed with seizures last year in May and started on Keppra by Dr. Moy. Patient states that 1 month ago she started to have an increase in seizures and Dr. Moy increased her Keppra from 1000 mg to 1500 mg twice a day. Patient states she is now experiencing seizures every day. She states she last had a seizure about 4 hours before coming into the hospital. She denies hitting her head and states her boyfriend saw her fall and he said she did not hit her head. Patient denies any loss of bladder or bowel function. She denies biting her tongue. Patient states she almost threw up afterwards. She denies any injuries.Patient has no other complaints at this time including shortness of breath, chest pain, abdominal pain, nausea or vomiting, headache, or visual changes. Patient has been evaluated by a computed tomography scan of the head as well as chest x-ray, carotid duplex as well as echocardiogram is performed as well, echocardiogram is significant for ejection fraction of 55-60%, trace MR is noted along with TR, mild elevation of right-sided systolic blood pressure is noted off 29 mm Hg, carotid duplex is negative for any significant stenosis EKG revealed sinus bradycardia and right bundle branch block and LVH, computed tomography scan of the head suggestive of small meningioma of 1.8 x 1.4 cm in midline without any significant change compared to one performed back in August 2017, along with some arthritic changes seen in C-spine, chest x-ray unremarkable Objective - Vital Signs Vital signs: Vital Signs Temp 98.1 F 05/19/18 08:00 Pulse 78 05/19/18 09:00 Resp 15 05/19/18 09:00 BP 141/68 05/19/18 09:00 Pulse Ox 92 L 05/19/18 09:00 Intake & Output 05/18/18 05/19/18 05/19/18 18:59 06:59 18:59 Intake Total 675 950 60 Output Total 600 Balance 75 950 60 Weight 99 kg Intake: IV 675 350 60 Sodium Chloride 0.9% 1, 675 350 60 000 ml @ 75 mls/hr IV . [id number] [facility] Rx#:[id number] Oral 600 Output: Urine 600 Other: Voiding Method Bedpan Toilet Toilet # Voids 1 1 - Exam GENERAL EXAM: Patient is alert and oriented and doesn't appear to be in any acute distress HEENT: Normocephalic. Normal reaction of pupils, equal size, normal range of extraocular motion. No erythema or exudates in the throat. NECK: No masses, no nuchal rigidity. CHEST: No chest wall deformity. LUNGS: Equal air entry with no crackles or wheeze. HEART: S1 and S2 normal with no audible mumurs or gallops. Regular rhythm, femorals equal on both sides.. ABDOMEN: No hepatosplenomegaly, normal bowel sounds, no guarding or rigidity. SKIN: No rashes CENTRAL NERVOUS SYSTEM: No focal deficits. EXTREMITIES: No cyanosis, clubbing or edema. - Labs CBC & Chem 7: 05/19/18 05:24 05/19/18 05:24 Labs: Abnormal Lab Results - Last 24 Hours (Table) 05/19/18 Range/Units 05:24 Phosphorus 5.7 H (2.5-4.5) mg/dL Assessment and Plan Assessment: High-grade AV block with significant symptomatic bradycardia and sinus arrest and pauses Recurrent syncopal episode with symptoms related to above Recurrent mini seizure, likely related to above Near syncope related to above Hypertension hypertensive cardiovascular disease Chronic neuropathy Meningioma likely Asymptomatic bradycardia C-spine stenosis Plan: Status post DDD permanent pacemaker placement We will use lorazepam for short-lived seizure as needed, however it appears that patient is symptomatic more so for a rhythm problem rather than seizures Continue Keppra as per recommended by neurology service Continued DVT and peptic ulcer disease prophylaxis Will keep patient in ICU for now once cleared by cardiovascular services can be moved out of the ICU Monitor observe bradycardia closely as hemodynamic status is stable Further recommendations pending plan of care as per clinical response of the patient Time with Patient: Greater than 30
[2018-05-19 12:22] VITALS: BP 145/69; PULSE 82; RESP 22; TEMP 98
--- NOTE | 2018-05-19 12:34 | PN ---
PROGRESS NOTE This patient was admitted with a history of syncope. Patient was found to have intermittent high-degree AV block and underwent pacemaker placement. The patient is doing well. Incision site looks good. The pacemaker was checked and the pacemaker is working normally. Blood pressure is 141/72 mmHg;. First and second heart sounds are normal. Lungs are clinically clear to auscultation and percussion. Patient has been ambulating in the room. We will ambulate in the hallway and if patient is doing well, she can be discharged home on current blood pressure medications which include amlodipine 5 mg daily, Lopressor 25 mg b.i.d., Cozaar 100 mg daily. Continue the rest of the medications. Patient will follow up with Dr. Scott as an outpatient. MMKATELYNL / FRANCN: [id number] /
[2018-05-20] MEDS ORDERED: ERGOCALCIFEROL 50,000 UNIT CAP PO SCH (09:00)
== END 2018-05-19 14:02 | disposition home or self-care (01) | DRG 243 ==
LOC: EC 15:59 → 4SSUR 05-16 01:00 → 3SCARD 05-17 04:12 → 2SICU 05-17 21:51
PROVIDERS: ADMIT Family Medicine; ATTEND Family Medicine
PROC: 02HK3JZ Insertion of Pacemaker Lead into Right Ventricle, Percutaneous Approach (ICD-10-PCS; 2018-05-18)
PROC: 02H63JZ Insertion of Pacemaker Lead into Right Atrium, Percutaneous Approach (ICD-10-PCS; 2018-05-18)
PROC: 5A1223Z Performance of Cardiac Pacing, Continuous (ICD-10-PCS; 2018-05-18)
PROC: 0JH606Z Insertion of Pacemaker, Dual Chamber into Chest Subcutaneous Tissue and Fascia, Open Approach (ICD-10-PCS; principal; 2018-05-18 06:00)
DX: I44.1 Atrioventricular block, second degree (principal); G40.919 Epilepsy, unspecified, intractable, without status epilepticus; E03.9 Hypothyroidism, unspecified; M48.02 Spinal stenosis, cervical region; Z96.652 Presence of left artificial knee joint; Z96.642 Presence of left artificial hip joint; R29.6 Repeated falls; E66.01 Morbid (severe) obesity due to excess calories; Z79.899 Other long term (current) drug therapy; Z79.890 Hormone replacement therapy; Z88.5 Allergy status to narcotic agent; Z88.2 Allergy status to sulfonamides; Z88.8 Allergy status to other drugs, medicaments and biological substances; Z90.49 Acquired absence of other specified parts of digestive tract; G62.9 Polyneuropathy, unspecified; D32.9 Benign neoplasm of meninges, unspecified; I11.9 Hypertensive heart disease without heart failure; M19.90 Unspecified osteoarthritis, unspecified site; W19.XXXA Unspecified fall, initial encounter; Z80.49 Family history of malignant neoplasm of other genital organs; Z83.3 Family history of diabetes mellitus
CPT/HCPCS: 33208; 33210; 36415; 70450; 71045; 71046; 72125; 80048; 80053; 80177; 80320; 81003; 82550; 82553; 83605; 83735; 84100; 84439; 84443; 84484; 85025; 85610; 85730; 93005; 93306; 93880; 96360; 99285

== ENCOUNTER → 2019-04-23 | Outpatient (CLI) | payer MEDICARE ==
--- NOTE | 2019-04-23 14:51 | CT ---
EXAMINATION TYPE: CT brain wo con DATE OF EXAM: 04/23/2019 COMPARISON: 05/15/2018 HISTORY: Headaches, syncope and neck pain. CT DLP: 1098.[address] of the brain was performed. The ventricles, basal cisterns and sulci overlying the cerebral convexities demonstrate mild enlargem ent. There is no evidence for intracranial hemorrhage or sulcal effacement. There is decreased attenuation about the periventricular white matter and deep white matter of both c erebral hemispheres, compatible with chronic small vessel ischemia. Differential diagnosis does inclu de demyelination. There is 1.8 x 1.4 cm partly calcified mass at the anterior aspect of the sella turcica. No midline s hift. Osseous calvarium is intact. If symptoms persist consider MRI. IMPRESSION: 1. Age related atrophic and chronic small vessel ischemic change without acute intracranial process s een at this time. 2. Stable suprasellar meningioma.
== END | disposition home or self-care (01) ==
LOC: RADCTMAIN 13:25
PROVIDERS: ATTEND Psychiatry & Neurology Neurology
DX: I67.82 Cerebral ischemia (principal); G31.1 Senile degeneration of brain, not elsewhere classified; D32.0 Benign neoplasm of cerebral meninges; M54.2 Cervicalgia
CPT/HCPCS: 70450

== ENCOUNTER 2020-10-25 06:22 | Emergency (ER) | payer MEDICARE ==
[2020-10-25 06:36] VITALS: PULSE 101; RESP 18
[2020-10-25] MEDS ORDERED: ACETAMINOPHEN TAB 500 MG TAB PO STA (06:43)
[2020-10-25] MEDS ORDERED: SODIUM CHLORIDE 0.9% 1,000 ML IV STA (06:43)
[2020-10-25] MEDS ORDERED: KETOROLAC 15 MG/ML 1 ML VIAL IVP STA (06:43)
--- NOTE | 2020-10-25 06:54 | ED ---
General Adult HPI - General Chief complaint: Fever Stated complaint: Nausea, vomiting Time Seen by Provider: 10/25/20 06:25 Source: patient, EMS, RN notes reviewed Mode of arrival: EMS Limitations: no limitations - History of Present Illness Initial comments: This is a 69-year-old female presents emergency Department via EMS chief complaint of nausea vomiting fever or chills bodyaches, cough. Patient states she received her second dose of moderna history and states that shortly after she started having the symptoms. Patient states she was not sick prior. Patient denies any diarrhea constipation denies dysuria hematuria denies neck pain or neck stiffness. She does have mild headache. She is not taking anything for her fever. Patient is a known diabetic. Patient states she has pacemaker. No chest pain. No shortness of breath. - Related Data Home Medications Medication Instructions Recorded Confirmed Baclofen [Lioresal] 10 mg PO BID 04/26/17 05/15/18 Cetirizine HCl [Zyrtec] 10 mg PO DAILY 04/26/17 05/15/18 DULoxetine HCL [Cymbalta] 60 mg PO DAILY 04/26/17 05/15/18 Gabapentin [Neurontin] 600 mg PO Q6H 04/26/17 05/15/18 Liothyronine Sodium [Cytomel] 10 mcg PO [id number] 04/26/17 05/15/18 Losartan Potassium [Cozaar] 100 mg PO DAILY 04/26/17 05/15/18 Multivitamins, Thera [Multivitamin 1 tab PO DAILY 04/26/17 05/15/18 (formulary)] Oxybutynin Chloride [Ditropan] 5 mg PO BID 04/26/17 05/15/18 Pantoprazole Sodium [Protonix] 40 mg PO DAILY 04/26/17 05/15/18 amLODIPine [Norvasc] 5 mg PO DAILY 04/26/17 05/15/18 oxyCODONE-APAP 10-325MG [Percocet 1 tab PO Q8H PRN 04/26/17 05/15/18 10-325 mg] Metoprolol Tartrate [Lopressor] 25 mg PO BID 09/17/17 05/15/18 levETIRAcetam [Keppra] 500 mg PO BID 09/17/17 05/15/18 Ergocalciferol [Vitamin D2] 50,000 unit PO WE 05/15/18 05/15/18 Etodolac [Lodine] 300 mg PO BID 05/15/18 05/15/18 Levothyroxine Sodium [Synthroid] 112 mcg PO DAILY 05/15/18 05/15/18 levETIRAcetam [Keppra] 1,000 mg PO BID 05/15/18 05/15/18 Previous Rx's Medication Instructions Recorded Ondansetron Odt [Zofran Odt] 4 mg PO Q8HR PRN #10 tab 10/25/20 Allergies Allergy/AdvReac Type Severity Reaction Status Date / Time adhesive tape Allergy Rash/Hives Verified 10/25/20 06:36 hydrocodone [From Vicodin] Allergy Rash/Hives Verified 10/25/20 06:36 metaxalone [From Skelaxin] Allergy Rash/Hives Verified 10/25/20 06:36 methocarbamol [From Robaxin] Allergy Rash/Hives Verified 10/25/20 06:36 Sulfa (Sulfonamide Allergy Rash/Hives Verified 10/25/20 06:36 Antibiotics) Review of Systems ROS Statement: Those systems with pertinent positive or pertinent negative responses have been documented in the HPI. ROS Other: All systems not noted in ROS Statement are negative. 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, back pain History of Any Multi-Drug Resistant Organisms: None Reported Past Surgical History: Back Surgery, Cholecystectomy, Joint Replacement, Orthopedic Surgery Additional Past Surgical History / Comment(s): left knee and left hip replacement, right wrist surgery, bilateral carpal tunnel release Past Anesthesia/Blood Transfusion Reactions: No Reported Reaction Past Psychological History: Anxiety Past Alcohol Use History: None Reported Past Drug Use History: None Reported - Past Family History Mother Family Medical History: Cancer Additional Family Medical History / Comment(s): from cervial CA Father Family Medical History: Diabetes Mellitus Additional Family Medical History / Comment(s): from DM complications General Exam Limitations: no limitations General appearance: alert, in no apparent distress Head exam: Present: atraumatic, normocephalic, normal inspection Eye exam: Present: normal appearance, PERRL, EOMI. Absent: scleral icterus, conjunctival injection, periorbital swelling Neck exam: Present: normal inspection, full ROM. Absent: tenderness, meningismus, lymphadenopathy Respiratory exam: Present: normal lung sounds bilaterally. Absent: respiratory distress, wheezes, rales, rhonchi, stridor Cardiovascular Exam: Present: regular rate, normal rhythm, normal heart sounds. Absent: systolic murmur, diastolic murmur, rubs, gallop, clicks GI/Abdominal exam: Present: soft, normal bowel sounds. Absent: distended, tenderness, guarding, rebound, rigid Neurological exam: Present: alert, oriented X3 Skin exam: Present: warm, dry, intact, normal color. Absent: rash Course Vital Signs 10/25/20 06:32 Temperature 101.1 F H Pulse Rate 101 H Respiratory 18 Rate Blood Pressure 158/98 O2 Sat by Pulse 90 L Oximetry EKG Findings - EKG Comments: EKG Findings:: EKG performed at 6:30 says rhythm with first-degree block rate of 98.4-28 QRS 162 QT/QTC 384/490 - EKG Results: EKG: interpreted by MARIA TERESA Medical Decision Making - Medical Decision Making 69-year-old female presented for nausea vomiting fever bodyaches. Patient's lab s are unremarkable negative covid Patient symptoms are most likely related to vaccine reaction. Patient vitals are improved, x-rays unremarkable. Patient states she feels improved Patient we discharged with Zofran return parameters were discussed. - Lab Data Result diagrams: 10/25/20 07:03 10/25/20 07:03 Lab Results 10/25/20 10/25/20 10/25/20 Range/Units 07:03 07:03 07:03 WBC 9.9 (3.8-10.6) k/uL RBC 4.97 (3.80-5.40) m/uL Hgb 14.7 (11.4-16.0) gm/dL Hct 43.0 (34.0-46.0) % MCV 86.6 (80.0-100.0) fL MCH 29.6 (25.0-35.0) pg MCHC 34.2 (31.0-37.0) g/dL RDW 13.9 (11.5-15.5) % Plt Count 236 (150-450) k/uL MPV 7.6 Neutrophils % 83 % Lymphocytes % 8 % Monocytes % 6 % Eosinophils % 1 % Basophils % 1 % Neutrophils # 8.2 H (1.3-7.7) k/uL Lymphocytes # 0.8 L (1.0-4.8) k/uL Monocytes # 0.6 (0-1.0) k/uL Eosinophils # 0.1 (0-0.7) k/uL Basophils # 0.1 (0-0.2) k/uL Sodium 136 L (137-145) mmol/L Potassium 4.1 (3.5-5.1) mmol/L Chloride 98 (98-107) mmol/L Carbon Dioxide 30 (22-30) mmol/L Anion Gap 8 mmol/L BUN 13 (7-17) mg/dL Creatinine 0.73 (0.52-1.04) mg/dL Est GFR (CKD-EPI)AfAm >90 (>60 ml/min/1.73 sqM) Est GFR (CKD-EPI)NonAf 84 (>60 ml/min/1.73 sqM) Glucose 138 H (74-99) mg/dL Calcium 8.8 (8.4-10.2) mg/dL Total Bilirubin 1.5 H (0.2-1.3) mg/dL AST 39 H (14-36) U/L ALT 21 (4-34) U/L Alkaline Phosphatase 85 (38-126) U/L Total Protein 7.1 (6.3-8.2) g/dL Albumin 4.3 (3.5-5.0) g/dL Lipase 12 L (23-300) U/L Urine Color Light Yellow Urine Appearance Clear (Clear) Urine pH 7.5 (5.0-8.0) Ur Specific [place] 1.013 (1.001-1.035) Urine Protein Negative (Negative) Urine Glucose (UA) Negative (Negative) Urine Ketones Negative (Negative) Urine Blood Negative (Negative) Urine Nitrite Negative (Negative) Urine Bilirubin Negative (Negative) Urine Urobilinogen 2.0 (<2.0) mg/dL Ur Leukocyte Esterase Negative (Negative) Influenza Type A (PCR) (Not Detectd) Influenza Type B (PCR) (Not Detectd) RSV (PCR) (Not Detectd) SARS-CoV-2 (PCR) (Not Detectd) 10/25/20 Range/Units 07:03 WBC (3.8-10.6) k/uL RBC (3.80-5.40) m/uL Hgb (11.4-16.0) gm/dL Hct (34.0-46.0) % MCV (80.0-100.0) fL MCH (25.0-35.0) pg MCHC (31.0-37.0) g/dL RDW (11.5-15.5) % Plt Count (150-450) k/uL MPV Neutrophils % % Lymphocytes % % Monocytes % % Eosinophils % % Basophils % % Neutrophils # (1.3-7.7) k/uL Lymphocytes # (1.0-4.8) k/uL Monocytes # (0-1.0) k/uL Eosinophils # (0-0.7) k/uL Basophils # (0-0.2) k/uL Sodium (137-145) mmol/L Potassium (3.5-5.1) mmol/L Chloride (98-107) mmol/L Carbon Dioxide (22-30) mmol/L Anion Gap mmol/L BUN (7-17) mg/dL Creatinine (0.52-1.04) mg/dL Est GFR (CKD-EPI)AfAm (>60 ml/min/1.73 sqM) Est GFR (CKD-EPI)NonAf (>60 ml/min/1.73 sqM) Glucose (74-99) mg/dL Calcium (8.4-10.2) mg/dL Total Bilirubin (0.2-1.3) mg/dL AST (14-36) U/L ALT (4-34) U/L Alkaline Phosphatase (38-126) U/L Total Protein (6.3-8.2) g/dL Albumin (3.5-5.0) g/dL Lipase (23-300) U/L Urine Color Urine Appearance (Clear) Urine pH (5.0-8.0) Ur Specific [place] (1.001-1.035) Urine Protein (Negative) Urine Glucose (UA) (Negative) Urine Ketones (Negative) Urine Blood (Negative) Urine Nitrite (Negative) Urine Bilirubin (Negative) Urine Urobilinogen (<2.0) mg/dL Ur Leukocyte Esterase (Negative) Influenza Type A (PCR) Not Detected (Not Detectd) Influenza Type B (PCR) Not Detected (Not Detectd) RSV (PCR) Not Detected (Not Detectd) SARS-CoV-2 (PCR) Not Detected (Not Detectd) Disposition Clinical Impression: Adverse reaction to COVID-19 vaccine Disposition: HOME SELF-CARE Condition: Stable Instructions (If sedation given, give patient instructions): Adverse Drug Reaction (ED) Additional Instructions: Please return to the Emergency Department if symptoms worsen or any other concerns. Prescriptions: Ondansetron Odt [Zofran Odt] 4 mg PO Q8HR PRN #10 tab PRN Reason: Nausea Is patient prescribed a controlled substance at d/c from ED?: No Referrals: Fernando Salazar MD [Primary Care Provider] - 1-2 days Time of Disposition: 08:31
[2020-10-25 07:20] LABS: Basophils # (A) 0.1 k/uL (0-0.2); Basophils % (A) 1 %; Eosinophils # (A) 0.1 k/uL (0-0.7); Eosinophils % (A) 1 %; HGB 14.7 gm/dL (11.4-16.0); Lymphocytes # (A) 0.8 k/uL (1.0-4.8); Lymphocytes % (A) 8 %; MCH 29.6 pg (25.0-35.0); MCHC 34.2 g/dL (31.0-37.0); MCV 86.6 fL (80.0-100.0); Mean Platelet Volume 7.6; Monocytes # (A) 0.6 k/uL (0-1.0); Monocytes % (A) 6 %; Neutrophils # (A) 8.2 k/uL (1.3-7.7); Neutrophils % (A) 83 %; Platelet Count 236 k/uL (150-450); RBC 4.97 m/uL (3.80-5.40); RDW 13.9 % (11.5-15.5); WBC 9.9 k/uL (3.8-10.6)
[2020-10-25 07:32] LABS: ALT 21 U/L (4-34); African American GFR (CKD) >90 (>60 ml/min/1.73 sqM); Albumin 4.3 g/dL (3.5-5.0); Carbon Dioxide 30 mmol/L (22-30); Chloride 98 mmol/L (98-107); Glucose 138 mg/dL (74-99); Non-African American GFR(CKD) 84 (>60 ml/min/1.73 sqM)
[2020-10-25 07:34] LABS: Anion Gap 8 mmol/L; Blood Urea Nitrogen 13 mg/dL (7-17); Calcium 8.8 mg/dL (8.4-10.2); Lipase 12 U/L (23-300); Sodium 136 mmol/L (137-145); Total Bilirubin 1.5 mg/dL (0.2-1.3); Total Protein 7.1 g/dL (6.3-8.2)
[2020-10-25 07:36] LABS: AST 39 U/L (14-36); Alkaline Phosphatase 85 U/L (38-126); Potassium 4.1 mmol/L (3.5-5.1)
[2020-10-25 08:09] LABS: Appearance,Urine Clear (Clear); Bilirubin,Urine Negative (Negative); Blood,Urine Negative (Negative); Color,Urine Light Yellow; Glucose,Urine (UA) Negative (Negative); Ketones,Urine Negative (Negative); Leukocyte Esterase,Urine Negative (Negative); Nitrite,Urine Negative (Negative); PH, Urine 7.5 (5.0-8.0); Protein,Urine Negative (Negative); Specific Gravity,Urine 1.013 (1.001-1.035)
[2020-10-25 08:38] VITALS: BP 144/74
[2020-10-25 08:39] VITALS: TEMP 98.4
--- NOTE | 2020-10-25 08:43 | XR ---
EXAMINATION TYPE: XR chest 2V DATE OF EXAM: 10/25/2020 COMPARISON: 05/19/2018 HISTORY: Shortness of breath TECHNIQUE: Frontal and lateral views of the chest are obtained. FINDINGS: Scattered senescent parenchymal changes noted. Mild prominence of lung markings without focal consolidation at this time. Heart size is stable. Mediastinal structures are stable and grossly unremarkable. No evidence for hilar prominence. Degenerative changes dorsal spine. IMPRESSION: 1. Mild prominence of lung markings without focal consolidation at this time.
== END 2020-10-25 08:39 | disposition home or self-care (01) ==
LOC: EC 06:22
DX: R11.2 Nausea with vomiting, unspecified (principal); T50.B95A Adverse effect of other viral vaccines, initial encounter; I10 Essential (primary) hypertension; M19.90 Unspecified osteoarthritis, unspecified site; E07.9 Disorder of thyroid, unspecified; G40.909 Epilepsy, unspecified, not intractable, without status epilepticus
CPT/HCPCS: 36415; 93005; 80053; 83690; 85025; 81003; 87636; 71046; 99284; 96374; 96361; J1885; 96375

== ENCOUNTER → 2023-04-01 | Outpatient (CLI) | payer MEDICARE ==
--- NOTE | 2023-04-02 11:49 | NM ---
EXAMINATION TYPE: NM bone 3 phase DATE OF EXAM: 04/01/2023 COMPARISON: NONE CLINICAL INDICATION: Female, 72 years old with history of Z96.642 PRESENCE OF LEFT ARTIFICIAL HIP BOBY NT; Triple phase bone scintigraphy was performed following the injection of 23.4 mCi Tc 99m MDP. Immedia te images and 5 hours post injection images acquired. FINDINGS: There is a photopenic defect involving the fifth compatible with previous surgery. There is mildly increased flow to the left hip. There is mildly increased soft tissue uptake to the l eft hip. Delayed images demonstrate mild to intermediate uptake adjacent to the trochanteric portion of the pr ostheses. IMPRESSION: 1. Mild increased flow and mild intermediate uptake involving the intertrochanteric portion of the le ft hip adjacent to the prostheses. This may simply be postsurgical. If there is concern for infection consider evaluation with tagged WBC study.
== END | disposition home or self-care (01) ==
LOC: RADNMMAIN 07:31
PROVIDERS: ATTEND Orthopaedic Surgery
DX: R93.7 Abnormal findings on diagnostic imaging of other parts of musculoskeletal system (principal); Z96.642 Presence of left artificial hip joint
CPT/HCPCS: 78315; A9503